=== PATIENT | male | born 1930 | race Two or more races ===

== ENCOUNTER → 2016-04-11 | Outpatient (CLI) | payer MEDICARE, OTHER ==
[~2016-04-11] MED LIST: /AMLO25TA; ACET500C; AMLO5TAB2 PO; ASPI325T; CEPH500T PO; CIPR500T89 PO; CIPR5SUS PO; CLARINEX; CLOP75TA2 PO; DIOV160T5; DITR5TAB PO; ECOT325T5; ESOM1CAP5 PO; FERR325T3 PO; FLOM5CAP PO; GABA-279 PO; IBUPPOW25; NEXI40GR; NICOTINE; OXYC1TAB23 PO; PROA1AER INH; SIMV20TA2 PO; SLOWTAB; SLOWTAB2 PO; STOO100C PO; VALS1TAB48 PO; VITAD1000T PO; VITAMIN D50000 UNT; ZOCO20TA
[2016-04-11 13:26] LABS: INR 1.03
[2016-04-11 13:28] LABS: CALCIUM LEVEL 8.9 MG/DL (8.8-10.2); CREATININE FOR GFR 3.2 MG/DL (0.70-1.30); GLOMERULAR FILTRATION RATE 19.8 (>35); MEAN CORPUSCULAR HEMOGLOBIN 31.8 pg (27.0-33.0); MEAN CORPUSCULAR HGB CONC 31.7 g/dl (32.0-36.5); MEAN CORPUSCULAR VOLUME 100.2 fl (80.0-96.0); RED CELL DISTRIBUTION WIDTH 13.3 % (11.5-14.5)
[2016-04-11 13:29] LABS: POTASSIUM SERUM 5.9 MEQ/L (3.5-5.1)
== END ==
LOC: M SMT 09:50
PROVIDERS: ATTEND Nurse Practitioner Women's Health
DX: Z01.818 Encounter for other preprocedural examination (principal); N13.2 Hydronephrosis with renal and ureteral calculous obstruction; Z79.899 Other long term (current) drug therapy
CPT/HCPCS: 36415; 80048; 85027; 85610; 85730; 87086; G0463

== ENCOUNTER → 2016-04-18 | Outpatient (CLI) | payer MEDICARE, OTHER ==
[~2016-04-18] MED LIST changes: -CEPH500T PO; -CIPR500T89 PO; -CIPR5SUS PO; -DITR5TAB PO; -OXYC1TAB23 PO
--- NOTE | 2016-04-18 11:37 | REP ---
Chest x-ray: Three views. History: Ureteral stone with hydronephrosis. Comparison chest x-ray is from April 16, 2014. Findings: The lungs remain rather hyperinflated consistent with COPD with flattening of the hemidiaphragms and an increase in the AP diameter of the chest. This is unchanged. The heart is not enlarged. The aorta is calcific and tortuous. There is some calcific pleural plaquing visible bilaterally suggesting previous asbestos exposure. This is also unchanged. No infiltrate is noted. No significant bony abnormality is seen. Impression: Evidence of COPD. No acute infiltrate or other acute disease seen. Signed by Sheng Harry MD 04/18/2016 12:28 P
== END ==
LOC: M SMT 10:06
PROVIDERS: ATTEND Nurse Practitioner Women's Health
DX: N13.2 Hydronephrosis with renal and ureteral calculous obstruction (principal)

== ENCOUNTER → 2016-04-21 | Day surgery (SDC) | payer MEDICARE, OTHER ==
[~2016-04-21] VITALS: Ht 165.1 cm; Wt 59.0 kg
[~2016-04-21] MED LIST changes: +CIPROFLOXACIN 400 MG in APPROPRIATE DILUENT 1 EA IV ONE; +CONRAY-60 60% 50ML VIAL (Q9961) As Ordered ONE; +DITR5TAB PO; +LIDOCAINE 2% INJ 100 MG/5 ML SDV (FOR ANES.) As Ordered ONE; +LR 1,000 ML IV SCH; +METOCLOPRAMIDE INJ 10MG/2ML VIAL (J2765) IV PRN; +ONDANSETRON 4MG/2ML VIAL (J2405) As Ordered ONE; +ONDANSETRON 4MG/2ML VIAL (J2405) IV PRN; +OXYC1TAB23 PO; +PERCOCET 5MG/325MG TAB PO PRN; +PROPOFOL 200 MG/20 ML VIAL As Ordered ONE; +dexameTHASONE 4 MG/ML 1ML VIAL (J1100) As Ordered ONE; +fentaNYL 100 MCG/2 ML INJECTION (J3010) As Ordered ONE; +fentaNYL 100 MCG/2 ML INJECTION (J3010) IV PRN; +oxyBUTYnin 5 MG TAB PO PRN
--- NOTE | 2016-04-21 08:44 | CR ---
DATE OF CONSULTATION: 04/20/2016 PREOPERATIVE EVALUATION AND CONSULTATION PLANNED SURGERY (DIFFERENT THAN ORIGINALLY PLANNED): He is to have a left retrograde pyelogram, left ureteroscopy, basket extraction of stone, possible laser lithotripsy and placement of a left JJ stent via cystoscopy. It is to be done by Dr. Plaza, although originally planned to be with Dr. Wilburn. The date of surgery was moved to tomorrow (04/21/2016). The patient has been off his Plavix, which he will need to be off for at least 7 days. HISTORY OF PRESENT ILLNESS: This a pleasant 85-year-old gentleman who is well known to me and presents today for preoperative evaluation prior to surgery planned for tomorrow. Surgery is listed above, with Dr. Plaza. The patient denies any acute complaints. He does have known chronic obstructive pulmonary disease (COPD) and a chronic cough, for which he follows with [facility]. He is known to have emphysema. He most recently saw pulmonary on 03/23/2016 and was felt to be stable. Subsequently, he saw Dr. Ulloa for some worsening renal function and was found to have a proximal renal calculi in need of being removed and this is being completed. The patient has no known coronary artery disease, although he does have some moderate aortic valve sclerosis and moderate insufficiency, which has been stable. He has significant renal insufficiency with a creatinine that has risen acutely. Although his creatinine was 2.8 in July, it has gone over 3 recently. The patient notes only mild left sided abdominal pain. He denies any problems with anesthesia in the past; however, I am concerned about obstructive sleep apnea, as is Dr. 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 He did have a transient ischemic attack, which indicates possible artery vessel pathology, but again has been on Plavix and has had no cardiac issues. He does smoke, this is problematic, and he does understand that he is at relatively high risk for anesthesia at this point. The patient again does feel well today. Has multiple other medical problems that appear to be controlled, including gastroesophageal reflux disease (GERD) symptoms, some cervical spine stenosis, for which he follows with neurology, history of a lung lesion, followed by Dr. Bourgeois, medication for benign prostatic hypertrophy (BPH), which he notes appears to be appropriate. He is also on medication for hypertension, which appears to have been controlled. PAST MEDICAL HISTORY: 1. Chronic kidney disease stage IV. 2. Chronic obstructive pulmonary disease (COPD) with continued use of tobacco. 3. Obstructive sleep apnea, has bilevel positive airway pressure (BIPAP) that he has not been using. 4. History of transient ischemic attack. 5. Peripheral vascular disease. 6. Aortic valve sclerosis. 7. Adenomatous polyp of the colon. 8. Vitamin D deficiency. 9. Low magnesium. PAST SURGICAL HISTORY: 1. Bilateral cataract removal. 2. Large sebaceous cyst removed from his back. 3. Cholecystectomy with Dr. Merino in 2006. 4. Tonsillectomy as a child. 5. Colonoscopies with Dr. Merino. MEDICATIONS: - omeprazole 40 mg by mouth daily - vitamin D3 1000 mg daily - Colace 100 mg daily - magnesium citrate for constipation as needed - ProAir HFA two puffs every 4 hours as needed for shortness of breath - Slow-mag two tablets daily - Flomax 0.4 mg daily - simvastatin 20 mg daily - Plavix 75 mg daily (presently on hold for planned surgery) - iron 325 mg by mouth daily - losartan 250 mg by mouth daily - Donepezil SOCIAL HISTORY: The patient lives with his Carlotta. They have two children, Claire Bird who lives locally and their son David lives in [place]. 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 He does smoke and presently smokes about a half of a pack a day. He has been doing this for over 63 years. He rarely takes alcohol. FAMILY HISTORY: Father of heart disease. Mother of acute coronary syndrome as well. REVIEW OF SYSTEMS: As per history of present illness. Otherwise, 10-system review is completely negative. He is having no acute respiratory symptoms. PHYSICAL EXAMINATION: Blood pressure 138/62, pulse 83, respiratory rate 12, oxygen saturation 98% on room air. Weight is 138 pounds. GENERAL: Very pleasant man of his stated age. Somewhat thin, no acute distress. Nontoxic. He is alert and oriented times three at this point in time. He is very pleasant. He does have some gaps in his memory, as we discussed, but generally functions quite well. HEENT: Within normal limits. Oral cavity and oropharynx is benign. NECK: Supple. No lymphadenopathy or thyromegaly. HEART: Regular rate and rhythm. S1, S2. 2/6 systolic murmur noted. ABDOMEN: Soft, nontender, nondistended. He does note an occasional aching in his left lower back, but abdomen is benign. EXTREMITIES: No edema whatsoever. No clubbing or cyanosis. NEUROLOGIC: Aside from some possible lapses in his memory, otherwise appears to be nonfocal. LABORATORY DATA: From [facility], a CBC and BMP were completed on 04/11/2016 and showed a hemoglobin of 11.4, normal WBC and platelets, potassium is 5.9, creatinine 3.2. The rest of the electrolytes and glucose are normal. EKG shows normal sinus rhythm. Some biphasic atria, but otherwise no significant focal abnormalities. ASSESSMENT AND PLAN: 1. Preoperative evaluation and consultation. At this point in time, the patient is at significant risk due to his respiratory status; however, his respiratory status is stable without exacerbation. He has no clear underlying cardiac issues; however, he does continue to smoke and has controlled blood pressure. He will be monitored closely. He does appear to have a diagnosis of obstructive sleep apnea and has BiPAP but is not using it at home. This will need to be monitored closely and possibly treated. He has had no other previous anesthesia issues. Again, he has been off his Plavix and does understand the importance of this to preserve renal function at this point, especially his electrolytes as well. If there are new issues or concerns, he will let me know. I did speak to Elsa at Dr. Plaza's office, letting her know this dictation will be forthcoming today in order for him to go surgery tomorrow. 2. Calculus of the kidney. The patient does have some aching, however, not severe. It is affecting his renal function and he looks forward to having this removed. 3. Chronic obstructive pulmonary disease (COPD). The patient does have extensive emphysema; however, there is no active exacerbation. He will continue with his present medication appropriately at this point. 4. Nicotine dependence. I have discussed with him in detail the importance of quitting. He has quit independently and I have asked him to quit once again. He will think about it and let me know. 5. Chronic kidney disease. This is worsening at this point in time. Again, intervention is imperative at this point. 6. Hypertensive chronic kidney disease. Blood pressure is controlled on present medications. He is going to be holding his valsartan perioperatively in order to avoid further complications. 7. Anemia. Although mild, he does take iron and this is likely due to renal function, but we will continue to evaluate. 8. Constipation. Appears to be controlled with the current medication, we will continue. 9. History of transient ischemic attack. He is on Plavix and we are continuing this and we will monitor. 10. Gastroesophageal reflux disease (GERD). Generally controlled on present medication. We will wean if able. 11. Benign prostatic hypertrophy (BPH), stable on Flomax. 12. Memory impairment. Has been mild. He has been generally doing well and we will continue to work on optimizing this. 13. Vitamin D deficiency. The patient has been taking over the counter medications. We will continue to optimize. 14. Ongoing care. I will be seeing the patient as scheduled. My hope is that he will do well with surgery. He does understand that his risk, as does his , and they will followup if there are new concerns at that time.
[2016-04-21] MEDS: D5W/0.2% SODIUM CHLORIDE 250 ML IV SCH ×2 (09:15→10:00)
--- NOTE | 2016-04-21 14:08 | REP ---
Retrograde pyelogram: This two views. History: Kidney stones. Findings: 1 minute nine seconds of fluoroscopy time was utilized. A sequence of two fluoroscopically obtained last image hold spot radiographs document left ureteral cannulation, contrast injection, hydronephrosis, and double pigtail ureteral stent placement. Signed by Sheng Harry MD 04/21/2016 02:00 P
[2016-04-21 18:20] VITALS: BP 122/60
--- NOTE | 2016-04-22 13:52 | RO ---
DATE OF PROCEDURE: 04/21/2016 PREPROCEDURE DIAGNOSIS: Left ureteral stone. POSTPROCEDURE DIAGNOSIS: Left ureteral stone, left ureteral stricture. PROCEDURE: Cystoscopy, left ureteroscopy with balloon dilation of ureteral stricture, left retrograde pyelogram with intraoperative interpretation of images, left ureteral stent placement. SURGEON: Dr. Benigno Plaza SNOW REMOVER: None. ANESTHESIA: General. OPERATIVE INDICATIONS: This is an 85-year-old male who was found to have a 1 cm obstructing proximal left ureteral stone. Based on patient's history, there was concern that the stone has been present for several months. It was recommended he be brought to the operating room today for the above listed procedure. DESCRIPTION OF PROCEDURE: The patient was brought to the operating room and general anesthesia was induced. Prophylactic antibiotics were infused. He was then placed in the dorsal lithotomy position and prepped and draped in the usual sterile fashion. The rigid cystoscope was then inserted into the urethral meatus and advanced into the bladder. Once within the bladder, a wire was advanced up the left collecting system. Of note, the 1 cm stone was radiopaque and continued to be seen in the proximal ureter. After the wire was advanced up the left collecting system, I then advanced a ureteral access sheath over the wire into the left ureter. Of note, the access sheath only went as far up as the mid ureter and we did not get it up to the area of the stone. At this point, I went in with a flexible ureteroscope into the ureter and within the mid ureter there was a moderate left ureteral stricture through which I could not advance the scope. I tried advancing a wire up into the left collecting system and going over the wire into the left collecting system and the scope would not advance past the stricture. At this point, I removed the scope and advanced a balloon dilator into the left ureter. I dilated the stricture up to 18 atmospheres several times. Of note, it did not appear that the balloon was able to stretch the stricture out very wide. I then removed the balloon dilator and tried going back in with the flexible ureteroscope several times. I could not advance the ureteroscope past this area of narrowing. At this point, it was clear I was not going to be able to treat the stone today via flexible ureteroscopy and therefore I removed the scope along with the ureteral access sheath. I then advanced a 5 [place]ian open ended ureteral catheter up into the left collecting system over the wire. The wire was then removed. The rest of the pyelogram was performed and was notable for moderate severe left hydroureteronephrosis.
--- NOTE | 2016-04-22 13:58 | RO ---
DATE OF PROCEDURE: 04/21/2016 PREPROCEDURE DIAGNOSIS: Left ureteral stone. POSTPROCEDURE DIAGNOSES: Left ureteral stone, left ureteral stricture. PROCEDURE: Cystoscopy, left ureteroscopy with balloon dilation of ureteral stricture, left retrograde pyelogram with intraoperative interpretation of images, left ureteral stent placement. SURGEON: Dr. Benigno Plaza SPECIAL EVENTS PLANNER: None. ANESTHESIA: General. OPERATIVE INDICATIONS: This is an 85-year-old male who was recently found to have a 1 cm obstructing proximal left ureteral stone. Of note, given patient's history, it is concern that the stone has been in place for several months. It was recommended he be brought to the operating room today for the above listed procedure. DESCRIPTION OF PROCEDURE: The patient was brought to the operating room where general anesthesia was induced. Prophylactic antibiotics were used. He was then placed in dorsal lithotomy position, prepped and draped in the usual sterile fashion. A rigid cystoscope was then inserted into the urethral meatus and advanced into the bladder. Once within the bladder, a wire was advanced up the left collecting system. Of note, the 1 cm stone was radiopaque and was easily seen within the proximal ureter. I then tried to advance a ureteral access sheath over the wire up into the left collecting system and it would not go past the mid ureter, therefore, was not able to get it up to the stone. At this point, I went in with the flexible ureteroscope and within the mid ureter, there was a moderate ureteral stricture. I tried to negotiate the flexible scope past the stricture and into the more proximal ureter and it would not go. I tried doing this over a wire as well and I could not get the scope up. At this point, I removed the ureteroscope and advanced a balloon dilator up into the left collecting system. I then dilated the balloon to 18 atmospheres several times within the area of the stricture and of note, it did not appear that the balloon was opening the stricture up very well. I then removed the balloon dilator and then went back up into the left collecting system with a flexible ureteroscope and I still could not get the ureteroscope past the stricture. At this point, it became very clear that I was not going to be able to get the ureteroscope up to the level of the stone to actually treat the stone today. I therefore removed the ureteroscope along with the access sheath and advanced a 5-[place] open ended ureteral catheter over the wire up into the left collecting system. The wire was then removed and a retrograde pyelogram was performed and it was notable for moderate left hydroureteronephrosis. There was no extravasation. The wire was then advanced back up the left collecting system and the open ended ureteral catheter was removed. Next, I advanced a 7-[place] x 22-32 cm JJ ureteral stent over the wire up into the left collecting system. The wire was then removed and there were adequate curls of the stent in the left renal pelvis and in the bladder. The bladder was then emptied of all fluid and this marked the conclusion of the procedure. The patient was then taken out of dorsal lithotomy position, awakened from anesthesia and transported to the recovery room in stable condition. ESTIMATED BLOOD LOSS: 0 mL. COMPLICATIONS: None. SPECIMENS: None. PLAN: I will leave the patient's stent in place for a few weeks to allow it to passively dilate the ureter. I will have to bring him back to the operating room in a few weeks to see if I can actually get the ureteroscope up to the stone and then treat it on that day. RAMÍREZ
== END | disposition home or self-care (01) ==
LOC: M SDC 08:53
PROVIDERS: ATTEND Urology
DX: N13.2 Hydronephrosis with renal and ureteral calculous obstruction (principal); I12.9 Hypertensive chronic kidney disease with stage 1 through stage 4 chronic kidney disease, or unspecified chronic kidney disease; K21.9 Gastro-esophageal reflux disease without esophagitis; E78.00 Pure hypercholesterolemia, unspecified; J44.9 Chronic obstructive pulmonary disease, unspecified; N18.4 Chronic kidney disease, stage 4 (severe); G47.33 Obstructive sleep apnea (adult) (pediatric); D50.9 Iron deficiency anemia, unspecified; E55.9 Vitamin D deficiency, unspecified; I73.9 Peripheral vascular disease, unspecified; F17.210 Nicotine dependence, cigarettes, uncomplicated; Z86.73 Personal history of transient ischemic attack (TIA), and cerebral infarction without residual deficits; I35.0 Nonrheumatic aortic (valve) stenosis; Z79.899 Other long term (current) drug therapy; Z79.02 Long term (current) use of antithrombotics/antiplatelets; N40.0 Benign prostatic hyperplasia without lower urinary tract symptoms

== ENCOUNTER 2016-04-23 23:26 | Inpatient (IN) | payer MEDICARE, OTHER ==
[~2016-04-23] VITALS: Ht 165.1 cm; Wt 66.0 kg
[~2016-04-23 23:26] MED LIST changes: -CIPROFLOXACIN 400 MG in APPROPRIATE DILUENT 1 EA IV ONE; -CONRAY-60 60% 50ML VIAL (Q9961) As Ordered ONE; -DITR5TAB PO; -LIDOCAINE 2% INJ 100 MG/5 ML SDV (FOR ANES.) As Ordered ONE; -LR 1,000 ML IV SCH; -METOCLOPRAMIDE INJ 10MG/2ML VIAL (J2765) IV PRN; -ONDANSETRON 4MG/2ML VIAL (J2405) As Ordered ONE; -ONDANSETRON 4MG/2ML VIAL (J2405) IV PRN; -OXYC1TAB23 PO; -PERCOCET 5MG/325MG TAB PO PRN; -PROPOFOL 200 MG/20 ML VIAL As Ordered ONE; -dexameTHASONE 4 MG/ML 1ML VIAL (J1100) As Ordered ONE; -fentaNYL 100 MCG/2 ML INJECTION (J3010) As Ordered ONE; -fentaNYL 100 MCG/2 ML INJECTION (J3010) IV PRN; -oxyBUTYnin 5 MG TAB PO PRN
[2016-04-23] MEDS ORDERED: DITR5TAB PO (23:43)
[2016-04-23] MEDS ORDERED: OXYC1TAB23 PO (23:43)
[2016-04-24] VITALS (10 sets, daily range): BP systolic 100–145; BP diastolic 57–68; O2SAT 96–99
[2016-04-24] MEDS ORDERED: NS 1,000 ML IV SCH ×2 (00:12→03:39)
[2016-04-24 00:36] LABS: BASO % 0.1 % (0.0-1.0); EOS # 0.1 K/mm3 (0.0-0.50); EOS % 0.6 % (0.0-3.0); LARGE UNSTAINED CELL # 0.2 K/mm3 (0.0-0.4); LARGE UNSTAINED CELL % 2.1 % (0.0-4.0); LYMPH # 0.7 K/mm3 (1.5-4.5); LYMPH % 7.5 % (24.0-44.0); MEAN CORPUSCULAR HGB CONC 32.2 g/dl (32.0-36.5); MEAN CORPUSCULAR VOLUME 96.3 fl (80.0-96.0); MONO # 0.5 K/mm3 (0.0-0.8); MONO % 5.4 % (0.0-5.0); NEUTROPHILS # 7.8 K/mm3 (1.8-7.7); NEUTROPHILS % 84.3 % (36.0-66.0); PLATELET COUNT, AUTOMATED 201 k/mm3 (150-450); RED CELL DISTRIBUTION WIDTH 13.2 % (11.5-14.5); WHITE BLOOD COUNT 9.2 K/mm3 (4.0-10.0)
[2016-04-24 01:01] LABS: CALCIUM LEVEL 8.2 MG/DL (8.8-10.2); CREATININE FOR GFR 6.92 MG/DL (0.70-1.30); GLOMERULAR FILTRATION RATE 8.1 (>35)
[2016-04-24 01:08] LABS: POTASSIUM SERUM 5.6 MEQ/L (3.5-5.1)
--- NOTE | 2016-04-24 02:00 | REPUSA ---
CLINICAL HISTORY: Obstructive uropathy. TECHNIQUE: Multiple axial and coronal CT images were obtained through the abdomen and pelvis without administration of oral or IV contrast material. COMMENTS: Comparison is made to the prior exam performed on 06/14/2013. Unchanged 8mm left renal nonobstructing calculus. Interval appearance of air densities in the left collecting system. Interval appearance of moderate amount of free fluid present in the retroperitoneum on the left-sided and associated free air densities. Low position of the left ureteral catheter with its upper loop coiled in the proximal ureter. Fluid-filled distended stomach suggestive of gastroparesis. Moderate large bowel fecal stasis suggestive of constipation. The liver is of uniform attenuation without mass or defect. There is no intra or extrahepatic biliary ductal dilatation. The spleen is normal. The gallbladder is surgically absent. The pancreas is of normal contour and attenuation characteristics. There is no evidence of adrenal mass. Right inguinal hernia containing nonincarcerated small bowel's. There is no evidence for appendicitis. There is no bowel wall thickening. No evidence for small or large bowel obstruction. There is no evidence of abdominal ascites or lymphadenopathy. There is no evidence of intrinsic or extrinsic bladder mass. There is no pelvic ascites or lymphadeno noam. Images of the lung bases show no evidence of pleural or parenchymal mass. Bilateral basilar peribronc hial interstitial thickening suggestive of bronchitis. Bilateral basilar atelectatic pulmonary change s. There are no pleural effusions. The bony structures are free of lytic or blastic lesions. IMPRESSION: Moderate amount of free fluid in the retroperitoneal space on the left side. Associated free air densities are noted. Low position of the left double-J catheter with its upper loop at the level of the proximal ureter. Unchanged left renal nonobstructing stone. Distended bladder. Constipation. Gastroparesis. Thank you for your kind referral of this patient.
[2016-04-24 03:15] LABS: ALBUMIN 3.2 GM/DL (3.2-5.2); ALBUMIN/GLOBULIN RATIO 0.97 (1.00-1.93); BILIRUBIN,TOTAL 0.9 MG/DL (0.2-1.0); MAGNESIUM LEVEL 2.2 MG/DL (1.8-2.4); TOTAL PROTEIN 6.5 GM/DL (6.4-8.2)
[2016-04-24] MEDS ORDERED: SOD POLYSTYRENE SULFONATE SUSP 15 GM/60 ML UD PO ONE (03:32)
--- NOTE | 2016-04-24 04:07 | HPEPDOC ---
General Date of Admission Apr 24, 2016 at 02:39 Chief Complaint The patient is a 85-year-old male Presented to the ER with complaints of abdominal pain and inability to urinate History of Present Illness Patient is an 85 year old male with a PMHx of TIA (8 years ago), CKD4 , COPD (not on O2), HTN, DLP and Hx of nephrolithiasis who presented to the ED with complaints of abdominal pain and inability to urinate. Patient noted that he has a history of renal stones and was being monitored as an outpatient by Dr. Ulloa and his PCP. He noted that in February he had some abdominal pain that was followed up with a CT scan that revealed the kidney stone was in his ureter. He followed up with Dr. Plaza 1 week ago and was scheduled for a cystoscopy on 04/21. This (04/21) patient has had a cystoscopy and stenting of the left ureter and was discharged. Since the surgery he has been having worsening of his abdominal pain and noted that he was not able to pass any urine. He reported the abdominal pain as an 8/10, burning, non-radiating, no alleviating or aggravating factors. Associated with nausea, but no vomiting. He denies any chest pain, shortness of breath, cough, fevers, constipation or diarrhea. In the ER he had a CT scan which revealed bladder distension and a a Henry catheter was placed, which lead to a large volume of urine that was collected. Home Medications Scheduled (Esomeprazole Magnesium) 40 Mg Cap 40 MG PO DAILY (Reported) Amlodipine Besylate (Amlodipine Besylate) 5 Mg Tab 5 MG PO DAILY (Reported) Clopidogrel Bisulfate (Clopidogrel) 75 Mg Tab 75 MG PO DAILY (Reported) Docusate Sodium (Stool Softener) 100 Mg Cap 100 MG PO DAILY (Reported) Ferrous Sulfate (Ferrous Sulfate) 325 Mg Tab 325 MG PO DAILY (Reported) Gabapentin (Gabapentin) 100 Mg Cap 100 MG PO DAILY (Reported) Magnesium Chloride (Slow-Mag 71.5-119 mg) 1 Tab Tab 2 TAB PO DAILY (Reported) Simvastatin (Simvastatin) 20 Mg Tab 20 MG PO DAILY (Reported) Tamsulosin Hydrochloride (Flomax) 0.4 Mg Cap 1 CAP PO DAILY (Reported) Valsartan (Valsartan) 320 Mg Tab 320 MG PO DAILY (Reported) Vitamin D (Vitamin D3) 1,000 Units Tab 1,000 UNITS PO DAILY (Reported) Scheduled PRN Albuterol Sulfate (Proair Hfa) 108 Mcg/Act Aer 2 PUFF INH PRN DYSPNEA (Reported ) Oxybutynin Chloride (Ditropan Xl) 5 Mg Tab 5 MG PO Q8H PRN PRN Urinary Frequency (Reported) Oxycodone/Acetaminophen (Oxycodone/Acetaminophen 5-325 mg) 1 Tab Tab 1 TAB PO Q6HP PRN PRN PAIN (Reported) Allergies Coded Allergies: Amoxicillin (Verified Allergy, Unknown, 04/21/16) Clavulanic Acid (Verified Allergy, Unknown, 04/19/16) Scopolamine (Verified Adverse Reaction, Unknown, HALLUCINATIONS, 05/15/12) Past Medical History Medical History TIA (8 years ago), CKD4, COPD (not on O2), HTN, DLP and Hx of nephrolithiasis Surgical History Cholecystectomy Perirectal abscess Family History - Non-contributory Social History - Denies the use of alcohol or illicit drugs; Smoker of 70 years at 0.5 ppd - Denies recent travel or sick contacts - Lives with - 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; 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 Review of Symptoms Other systems Constitutional: Denies weight loss, change in appetite, or recent trauma Eyes: No visual changes or eye pain Ears, Nose, Throat: Denies nose bleeds, or difficulty swallowing Cardiovascular: Denies chest pain, sweating, or orthopnea Respiratory: Denies cough, wheezing, or shortness of breath GI: Positive nausea and abdominal pain, No diarrhea or constipation : Inability to urinate Musculoskeletal: Denies joint pain or swelling Neuro / Psych: Denies muscle weakness or sensory loss Skin: No skin rashes noted All other review of systems negative; otherwise stated in history of present illness Vital Signs - Vitals: BP 130/62, HR 86, RR 18, Sat 96%RA, Temp 99.9F - General: Lying in bed, No acute distress, Speaking in full sentences, AAOx3 - HEENT: NC, AT, PERRLA, EOMI - CVS: RRR, +S1S2, - Murmurs / rubs / gallops - Lungs: Fair air entry bilaterally, Clear to auscultation, No wheezing / rales / rhonchi - Abdomen: Soft, No distension, mild tenderness at hypogastric area, + Bowel sounds x 4, Henry in place - Extremities: + PPx4, No lower extremity edema, No calf tenderness - Neuro: No focal motor or sensory deficit - Skin: No visible rashes Laboratory Data Labs 24H Laboratory Tests 2 04/24/16 00:26: Blood Urea Nitrogen 67H, Creatinine 6.92H, Sodium Level 135L, Potassium Level 5.6H, Chloride Level 105, Carbon Dioxide Level 17L, Calcium Level 8.2L, Aspartate Amino Transf (AST/SGOT) 17, Alanine Aminotransferase (ALT/SGPT) 17, Alkaline Phosphatase 156H, Total Bilirubin 0.9, Total Protein 6.5, Albumin 3.2, Albumin/Globulin Ratio 0.97L, Anion Gap 13, White Blood Count 9.2, Red Blood Count 3.53L, Hemoglobin 11.0L, Hematocrit 34.0L, Mean Corpuscular Volume 96.3H, Mean Corpuscular Hemoglobin 31.0, Mean Corpuscular Hemoglobin Concent 32.2, Red Cell Distribution Width 13.2, Platelet Count 201, Neutrophils (%) (Auto) 84.3H, Lymphocytes (%) (Auto) 7.5L, Monocytes (%) (Auto) 5.4H, Eosinophils (%) (Auto) 0.6, Basophils (%) (Auto) 0.1, Neutrophils # (Auto) 7.8H, Lymphocytes # (Auto) 0.7L, Monocytes # (Auto) 0.5, Eosinophils # (Auto) 0.1, Basophils # (Auto) 0.0, Glomerular Filtration Rate 8.1L, Lactic Acid (Sepsis) 0.7, Large Unclassified Cells # 0.2, Large Unclassified Cells % 2.1, Magnesium Level 2.2 04/24/16 02:33: CBC/BMP Laboratory Tests 04/24/16 00:26 Calcium Level 8.2 L, Aspartate Amino Transf (AST/SGOT) 17, Alanine Aminotransferase (ALT/SGPT) 17, Alkaline Phosphatase 156 H, Total Bilirubin 0.9 , Total Protein 6.5, Albumin 3.2, Red Blood Count 3.53 L, Mean Corpuscular Volume 96.3 H, Mean Corpuscular Hemoglobin 31.0, Mean Corpuscular Hemoglobin Concent 32.2, Red Cell Distribution Width 13.2, Neutrophils (%) (Auto) 84.3 H, Lymphocytes (%) (Auto) 7.5 L, Monocytes (%) (Auto) 5.4 H, Eosinophils (%) (Auto ) 0.6, Basophils (%) (Auto) 0.1, Neutrophils # (Auto) 7.8 H, Lymphocytes # (Auto ) 0.7 L, Monocytes # (Auto) 0.5, Eosinophils # (Auto) 0.1, Basophils # (Auto) 0.0 Microbiology Microbiology 04/24/16 Blood Culture, Received Pending 04/24/16 Blood Culture, Received Pending 04/24/16 Urine Culture, Received Pending Plan / VTE VTE Prophylaxis Ordered?: Yes Plan / Urinary Catheter Reason for insertion/continuin: Acute obstruct/retention Plan Plan Acute kidney injury on chronic kidney disease (Stage 4) likely 2/2 post-renal etiology 2/2 inability to void - Presented with abdominal pain and inability to urinate since cystoscopy on - Physical initially revealed abdominal distension at supra-pubic area that resolved with Henry insertion - Insertion of Henry has collected >800 cc of urine - CT abdomen 04/24: reveals distended bladder, constipation, gastroparesis and unchanged left renal non-obstructing stone, also reveals moderate amount of free fluid in the retroperitoneal space on left side - Will keep Henry in, check urine electrolytes and urinalysis and urine culture - Will stop oxybutynin prescribed from 04/21 - Will c/w IV fluid hydration and empirically cover with Meropenem - ER physician has discussed with urology; have recommended to continue with Henry and IV fluid hydration for now - Will consult nephrology in AM Hyperkalemia likely 2/2 VIKASH on CKD4 - EKG without any changes - will give kayexylate 15g PO x 1 time COPD (not on O2) - no evidence of exacerbation - will continue with home inhaled therapy HTN - Will c/w amlodipine - Will hold Valsartan (re: VIKASH) DLP - c/w simvastatin TIA (8 years ago) - c/w aspirin Gastrointestinal prophylaxis - Will start protonix DVT prophylaxis - Will start heparin LON APONTE MD Apr 24, 2016 04:07
[2016-04-24] MEDS ORDERED: PERCOCET 5MG/325MG TAB PO PRN (04:15)
[2016-04-24] MEDS ORDERED: ALBUTEROL 90 MCG/ACT 8GM HFA INHALER INH PRN (04:15)
[2016-04-24] MEDS: ACETAMINOPHEN TAB 650MG DOSE (2X325MG) PO PRN ×2 (05:37→22:07)
[2016-04-24] MEDS ORDERED: HEPARIN SOD (PORCINE) 5000 UNITS/ML VIAL SC SCH (06:00)
[2016-04-24] MEDS: MEROPENEM INJ 500 MG in D5W MINI-BAG PLUS 100 ML IV SCH ×2 (06:02→19:55)
[2016-04-24 07:04] LABS: ALBUMIN 2.7 GM/DL (3.2-5.2); ALBUMIN/GLOBULIN RATIO 0.93 (1.00-1.93); BILIRUBIN,TOTAL 0.9 MG/DL (0.2-1.0); CALCIUM LEVEL 7.6 MG/DL (8.8-10.2); CREATININE FOR GFR 6.32 MG/DL (0.70-1.30); MAGNESIUM LEVEL 2.1 MG/DL (1.8-2.4); POTASSIUM SERUM 5.5 MEQ/L (3.5-5.1); TOTAL PROTEIN 5.6 GM/DL (6.4-8.2)
[2016-04-24 07:11] LABS: BASO % 0.2 % (0.0-1.0); EOS % 0.5 % (0.0-3.0); LARGE UNSTAINED CELL # 0.2 K/mm3 (0.0-0.4); LARGE UNSTAINED CELL % 2.2 % (0.0-4.0); LYMPH # 0.9 K/mm3 (1.5-4.5); LYMPH % 8.6 % (24.0-44.0); MEAN CORPUSCULAR HEMOGLOBIN 31.7 pg (27.0-33.0); MEAN CORPUSCULAR HGB CONC 32.4 g/dl (32.0-36.5); MEAN CORPUSCULAR VOLUME 97.9 fl (80.0-96.0); MONO # 0.6 K/mm3 (0.0-0.8); MONO % 6.8 % (0.0-5.0); NEUTROPHILS # 7.1 K/mm3 (1.8-7.7); NEUTROPHILS % 81.7 % (36.0-66.0); PLATELET COUNT, AUTOMATED 202 k/mm3 (150-450); RED CELL DISTRIBUTION WIDTH 13.3 % (11.5-14.5); WHITE BLOOD COUNT 8.6 K/mm3 (4.0-10.0)
[2016-04-24] MEDS: GABAPENTIN 100 MG CAP PO SCH (08:56)
[2016-04-24] MEDS: DOCUSATE SODIUM 100 MG CAP PO SCH (08:57)
[2016-04-24] MEDS: FERROUS SULFATE 325MG TAB PO SCH (08:57)
[2016-04-24] MEDS: SIMVASTATIN 20 MG TAB PO SCH (08:57)
[2016-04-24] MEDS: PANTOPRAZOLE 40MG TAB (PROTONIX) PO SCH (08:57)
[2016-04-24] MEDS: TAMSULOSIN 0.4 MG CAP PO SCH (08:57)
[2016-04-24] MEDS: amLODIPine 5 MG TAB PO SCH (08:57)
[2016-04-24] MEDS ORDERED: CLOPIDOGREL 75 MG TAB PO SCH (09:00)
[2016-04-24] MEDS ORDERED: CALCIUM GLUCONATE 1,000 MG in D5W MINI-BAG PLUS 100 ML IV ONE (13:00)
[2016-04-24 13:02] LABS: PERCENT SATURATION 6.3 % (19.7-37.4); PHOSPHORUS LEVEL 4.5 MG/DL (2.5-4.9)
[2016-04-24] MEDS ORDERED: LACTULOSE 20 GM/30 ML SYRUP UD PO PRN (13:15)
--- NOTE | 2016-04-24 13:15 | SMCUROLCON ---
Urology Consultation General Date of Consultation 04/24/16 Reason For Consultation This patient is seen for Acute Renal Failure Superimposed On Stage 4 Acute on chronic renal failure; LK stone; AUR; distal migration left JJ. NPO. Cystoscopy , left RPG, JJ change. Hold Plavix. Full consultation dictated. History of Present Illness The patient is a -year-old with a past medical history for . Medications Current Medications Current Medications Acetaminophen (Tylenol Tab) 650 mg Q4HP PRN PO MILD PAIN OR FEVER Last administered on 04/24/16 05:37; Start 04/24/16 at 02:45; Stop 05/24/16 at 02:44 Albuterol Sulfate (Proventil, Ventolin Hfa) 2 puff Q4HP PRN INH DYSPNEA; Start 04/24/16 at 04:15; Stop 05/24/16 at 04:14 Albuterol/ Ipratropium (Duoneb (Ipr 0.5mg/Alb 2.5mg)) 3 ml RQ6H NEB ; Start at 14:00; Stop 04/25/16 at 08:01 Amlodipine Besylate (Norvasc) 5 mg DAILY PO Last administered on 04/24/16 08: 57; Start 04/24/16 at 09:00; Stop 05/24/16 at 08:59 Clopidogrel Bisulfate (PLAVix) 75 mg DAILY PO Last administered on 04/24/16 08 :57; Start 04/24/16 at 09:00; Stop 04/24/16 at 12:06; Status DC Docusate Sodium (Colace) 100 mg DAILY PO Last administered on 04/24/16 08:57; Start 04/24/16 at 09:00; Stop 05/24/16 at 08:59 Ferrous Sulfate (Ferrous Sulfate) 325 mg DAILY PO Last administered on 08:57; Start 04/24/16 at 09:00; Stop 05/24/16 at 08:59 Gabapentin (Neurontin) 100 mg DAILY PO Last administered on 04/24/16 08:56; Start 04/24/16 at 09:00; Stop 05/24/16 at 08:59 Heparin Sodium (Porcine) (Heparin) 5,000 units Q8H SC Last administered on 04/24 05:37; Start 04/24/16 at 06:00; Stop 04/24/16 at 12:07; Status DC Home Med ASDIRECTED XX ; Start 04/24/16 at 03:15; Stop 04/24/16 at 03:39; Status DC Meropenem/Dextrose (Merrem/Dextrose 5% Mini-Bag Plus) 100 ml @ 200 mls/hr Q12H IV Last administered on 04/24/16 06:02; Start 04/24/16 at 05:00; Stop at 04:59 Oxycodone/ Acetaminophen (Percocet 5mg/ 325mg Tablet) 1 tab Q6HP PRN PO PAIN; Start 04/24/16 at 04:15; Stop 05/01/16 at 04:14 Pantoprazole Sodium (Protonix) 40 mg DAILY PO Last administered on 04/24/16 08 :57; Start 04/24/16 at 09:00; Stop 05/24/16 at 08:59 Simvastatin (Zocor) 20 mg DAILY PO Last administered on 04/24/16 08:57; Start 04/24/16 at 09:00; Stop 05/24/16 at 08:59 Sodium Bicarbonate/ Dextrose/Water (Sodium Bicarbonate/ Dextrose 5%) 1,100 ml @ 60 mls/hr [id number] IV ; Start 04/24/16 at 13:00; Stop 04/25/16 at 22:19 Sodium Chloride 1,000 ml @ 100 mls/hr Q10H IV Last administered on 04/24/16 00:34; Start 04/24/16 at 00:12; Stop 04/24/16 at 03:39; Status DC Sodium Chloride (Nacl 0.9%) 1,000 ml @ 100 mls/hr Q10H IV Last administered on 04/24/16 03:45; Start 04/24/16 at 03:39; Stop 04/24/16 at 11:45; Status DC Tamsulosin HCl 0.4 mg 0.4 mg DAILY PO Last administered on 04/24/16 08:57; Start 04/24/16 at 09:00; Stop 05/24/16 at 08:59 Allergies Allergies: Coded Allergies: Amoxicillin (Verified Allergy, Unknown, 04/21/16) Clavulanic Acid (Verified Allergy, Unknown, 04/19/16) Scopolamine (Verified Adverse Reaction, Unknown, HALLUCINATIONS, 05/15/12) Vital Signs/I&O Vital Signs Date Time Temp Pulse Resp B/P Pulse Ox O2 Delivery O2 Flow Rate FiO2 04/24/16 08:57 65 140/67 04/24/16 08:15 Room Air 04/24/16 08:00 96.9 18 96 I&O- Last 24 Hours up to 6 AM 04/24/16 05:59 Output Total 500 ml Balance -500 ml Laboratory Data 24H Labs Laboratory Tests 2 04/24/16 00:26: Blood Urea Nitrogen 67H, Creatinine 6.92H, Sodium Level 135L, Potassium Level 5.6H, Chloride Level 105, Carbon Dioxide Level 17L, Calcium Level 8.2L, Aspartate Amino Transf (AST/SGOT) 17, Alanine Aminotransferase (ALT/SGPT) 17, Alkaline Phosphatase 156H, Total Bilirubin 0.9, Total Protein 6.5, Albumin 3.2, Albumin/Globulin Ratio 0.97L, Anion Gap 13, White Blood Count 9.2, Red Blood Count 3.53L, Hemoglobin 11.0L, Hematocrit 34.0L, Mean Corpuscular Volume 96.3H, Mean Corpuscular Hemoglobin 31.0, Mean Corpuscular Hemoglobin Concent 32.2, Red Cell Distribution Width 13.2, Platelet Count 201, Neutrophils (%) (Auto) 84.3H, Lymphocytes (%) (Auto) 7.5L, Monocytes (%) (Auto) 5.4H, Eosinophils (%) (Auto) 0.6, Basophils (%) (Auto) 0.1, Neutrophils # (Auto) 7.8H, Lymphocytes # (Auto) 0.7L, Monocytes # (Auto) 0.5, Eosinophils # (Auto) 0.1, Basophils # (Auto) 0.0, Glomerular Filtration Rate 8.1L, Lactic Acid (Sepsis) 0.7, Large Unclassified Cells # 0.2, Large Unclassified Cells % 2.1, Magnesium Level 2.2 04/24/16 02:33: Urine Amorphous Sediment SMALLH, Urine Appearance HAZY, Urine Color YELLOW, Urine pH 5.0, Urine Specific Carroll 1.011, Urine Protein NEGATIVE, Urine Glucose (UA) NEGATIVE, Urine Ketones NEGATIVE, Urine Urobilinogen 0.2, Urine Bilirubin NEGATIVE, Urine Leukocyte Esterase NEGATIVE, Urine Bacteria (Auto) NEGATIVE, Urine Blood 3+H, Urine Calcium Carbonate Cryst(Auto) , Urine Calcium Oxalate Cryst (Auto) , Urine Calcium Phosphate Shanel (Auto) , Urine Cellular Casts , Urine Cystine Crystals , Urine Granular Casts (Auto) , Urine Hyaline Casts (Auto) 0, Urine Leucine Crystals , Urine Mucus (Auto) , Urine Nitrite NEGATIVE, Urine Oval Fat Bodies (Auto) , Urine RBC (Auto) 101H, Urine Random Creatinine 85.8, Urine Random Osmolality 371L, Urine Random Sodium 63, Urine Renal Epithelial Cells , Urine Sperm (Auto) , Urine Squamous Epithelial Cells 0 , Urine Transitional Epithelial Cells , Urine Trichomonas (Auto) , Urine Triple Phosphate Cryst (Auto) , Urine Tyrosine Crystals , Urine Uric Acid Crystals ( Auto) , Urine WBC (Auto) 4H, Urine Waxy Casts (Auto) , Urine Yeast-Like Cells ( Auto) 04/24/16 06:18: Blood Urea Nitrogen 63H, Creatinine 6.32H, Sodium Level 138, Potassium Level 5.5H, Chloride Level 110H, Carbon Dioxide Level 18L, Calcium Level 7.6L, Aspartate Amino Transf (AST/SGOT) 14L, Alanine Aminotransferase (ALT/SGPT) 15, Alkaline Phosphatase 148H, Total Bilirubin 0.9, Total Protein 5.6L, Albumin 2.7L , Albumin/Globulin Ratio 0.93L, Anion Gap 10, White Blood Count 8.6, Red Blood Count 3.16L, Hemoglobin 10.0L, Hematocrit 31.0L, Mean Corpuscular Volume 97.9H, Mean Corpuscular Hemoglobin 31.7, Mean Corpuscular Hemoglobin Concent 32.4, Red Cell Distribution Width 13.3, Platelet Count 202, Neutrophils (%) (Auto) 81.7H, Lymphocytes (%) (Auto) 8.6L, Monocytes (%) (Auto) 6.8H, Eosinophils (%) (Auto) 0.5, Basophils (%) (Auto) 0.2, Neutrophils # (Auto) 7.1, Lymphocytes # (Auto) 0.9L, Monocytes # (Auto) 0.6, Eosinophils # (Auto) 0.0, Basophils # (Auto) 0.0, Glomerular Filtration Rate 9.0L, Large Unclassified Cells # 0.2, Large Unclassified Cells % 2.2, Magnesium Level 2.1, Phosphorus Level 4.5, Ferritin 55 , Iron Level 17L, Total Iron Binding Capacity 269, Transferrin % Saturation 6.3L 04/24/16 07:17: Bedside Glucose (Misc Panel) 101 CBC/BMP Laboratory Tests 04/24/16 00:26 Calcium Level 8.2 L, Aspartate Amino Transf (AST/SGOT) 17, Alanine Aminotransferase (ALT/SGPT) 17, Alkaline Phosphatase 156 H, Total Bilirubin 0.9 , Total Protein 6.5, Albumin 3.2, Red Blood Count 3.53 L, Mean Corpuscular Volume 96.3 H, Mean Corpuscular Hemoglobin 31.0, Mean Corpuscular Hemoglobin Concent 32.2, Red Cell Distribution Width 13.2, Neutrophils (%) (Auto) 84.3 H, Lymphocytes (%) (Auto) 7.5 L, Monocytes (%) (Auto) 5.4 H, Eosinophils (%) (Auto ) 0.6, Basophils (%) (Auto) 0.1, Neutrophils # (Auto) 7.8 H, Lymphocytes # (Auto ) 0.7 L, Monocytes # (Auto) 0.5, Eosinophils # (Auto) 0.1, Basophils # (Auto) 0.0 04/24/16 06:18 Calcium Level 7.6 L, Aspartate Amino Transf (AST/SGOT) 14 L, Alanine Aminotransferase (ALT/SGPT) 15, Alkaline Phosphatase 148 H, Total Bilirubin 0.9 , Total Protein 5.6 L, Albumin 2.7 L, Red Blood Count 3.16 L, Mean Corpuscular Volume 97.9 H, Mean Corpuscular Hemoglobin 31.7, Mean Corpuscular Hemoglobin Concent 32.4, Red Cell Distribution Width 13.3, Neutrophils (%) (Auto) 81.7 H, Lymphocytes (%) (Auto) 8.6 L, Monocytes (%) (Auto) 6.8 H, Eosinophils (%) (Auto ) 0.5, Basophils (%) (Auto) 0.2, Neutrophils # (Auto) 7.1, Lymphocytes # (Auto) 0.9 L, Monocytes # (Auto) 0.6, Eosinophils # (Auto) 0.0, Basophils # (Auto) 0.0 , Phosphorus Level 4.5 Microbiology Microbiology 04/24/16 Blood Culture, Received Pending 04/24/16 Blood Culture, Received Pending 04/24/16 Urine Culture, Received Pending HARSH POOL MD Apr 24, 2016 13:15
[2016-04-24] MEDS ORDERED: GENTAMICIN 80 MG in APPROPRIATE DILUENT 1 EA IV PRN (13:30)
[2016-04-24] MEDS ORDERED: VANCOMYCIN HCL IV PRN (13:45)
[2016-04-24] MEDS ORDERED: D5W IV PRN (13:45)
[2016-04-24] MEDS: IPRATROPIUM 0.5MG/ALBUTEROL 2.5MG INH SOL UD 3ML (DUONEB)(J7620) NEB SCH ×2 (13:45→22:42)
[2016-04-24] MEDS ORDERED: PROPOFOL 200 MG/20 ML VIAL As Ordered ONE (13:46)
[2016-04-24] MEDS ORDERED: LIDOCAINE 2% INJ 100 MG/5 ML SDV (FOR ANES.) As Ordered ONE (13:46)
[2016-04-24] MEDS: SODIUM BICARBONATE 100 MEQ in D5W 1,000 ML IV SCH (14:00)
--- NOTE | 2016-04-24 14:17 | CR ---
DATE OF CONSULTATION: 04/24/2016 REQUESTING PHYSICIAN: Dr. Jeff Garcia CONSULTING PHYSICIAN: Dr. Ivon Crenshaw REASON FOR CONSULTATION: Acute kidney injury superimposed on chronic kidney disease stage IV. CHIEF COMPLAINT: Patient was brought into the emergency room last night with complaints of pain in the abdomen and decreased urine output. HISTORY OF PRESENT ILLNESS: Mr. Pardeep Stanley is an 85-year-old male with past medical history of chronic kidney disease stage IV with a baseline creatinine of 3.2 and history of left sided nephrolithiasis. The patient has multiple other comorbidities as well that are mentioned below. The patient's left sided kidney stone was recently found out to have moved to the ureter. The patient followed up with Dr. Plaza and he had a cystoscopy and ureteroscopy done on April 21, 2016 and after the cystoscopy he had stenting of the left ureter and he was discharged home. However, after being discharged home, he kept on complaining of abdominal pain and distention and inability to urinate. He was making very small amount of urine. His pain in the abdomen was around 8/10 in intensity, constant , burning, nonradiating, not relieved by anything, associated with nausea, no vomiting. There was no fever, but he was found to have more and more confusion and altered mental status by the family, so he was brought to the emergency room last night. Of note, the patient was also on oxybutynin for bladder spasms and oxycodone for pain in the abdomen. On initial evaluation in the emergency room, a CAT scan was done which showed the patient was having urinary retention with a distended bladder. The patient got a Henry catheter inserted last night. The patient's creatinine on admission was 6.9 with a potassium of 5.6. Nephrology service was called for further management of acute kidney injury superimposed on chronic kidney disease. The patient has been given 1 liter of normal saline IV so far since overnight. The patient's family was also present at the bedside and as reported by the family, the patient's mental status is significantly better after he got the Henry catheterization and IV antibiotics overnight. PAST MEDICAL HISTORY: The patient has a past medical history of chronic kidney disease stage IV. Chronic obstructive pulmonary disease (COPD), not on home oxygen. Hypertension. Hyperlipidemia. Left sided nephrolithiasis. History of transient ischemic attack (TIA) almost 8 years ago. PAST SURGICAL HISTORY: Patient has a history of drainage of perirectal abscess. Status post cholecystectomy. Status post cystoscopy and urethroscopy on April 21, 2016. ALLERGIES: Patient is allergic to: 1. AMOXICILLIN. 2. AUGMENTIN. 3. SCOPOLAMINE. FAMILY HISTORY: No significant family of end stage renal disease requiring hemodialysis. SOCIAL HISTORY: The patient lives at home with his . He denies any alcohol abuse or illicit drug abuse. He is an active smoker and he still smokes about half a pack per day. He is retired at this time. He used to work for the [employer] and he is retired from the [employer] as well and gives a history of exposure to asbestos. REVIEW OF SYSTEMS: CONSTITUTIONAL: Patient denies any fever and chills, but he does report some confusion. He denies any weight loss or weight gain. EYES: He denies any blurry vision or double vision. ENT: He denies any dysphagia or odynophagia, but he does report hearing difficulties and using hearing aid. CARDIOVASCULAR: He denies any chest pain, palpitations or orthopnea. RESPIRATORY: Patient reports a history of COPD, history of asbestos exposure, and he did report some cough and wheezing. GASTROINTESTINAL (GI): Patient is nauseated. He did complain of abdominal pain and constipation. GENITOURINARY (): Patient reported inability to urinate and right now he has a Henry catheter. MUSCULOSKELETAL: He denies any muscle aches and pains. NEUROLOGICAL: He gives a history of TIA in the past, but he denies any muscle weakness. SKIN: He denies any rashes or ulcers. PSYCH: Denies any history of depression or anxiety. HEMATOLOGICAL/ONCOLOGIC: He reports a history of anemia secondary to chronic kidney disease, but he denies any history of cancers. All other review of systems is negative. PHYSICAL EXAMINATION: GENERAL: Patient is awake, alert and oriented times two, laying in bed in no apparent distress. CURRENT VITAL SIGNS: Temperature is 96.9 degrees Fahrenheit, T-max is 100.7 degrees Fahrenheit, blood pressure is 140/67, pulse is 65, respiratory rate of 18, saturating 96% on room air. INTAKE AND OUTPUT: Urine output is 500 mL so far since overnight. HEAD/NECK EXAM: Extraocular muscles intact. Pupils equally round and reactive to light. Mucous membranes are moist. Patient is wearing hearing aids in both ears. Neck is supple. There is no jugular venous distention (JVD). CARDIOVASCULAR: S1 and S2, regular rate. No murmur, rub or gallop. RESPIRATORY: Decreased breath sounds at the bases and mild expiratory rhonchi bilaterally over the lungs. ABDOMEN: Soft. Positive bowel sounds. Nontender. No ascites. Patient has a Henry catheter at this time with some urine in the bad and some blood tinged debris was found in the tube as well. EXTREMITIES: No clubbing or cyanosis. Pulses are 2+. METERMAN: No focal neurological deficit. Power is 5/5 in all extremities. SKIN: No rashes or ulcers. PSYCH: Normal mood and affect. LYMPH NODES: No significant cervical, axillary, or inguinal lymphadenopathy. LABORATORY REVIEW: CBC showed WBC of 8.6, hemoglobin is 10, platelets are 202. Urinalysis showed it was hazy with 3+ blood. Urine osmolarity was 371. Random creatinine was 85. Random sodium was 63. BMP showed sodium 138, potassium 5.5, chloride 110, bicarb 18, BUN 63, creatinine 6.3, GFR is 9. Calcium is 7.6. Magnesium is 2.1, albumin is 2.7. Microbiology: Blood culture and urine culture are pending. IMAGING: A CAT scan of the abdomen and pelvis done last night showed a moderate amount of free fluid in the retroperitoneal space on the left side with associated free air densities. Low position of the left double J catheter with its upper lobe in the level of the proximal ureter. Unchanged left nonobstructing kidney stone. Distended bladder and constipation. CURRENT INPATIENT MEDICATIONS: Include: - calcium gluconate 1 gram IV - meropenem 500 mg IV every 12 hours - I stopped his IV normal saline. The patient has been started on D5W plus 100 mEq of bicarb at 60 mL per hour. - Tylenol as needed - albuterol as needed for congestion. I started the patient on DuoNebs 3 mL nebulization every 6 hours. - amlodipine 5 mg by mouth daily - Colace 100 mg by mouth daily - iron tablet 325 mg by mouth daily - gabapentin 100 mg by mouth daily - oxycodone one tablet every 6 hours as needed for pain - Protonix 40 mg by mouth daily - simvastatin 20 mg by mouth daily - Kayexalate 15 gram by mouth one dose was given - Flomax 0.4 mg by mouth daily ASSESSMENT: 85-year-old male with past medical history of chronic kidney disease stage IV with left sided kidney stone, recently status post cystoscopy and ureteroscopy on April 21, 2016, admitted at this time because of acute kidney injury superimposed on chronic kidney disease stage IV secondary to urinary obstruction. PLAN: 1. Acute kidney injury superimposed on chronic kidney disease stage IV. It is secondary to urinary obstruction. The patient got a Henry catheter overnight. He is making urine at this time. His baseline creatinine is 3.2. Continue to monitor for improvement in the kidney function. There is no urgent need to do hemodialysis at this time. I have changed the IV fluid to D5W plus 100 mEq of bicarb. Continue to monitor intake and output. 2. Urinary retention. It is secondary to a combination of oxybutynin and opioid pain medications. Continue Henry catheter at this time. Continue Flomax. The rest of the management is as per urology. 3. Left sided retroperitoneal fluid and air. Patient recently got the instrumentation done two days ago. He is already on IV antibiotics. Patient needs to be evaluated by urology and rest of the management is as per urology service. 4. Hyperkalemia. Hyperkalemia is expected to improve with improving renal function and urine output. Primary team has already given the patient a dose of Kayexalate 15 grams by mouth times one dose. Continue to monitor for now. 5. Metabolic acidosis. It is secondary to acute kidney injury superimposed on chronic kidney disease. I have changed to IV fluid to bicarb containing IV fluids. Bicarb is expected to improve after improvement in the renal function and with the IV bicarb. 6. COPD. Patient was having wheezing and rhonchi on clinical exam. I have started the patient on DuoNeb nebulization every 6 hours for the next 24 hours. 7. Hypertension. Blood pressure is acceptable at his time. Continue current dose of amlodipine 5 mg by mouth daily. 8. Hypocalcemia. The patient's corrected calcium is 8.6. I have given the patient one dose of IV calcium gluconate 1 gram. Check ionized calcium in the morning. 9. Chronic kidney disease, mineral bone disease. I have ordered a phosphorous level. If phosphorous is high, the patient will be started on phos binders. 10. Secondary hyperparathyroidism. The patient has a history of CKD IV and risk of secondary hyperparathyroidism. If PTH is high the patient will be started on calcitriol. 11. Constipation. Secondary to opioid pain medications. I have stopped the opioids and started the patient on Colace, which was already started by the primary team and I will given him a dose of lactulose as needed for constipation. The plan of care was discussed with the hospitalist team, Dr. Garcia. Thank you for involving us in the care of this patient. We shall be happy to follow the patient along with you tomorrow morning. MATILDED
--- NOTE | 2016-04-24 14:17 | REP ---
Portable chest x-ray: Single view. History: Preoperative. Comparison chest x-ray April 18, 2016. Findings: Thoracic aorta is somewhat tortuous. Heart is not enlarged. The lungs are symmetrically aerated and clear. EKG electrode is seen. Pulmonary vasculature is not increased. Impression: No active disease. Signed by Sheng Harry MD 04/24/2016 05:11 P
--- NOTE | 2016-04-24 14:20 | CR ---
DATE OF CONSULTATION: 04/24/2016 This 85-year-old male was evaluated in consultation as requested by Dr. Pérez on 04/24/2016, for acute renal failure. He presented to the hospital following left ureteroscopy, balloon dilation of ureter, and double J stent insertion (04/21/2016). 48 hours post procedure, he had difficulty voiding and mental status changes. Following presentation to the emergency department at [facility], Henry catheter insertion was performed, draining greater than one liter of clear urine. Immediate relief was experienced by the patient. Stone removal was not performed (04/21/2016) secondary to severe ureteral stricture. Past medical history is significant for hypertension, aortic valve stenosis, chronic renal failure (baseline creatinine 3.0), chronic obstructive pulmonary disease, aortic valve sclerosis, gastroesophageal reflux disease, tonsillectomy, peripheral vascular disease, cerebrovascular accident, bilateral cataracts, and laparoscopic cholecystectomy. REVIEW OF SYSTEMS: Negative for diabetes, thyroid pathology, headaches, epilepsy , glaucoma, blood-borne diseases. CURRENT MEDICATIONS: Include Plavix, Protonix, Norvasc, Neurontin, Zocor, and albuterol. He is allergic to PENICILLIN. Socially, he is and has two children. He is a 32 pack-year smoker who consumes alcohol occasionally. Family history is significant for coronary artery disease on both maternal and paternal sides. GENERAL EXAMINATION: Revealed a comfortable individual. His heart rate was 65, respiratory rate 18, blood pressure was 140/67, and temperature was 96.9 degrees Fahrenheit. Palpation of head and neck failed to reveal apparent lymphadenopathy. Sub auscultation of the chest was clear. Normal heart sounds. Examination of the back and abdomen were benign. Clear Henry catheter was noted. Urinalysis (04/24/2016) demonstrated 3+ microhematuria with a pH of 5.0. Nitrites and leukocytes were negative. Urine and blood cultures (04/24/2016) are pending at the time of this dictation. Serum hematologic and biochemical indices determination (04/24/2016) demonstrated a hemoglobin of 10.0, leukocyte count of 8.6, creatinine of 6.3 (increased), and potassium of 5.5. Computer sonography of the abdomen and pelvis without intravenous contrast (04/24/2016) demonstrated left kidney 8 mm nonobstructing calculus, distal migration of the left double J stent, significant amount of stool, air in the left collecting system (likely secondary to instrumentation) and left retroperitoneal free fluid. No right hydroureteronephrosis was noted. ASSESSMENT: 1. [id number] renal failure. 2. Acute urinary retention. 3. Left kidney calculus. 4. Left distal migration of double J stent. 5. Constipation. 6. Mental status changes. 7. Hypertension. 8. Aortic valve stenosis. 9. Lpfax-yz-lbyzdty renal failure. 10. Chronic obstructive pulmonary disease. 11. History of cerebrovascular accident on Plavix. 12. Peripheral vascular disease. 13. Gastroesophageal reflux disease. PLAN: The above findings were discussed with the hospitalist and emergentologist. Following nothing by mouth status, cystoscopy, left retrograde uropyelography and double J stent change will be performed. Informed consent with the patient's spouse and daughter (medical [id number]) were obtained. Discontinuation of Plavix and heparin are appropriate. The patient was nothing by mouth at 08:15 hours. Perioperative intravenous gentamicin (80 mg) and vancomycin (250 mg) will be provided for subacute bacterial endocarditis (SBE) prophylaxis pending nephrologic approval. Should you require additional information, please do not hesitate to contact me. Thanking you for the confidence of your referral. RAMÍREZ
[2016-04-24] MEDS ORDERED: CONRAY-60 60% 50ML VIAL (Q9961) As Ordered ONE (15:48)
[2016-04-24] MEDS ORDERED: MIDAZOLAM INJ 2 MG/2 ML VIAL (J2250) As Ordered ONE (15:49)
[2016-04-24] MEDS ORDERED: fentaNYL 100 MCG/2 ML INJECTION (J3010) As Ordered ONE ×2 (15:50→17:30)
[2016-04-24] MEDS ORDERED: GENTAMICIN SULF INJ 80MG/2ML VIAL (J1580) As Ordered ONE (16:11)
[2016-04-24] MEDS ORDERED: LIDOCAINE 2% 5ML JELLY UROJET As Ordered ONE (16:37)
[2016-04-24] MEDS ORDERED: ONDANSETRON 4MG/2ML VIAL (J2405) As Ordered ONE (17:01)
[2016-04-24] MEDS: fentaNYL 100 MCG/2 ML INJECTION (J3010) IV PRN ×5 (17:34→18:37)
[2016-04-24] MEDS ORDERED: ONDANSETRON 4MG/2ML VIAL (J2405) IV PRN (17:45)
[2016-04-24 19:35] LABS: CALCIUM LEVEL 7.4 MG/DL (8.8-10.2); CREATININE FOR GFR 4.9 MG/DL (0.70-1.30); GLOMERULAR FILTRATION RATE 12.1 (>35)
[2016-04-24 19:37] LABS: POTASSIUM SERUM 5.3 MEQ/L (3.5-5.1)
--- NOTE | 2016-04-24 20:29 | ECGEPIP ---
Stationary ECG Study [facility] - ED Test Date: 2016-04-24 Pat Name: SUKHDEV HADDAD Department: Room: [place] [address] Gender: M Acrobatic Rigger: ToussaintB: [id number] Requested By: Ben Peralta Order Number: [id number] Reading MD: Isabel Gonzalez Measurements Intervals [place] Rate: 87 P: 62 WV: 157 QRS: 29 QRSD: 72 T: 50 QT: 308 QTc: 372 Interpretive Statements SINUS RHYTHM WITH OCCASIONAL SUPRAVENTRICULAR PREMATURE COMPLEXES NO PRIOR FOR COMPARISON Electronically Signed On 04-24-2016 20:29:01 EDT by Isabel Gonzalez
[2016-04-25] VITALS (13 sets, daily range): BP systolic 100–122; BP diastolic 46–59; O2SAT 91–100
--- NOTE | 2016-04-25 01:14 | IPN ---
DATE: 04/23/2016 Mr. Stanley is much less confused apparently than he was last night. Family at bedside. He is awake, appropriately interactive. Apparently, he is independent in his activities of daily living and snow blows at baseline. Temperature 96.9 was 100.7 at 6 a.m., pulse 65, respiratory rate 18, blood pressure 123/58, 96% on room air. Input and output notable for negative 500. He is awake, appropriate interactive, pleasantly conversant. Mucous membrane are moist. Neck is supple. Breathing is symmetrical, rested. Heart is in a regular rate and rhythm, distant sounding. Abdomen is soft, doughy, nontender. He has a Henry catheter in place. White cell count 8.6, hemoglobin 10, platelets 202, BUN 63, creatine 6.32 down from 6.92. Carbon dioxide 18. BUN 63, creatine 6.32. Blood and urine cultures are pending. My assessment is as follows: This is an 85-year-old with acute kidney injury and hyperkalemia in the setting of chronic kidney disease, stage IV based on an obstructive etiology. Plan is as follows: 1. Genitourinary (). I discussed this case in person with Dr. Hinkle from urology. Will defer to his suggestion regarding management of obstructing stone. He also had urinary retention, which has been relieved with a Henry catheter. 2. The patient has acute renal failure. This is related to obstructive etiology, which has been partially relieved. The patient follows with Dr. Ulloa as an outpatient. I have asked Dr. Crenshaw to see the patient in consultation related to his likely complicated hospital course. In the meantime, he has shown some improvement and he has been given Kayexalate. Will repeat basic metabolic panel (BMP) later today. May benefit from further Kayexalate depending on his renal function. 3. The patient has a history of chronic obstructive pulmonary disease (COPD), not on oxygen. No evidence of exacerbation. He is breathing easily. 4. The patient has hypertension, holding his ARB. 5. The patient has dyslipidemia. The patient has appropriate deep vein thrombosis (DVT) prophylaxis. 6. The patient follows with Dr. Jeronimo as an outpatient.
[2016-04-25] MEDS: IPRATROPIUM 0.5MG/ALBUTEROL 2.5MG INH SOL UD 3ML (DUONEB)(J7620) NEB SCH ×2 (04:46→07:56)
[2016-04-25] MEDS: MEROPENEM INJ 500 MG in D5W MINI-BAG PLUS 100 ML IV SCH ×2 (05:27→16:07)
--- NOTE | 2016-04-25 05:38 | RO ---
DATE OF PROCEDURE: 04/24/2016 PREOPERATIVE DIAGNOSES: 1. Acute on chronic renal failure. 2. Acute urinary retention. 3. Left lower pole 8 mm kidney calculus. 4. Question distal migration of left double J stent. POSTOPERATIVE DIAGNOSES: 1. Acute on chronic renal failure. 2. Acute urinary retention. 3. Left lower pole 8 mm kidney calculus. 4. Question distal migration of left double J stent. PROCEDURE: Cystoscopy, bilateral retrograde ureteropyelography, 6-[place] Cook double J stent change (left), fluoroscopy, 16-[place] Henry catheter insertion. SURGEON: Dr. Rigo Mckenzie SENIOR INVESTIGATOR: ANESTHESIA: Monitored anesthesia care (MAC). COMPLICATIONS: None. ESTIMATED BLOOD LOSS: Zero mL. DESCRIPTION OF PROCEDURE: In lithotomy position, the patient was prepped and draped in the usual fashion. Plain fluoroscopy of the upper urinary tract confirmed the presence of a left lower pole radiopaque 8 mm calculus. Distal migration of the left double J stent was in question. A 23-[place] rigid cystoscope was advanced into the urinary bladder under direct vision. A urine specimen for culture and sensitivity was obtained. Jane cystoscopy revealed normal ureteral orifices bilaterally and normal urothelium. Erythema was noted secondary to prior instrumentation. Moderate bladder trabeculation was noted. The previously placed left double J stent was traversing the bladder trigone, extending to the right side of the bladder, lateral to the right ureteric orifice. A bilo prostate was present. The urethra was normal. There was no evidence of urolithiasis or active bleeding. A 5-[place] open-ended ureteral catheter was used to intubate the right ureteric orifice. Retrograde ureteropyelography confirmed a normal caliber ureter and intrarenal collection system. There was no evidence of filling defects or hydroureteronephrosis. Using flexible graspers, the left double J stent was grasped and delivered to the urethral meatus. Under fluoroscopy, a 0.35 Glidewire was advanced up into the left collecting system. The double J stent was removed. A 5-[place] open-ended ureteral catheter was readily advanced up into the left renal pelvis. Retrograde ureteropyelography confirmed a normal caliber ureter with the absence of contrast extravasation. No filling defects were noted in the ureter. A 0.35 Glidewire was then readvanced up in the left renal pelvis under fluoroscopy. The 5-[place] open-ended ureteral catheter was removed and a 6-[place] double J stent was advanced under fluoroscopy in direct vision. Its position was confirmed within the renal pelvis in adequate position within the urinary bladder was confirmed by both direct vision and fluoroscopy (see photographs). The instruments were then removed and a 16-[place] Henry catheter was inserted and connected to straight drainage. A clear urine effluent was noted. At the conclusion of the procedure, sponge and instrument counts were correct. Estimated blood loss for the procedure was zero mL. In the recovery room, the patient was alert and stable. DISPOSITION: Serial complete blood count (CBC) and basic metabolic panel (BMP) determinations for creatinine ambrosio. Henry catheter to straight drainage. Hospitalist to resume preoperative orders.
[2016-04-25 05:53] LABS: BASO % 0.2 % (0.0-1.0); EOS # 0.1 K/mm3 (0.0-0.50); EOS % 2.1 % (0.0-3.0); LARGE UNSTAINED CELL # 0.2 K/mm3 (0.0-0.4); LARGE UNSTAINED CELL % 3.4 % (0.0-4.0); MEAN CORPUSCULAR HEMOGLOBIN 31.2 pg (27.0-33.0); MEAN CORPUSCULAR HGB CONC 32.6 g/dl (32.0-36.5); MEAN CORPUSCULAR VOLUME 95.8 fl (80.0-96.0); MONO # 0.3 K/mm3 (0.0-0.8); MONO % 6.1 % (0.0-5.0); NEUTROPHILS # 3.5 K/mm3 (1.8-7.7); NEUTROPHILS % 69.2 % (36.0-66.0); PLATELET COUNT, AUTOMATED 172 k/mm3 (150-450); RED CELL DISTRIBUTION WIDTH 13.1 % (11.5-14.5); WHITE BLOOD COUNT 5.1 K/mm3 (4.0-10.0)
[2016-04-25 06:05] LABS: ALBUMIN 2.4 GM/DL (3.2-5.2); ALBUMIN/GLOBULIN RATIO 0.89 (1.00-1.93); BILIRUBIN,TOTAL 0.6 MG/DL (0.2-1.0); CALCIUM LEVEL 7.8 MG/DL (8.8-10.2); CREATININE FOR GFR 4.24 MG/DL (0.70-1.30); GLOMERULAR FILTRATION RATE 14.3 (>35); POTASSIUM SERUM 4.4 MEQ/L (3.5-5.1); TOTAL PROTEIN 5.1 GM/DL (6.4-8.2)
[2016-04-25] MEDS: SODIUM BICARBONATE 100 MEQ in D5W 1,000 ML IV SCH (06:46)
--- NOTE | 2016-04-25 07:16 | REP ---
RETROGRADE PYELOGRAM: Nine views. HISTORY: Stent placement in the OR. 33 seconds of fluoroscopy time is reported. FINDINGS: A sequence of nine fluoroscopically obtained intraprocedural spot radiographs document bilateral ureteral cannulation and contrast injection and double pigtail left ureteral stenting. Signed by Sheng Harry MD 04/25/2016 11:40 A
[2016-04-25] MEDS: GABAPENTIN 100 MG CAP PO SCH (08:40)
[2016-04-25] MEDS: DOCUSATE SODIUM 100 MG CAP PO SCH (08:40)
[2016-04-25] MEDS: TAMSULOSIN 0.4 MG CAP PO SCH (08:40)
[2016-04-25] MEDS: FERROUS SULFATE 325MG TAB PO SCH (08:40)
[2016-04-25] MEDS: SIMVASTATIN 20 MG TAB PO SCH (08:41)
[2016-04-25] MEDS: amLODIPine 5 MG TAB PO SCH (08:41)
[2016-04-25] MEDS: PANTOPRAZOLE 40MG TAB (PROTONIX) PO SCH (08:41)
[2016-04-25] MEDS ORDERED: IRON SUCROSE 100 MG/5 ML INJ (J1756) IV ONE (09:00)
[2016-04-25] MEDS ORDERED: IRON SUCROSE 25 MG in NS 50 ML IV ONE (10:00)
[2016-04-25] MEDS: ACETAMINOPHEN TAB 650MG DOSE (2X325MG) PO PRN (11:06)
[2016-04-25] MEDS ORDERED: IRON SUCROSE 475 MG in NS 250 ML IV ONE (11:15)
--- NOTE | 2016-04-25 14:37 | IPN ---
DATE: 04/25/2016 SUBJECTIVE: This is an 85-year-old male who was seen and examined at the bedside. Yesterday underwent cystoscopy with a ureteral stent placement under MAC anesthesia without complications. His diet was advanced to regular. We also ordered Lactulose to help with constipation. He was apparently also confused and required a sitter. Otherwise, he feels well this morning, has been eating breakfast and tolerated that well. No longer has abdominal pain and has been making good urine after the procedure. REVIEW OF SYSTEMS: Denies any chest pain, shortness of breath, nausea, vomiting, fevers, chills, headaches, lightheadedness, dizziness. He is anxious to get out of bed. Still reports chronic constipation. Per family, they have noticed that he has been coughing more with foods and taking medications. OBJECTIVE: VITAL SIGNS: Blood pressure 109/55, heart rate 66, temperature 98.6, respiration rate 20, pulse oximetry 92% on room air. Intake and output is 2215 and 2750, net negative 535. Weight is 59.1 kg. PHYSICAL EXAMINATION: GENERAL: The patient is lying in bed, comfortable. No acute distress. He is alert, awake, oriented times three, pleasant, cooperative. Family at bedside. EYES: Extraocular movements intact. Pupils are equal and reactive to light. HENT: Moist oral mucosa. Upper dentures in place. Lower portion edentulous. NECK: Supple. Trachea midline. No jugular venous distention (JVD). HEART: Regular rate and rhythm with normal S1, S2. LUNGS: Breath sounds diminished bilaterally without appreciable wheezing. ABDOMEN: Soft. Nontender. Nondistended. Bowel sounds present. No guarding. No rebound. No peritoneal signs. GENITOURINARY: Has an indwelling Henry with dark, tea-colored urine. EXTREMITIES: No clubbing or cyanosis. Pedal pulses are present in bilateral lower extremities. No pedal edema. NEUROLOGIC: Strength is 5/5. No gross focal deficits appreciated. SKIN: No obvious lesions appreciated. PSYCHIATRIC: Normal affect. MEDICATIONS: No medication changes have been made since our last visit. LABORATORY DATA: Platelets 172, sodium 140, potassium 4.4, chloride 110, carbon dioxide 21, BUN 53, creatinine 4.24, improved from yesterday 4.9, glucose 82, calcium is 7.8, ionized calcium 4.5, magnesium 2.0, total bilirubin 0.6, AST and ALT normal, alkaline phosphatase 155, total protein 5.1, albumin 2.4. Intact PTH pending. Blood cultures negative after [address] of the abdomen and pelvis reports moderate amount of free fluid in the retroperitoneal space on the left side, associated free air, position of left JJ stent with upper at the level of the proximal ureter, unchanged left renal obstructing stone, distended bladder, constipation, gastroparesis. Chest x-ray with no active disease. IMPRESSION: Mr. Stanley is a pleasant 85-year-old male with a past medical history of chronic kidney disease stage IV with left sided hydronephrosis, recently underwent cystoscopy and urethroscopy. Again, admitted this time for urinary obstruction. He is status post stent placement. PLAN: 1. Acute kidney injury superimposed on chronic kidney disease stage IV. Renal failure is likely secondary to urinary obstruction. He is status post stent placement. His renal function appears to be improving today. His baseline creatinine is 3.2. At this time, with his improved renal function, he does not require emergent hemodialysis. Continue to monitor intake and output closely. 2. Urinary retention, Recommend continue Henry catheter for now. He is on Flomax 0.4 mg daily. 3. Iron deficiency anemia. The patient will be started on Venofer for one dose today. Recommend continue iron supplementation as well. 4. Hyperkalemia. Secondary to renal failure. He is status post Kayexalate. Level has normalized. 5. Left sided retroperitoneal fluid and air. He is status post stent placement and is currently being followed by urology. 6. Metabolic acidosis. Secondary to acute kidney injury on chronic kidney disease. Recommend continuing bicarbonate drip until tonight for a total of 2 liters. His acidosis is improved today compared to yesterday. 7. Hypocalcemia. Ionized calcium is normal. He is status post calcium gluconate times one. No further intervention is needed at this time. 8. Chronic kidney disease, minimal bone disease. Phosphate level was normal yesterday. No need for phosphate binders at this time. Will recheck level tomorrow. 9. Secondary hypoparathyroidism. PTH level is pending at this time. If elevated, he might benefit from Calcitriol. 10. Constipation. Secondary to narcotic use and iron supplementation. We have requested staff to give him lactulose as needed with first dose today. He is also on Colace 100 mg by mouth daily. 11. Hypertension. He does have Norvasc with hold parameters. 12. Difficulty with swallowing pills. Have ordered speech and swallow evaluation. 13. Deconditioned and weakness. The patient will also be evaluated by Physical therapy. Case discussed with family and Dr. Garcia. My preceptor for this patient encounter was Dr. Crenshaw. The preceptor was physically present in the building during the encounter and was fully available. As needed, all aspects of the patient interview, examination, medical decision making process, and medical care plan development were reviewed and approved by the preceptor. The preceptor is aware and concurs with the plan as stated in the body of this note and will attest to such by his/her cosignature. RAMÍREZ
[2016-04-25] MEDS ORDERED: BISACODYL 5 MG TAB PO ONE (17:45)
--- NOTE | 2016-04-25 19:43 | IPNPDOC ---
Text Note Date of Service The patient was seen on 04/25/16. NOTE Subjective: 85-year-old male seen and examined at bedside. He admitted to a sore throat. Otherwise, he denied fevers, chills, chest pain, shortness of breath, nausea, vomiting, diarrhea, constipation, abdominal pain, rashes or lesions anywhere, edema, pain anywhere else. He stated that he has not eaten in 5 days, but was happy to have his cup of coffee. Nursing reports that patient is having difficulty swallowing liquids and patient's also admits to this too. Nursing also reports the patient gets very confused at times and needs to have a sitter. Objective: Vitals: T: 100, BP: 101/65 , RR: 18, P: 83, O2 Saturation: 97% on 2 L nasal cannula General: Pleasant and cooperative elderly thin male in no acute distress. Lying at the head of his bed. Awake, alert, oriented 3. HEENT: Head: normocephalic, atraumatic. Eyes: sclera are nonicteric. Nose: No external lesions Neck: No thyromegaly. Respiratory: clear to auscultation bilaterally with no wheezes, rales, or rhonchi. Cardiovascular: regular rate and rhythm, with no murmurs, rubs or gallops. Abdomen: soft, nondistended, no hepatosplenomegaly appreciated. +Tenderness to palpation on his LLQ. Bowel sounds present. Extremities: no swelling in either lower extremity bilaterally] Neurological: No focal neurologic deficits appreciated bilaterally. Lymphatics: No cervical LAD bilaterally. Integumentary: skin free from rashes, lesions, abrasions Vascular: [+2 radial and dorsalis pedis pulses palpable bilaterally. Laboratory data: Please see below. Hemoglobin 9.5 and hematocrit 29. MCV: 95.8 Potassium: 4.4 BUN: 53 from 58 yesterday. Creatinine: 4.24 from 4.90 yesterday. Fasting glucose: 8283 yesterday. Calcium: 7.8 Whole Blood ionized Calcium: 4.5 Magnesium: 2 Alkaline phosphatase: 155:48 yesterday. Total protein: 5.1 5.6 yesterday. Abdomen: 2.4 from 2.7 yesterday. Parathyroid hormone intact pending. Calculated FeNa from urine/serum Na and Cr: 2.6% consistent with possible intrinsic etiology for kidney function: ATN, AIN, Glomerulonephritis. Although, post-obstructive etiology most likely. Microbiology: Urine cultures pending. Blood cultures show no growth to date 24 hours. Imaging: No new imaging today. Assessment: This is an 85-year-old male with a past medical history significant for CKD Stage IV, COPD not on home oxygen, hypertension, hyperlipidemia, left- sided nephrolithiasis, history of TIA, who initially presented for abdominal pain and inability to urinate. Is admitted for VIKASH and CKD stage IV secondary to urinary obstruction. Patient is recently status post cystoscopy and ureteroscopy on April 21, 2016. And now, patient is status-post cystoscopy, bilateral retrograde ureteral pyelography with placement of ureteral J-tube on April 24, 2016. Plan: #1. Acute kidney injury in setting of CKD stage IV secondary to urinary obstruction: On 04/24/2016, patient had cystoscopy and bilateral retrograde ureteropyelography. Fluoroscopy of the upper urinary tract confirmed the presence of a left lower pole radiopaque 8mm calculus. There is no evidence of urolithiasis or active bleeding. Retrograde ureteropyelogram confirmed a normal caliber ureter and intrarenal collection system. There was no evidence of filling defects or hydroureteronephrosis. Patient's BUN was 53 and creatinine was 4.24 today down from 58 and 4.90 yesterday. GFR was 14.3 up from 12.1 yesterday. Continue monitoring I's and O's. Patient has a Henry catheter at this time. He is producing urine which is logan colored. His baseline creatinine is 3.2. On meropenem 500 mg every 12 hours IV. Blood cultures show no growth to date 24 hours and urine cultures are pending. In addition, patient has been febrile. He is on acetaminophen 650 mg every 4 hours when necessary pain/fever. Follow nephrology and urology recommendations. Nephrology is starting iron sucrose and continuing bicarbonate drip with last dose tonight for metabolic acidosis. Appreciate input. Continue to monitor daily CBCs, BMPs. #2 Urinary retention: Relieved by Henry catheter. #3 Hyperkalemia: Potassium was 4.4 and within normal limits today. #4 Dysphagia to Liquids/Solids: Have ordered Speech and Swallow Therapy Evaluation. Follow-up. #5 Hypertension: Stable at 101/65. On amlodipine 5 mg. Holding patient's ARB. #6 History of COPD: Satting in the 90s on room air now with no difficulty in breathing. Continue Proventil every 4 hours when necessary shortness of breath. #7. Dyslipidemia: Continue simvastatin. #8. TIA: Have held aspirin. #9. Hypocalcemia: Patient's whole blood ionized calcium was 4.5 and within normal limits. #10 Constipation: Continue colace and lactulose. DVT ppx: Heparin discontinued at this time. GI ppx: continue protonix. Physical Therapy has been ordered. My preceptor for this patient encounter was Dr. Jeff Garcia, and was physically present in the building during the encounter and was fully available. As needed , all aspects of the patient interview, examination, medical decision making process, and medical care plan development were reviewed and approved by the preceptor. Preceptor is aware and concurs with the plan as stated in the body of this note and will attest to such by his/her cosignature VS,Guevara, I+O VS, Guevara, I+O Laboratory Tests 04/24/16 19:06 Calcium Level 7.4 L 04/25/16 05:27 Calcium Level 7.8 L, Aspartate Amino Transf (AST/SGOT) 13 L, Alanine Aminotransferase (ALT/SGPT) 14, Alkaline Phosphatase 155 H, Total Bilirubin 0.6 , Total Protein 5.1 L, Albumin 2.4 L, Red Blood Count 3.03 L, Mean Corpuscular Volume 95.8, Mean Corpuscular Hemoglobin 31.2, Mean Corpuscular Hemoglobin Concent 32.6, Red Cell Distribution Width 13.1, Neutrophils (%) (Auto) 69.2 H, Lymphocytes (%) (Auto) 19.0 L, Monocytes (%) (Auto) 6.1 H, Eosinophils (%) (Auto ) 2.1, Basophils (%) (Auto) 0.2, Neutrophils # (Auto) 3.5, Lymphocytes # (Auto) 1.0 L, Monocytes # (Auto) 0.3, Eosinophils # (Auto) 0.1, Basophils # (Auto) 0.0 Vital Signs Date Time Temp Pulse Resp B/P Pulse Ox O2 Delivery O2 Flow Rate FiO2 04/25/16 16:00 96.8 69 20 100/46 94 Room Air 04/25/16 05:04 2.0 I&O- Last 24 Hours up to 6 AM 04/25/16 06:00 Intake Total 2675 ml Output Total 2550 ml Balance 125 ml JERALD CRAVEN OGME-1 Apr 25, 2016 19:42
[2016-04-26] VITALS: BP 110/54
[2016-04-26 04:00] VITALS: BP 112/56
[2016-04-26] MEDS: MEROPENEM INJ 500 MG in D5W MINI-BAG PLUS 100 ML IV SCH ×2 (04:25→16:40)
[2016-04-26 05:53] LABS: BASO % 0.1 % (0.0-1.0); EOS # 0.3 K/mm3 (0.0-0.50); EOS % 4.2 % (0.0-3.0); LARGE UNSTAINED CELL # 0.2 K/mm3 (0.0-0.4); LYMPH # 0.9 K/mm3 (1.5-4.5); LYMPH % 11.3 % (24.0-44.0); MEAN CORPUSCULAR HEMOGLOBIN 31.9 pg (27.0-33.0); MEAN CORPUSCULAR HGB CONC 33.3 g/dl (32.0-36.5); MEAN CORPUSCULAR VOLUME 95.8 fl (80.0-96.0); MONO # 0.5 K/mm3 (0.0-0.8); MONO % 7.6 % (0.0-5.0); NEUTROPHILS # 4.8 K/mm3 (1.8-7.7); NEUTROPHILS % 73.7 % (36.0-66.0); PLATELET COUNT, AUTOMATED 197 k/mm3 (150-450); RED CELL DISTRIBUTION WIDTH 13.2 % (11.5-14.5); WHITE BLOOD COUNT 6.6 K/mm3 (4.0-10.0)
[2016-04-26 06:06] LABS: ALBUMIN 2.3 GM/DL (3.2-5.2); ALBUMIN/GLOBULIN RATIO 0.85 (1.00-1.93); BILIRUBIN,TOTAL 0.5 MG/DL (0.2-1.0); CALCIUM LEVEL 7.9 MG/DL (8.8-10.2); CREATININE FOR GFR 3.42 MG/DL (0.70-1.30); GLOMERULAR FILTRATION RATE 18.3 (>35); PHOSPHORUS LEVEL 3.7 MG/DL (2.5-4.9); POTASSIUM SERUM 4.5 MEQ/L (3.5-5.1)
[2016-04-26 07:30] VITALS: BP 144/65
[2016-04-26] MEDS: FERROUS SULFATE 325MG TAB PO SCH (08:36)
[2016-04-26] MEDS: DOCUSATE SODIUM 100 MG CAP PO SCH (08:36)
[2016-04-26] MEDS: GABAPENTIN 100 MG CAP PO SCH (08:37)
[2016-04-26] MEDS: TAMSULOSIN 0.4 MG CAP PO SCH (08:37)
[2016-04-26] MEDS: PANTOPRAZOLE 40MG TAB (PROTONIX) PO SCH (08:37)
[2016-04-26] MEDS: SIMVASTATIN 20 MG TAB PO SCH (08:37)
[2016-04-26] MEDS: amLODIPine 5 MG TAB PO SCH (08:37)
--- NOTE | 2016-04-26 10:08 | REP ---
TWO-VIEW CHEST: Two views of the chest are performed and compared to prior studies, the most recent of which is 04/24/2016. There are small bilateral pleural effusions. The heart is not significantly enlarged. There is tortuosity of the thoracic aorta. The mediastinal silhouette is unchanged. There are calcified pleural plaques again seen inferiorly. There is probably minor bibasilar atelectatic change. IMPRESSION: Small effusions and minor bibasilar atelectasis. Signed by Drew Fry MD 04/26/2016 03:29 P
[2016-04-26 12:00] VITALS: BP 128/58
--- NOTE | 2016-04-26 13:05 | IPNPDOC ---
Assessment/Plan Date Seen The patient was seen on 04/26/16. Patient Summary This is an 85 y/o M who is POD5 s/p cysto, left ureteroscopy w/ balloon dilation of a ureteral stricture, and left ureteral stent placement, and POD2 s/ p left ureteral stent exchange, admitted to the hospital for VIKASH, likely due to urinary retention. His Cr has been trending down since catheter placement, now 3.4 (w/ Cr 3.2 prior to surgery). He has no pain. He is a little weak, but feels well. Plan/VTE VTE Prophylaxis Ordered?: Yes VTE Exclusion Mechanical Proph: N/A:VTE Prophy Ordered Plan/Urinary Catheter Reason for insertion/continuin: Acute obstruct/retention Plan - keep catheter in place b/c of postop urinary retention - continue flomax - when patient is discharged he should be sent home w/ the catheter in place - he is scheduled to f/u w/ me on 05/02/16 - we will set him up for his next surgery at that time and do a voiding trial Subjective Review oF Systems Chief Complaint The patient is a 85-year-old male admitted with a reason for visit of Acute Renal Failure Superimposed On Stage 4 Chron. Events since Last Encounter No acute events o/n. Patient denies pain. He has had a few low grade fevers. Notes the catheter has been draining well w/o any issues. Objective Physical Examination General Exam: : Alert: Cooperative: No Acute Distress ENT EXAM: : Atraumatic Skin Exam: : Nl turgor and temperature Psych Exam: : Mental status NL: Mood NL Other physical findings catheter in place, draining clear urine Vital Signs/I&O Vital Signs Date Time Temp Pulse Resp B/P Pulse Ox O2 Delivery O2 Flow Rate FiO2 04/26/16 07:30 99.8 83 20 144/65 92 Room Air 04/25/16 05:04 2.0 I&O- Last 24 Hours up to 6 AM 04/26/16 06:00 Intake Total 3220.00 ml Output Total 1200 ml Balance 2020.00 ml Laboratory Data Labs 24H Laboratory Tests 2 04/26/16 05:14: Blood Urea Nitrogen 49H, Creatinine 3.42H, Sodium Level 138, Potassium Level 4.5 , Chloride Level 106, Carbon Dioxide Level 24, Calcium Level 7.9L, Phosphorus Level 3.7, Aspartate Amino Transf (AST/SGOT) 15, Alanine Aminotransferase (ALT/ SGPT) 15, Alkaline Phosphatase 166H, Total Bilirubin 0.5, Total Protein 5.0L, Albumin 2.3L, Albumin/Globulin Ratio 0.85L, Anion Gap 8, White Blood Count 6.6, Red Blood Count 2.85L, Hemoglobin 9.1L, Hematocrit 27.3L, Mean Corpuscular Volume 95.8, Mean Corpuscular Hemoglobin 31.9, Mean Corpuscular Hemoglobin Concent 33.3, Red Cell Distribution Width 13.2, Platelet Count 197, Neutrophils (%) (Auto) 73.7H, Lymphocytes (%) (Auto) 11.3L, Monocytes (%) (Auto) 7.6H, Eosinophils (%) (Auto) 4.2H, Basophils (%) (Auto) 0.1, Neutrophils # (Auto) 4.8 , Lymphocytes # (Auto) 0.9L, Monocytes # (Auto) 0.5, Eosinophils # (Auto) 0.3, Basophils # (Auto) 0.0, Glomerular Filtration Rate 18.3L, Large Unclassified Cells # 0.2, Large Unclassified Cells % 3.0, Magnesium Level 2.0 CBC/BMP Laboratory Tests 04/26/16 05:14 Calcium Level 7.9 L, Phosphorus Level 3.7, Aspartate Amino Transf (AST/SGOT) 15 , Alanine Aminotransferase (ALT/SGPT) 15, Alkaline Phosphatase 166 H, Total Bilirubin 0.5, Total Protein 5.0 L, Albumin 2.3 L, Red Blood Count 2.85 L, Mean Corpuscular Volume 95.8, Mean Corpuscular Hemoglobin 31.9, Mean Corpuscular Hemoglobin Concent 33.3, Red Cell Distribution Width 13.2, Neutrophils (%) (Auto ) 73.7 H, Lymphocytes (%) (Auto) 11.3 L, Monocytes (%) (Auto) 7.6 H, Eosinophils (%) (Auto) 4.2 H, Basophils (%) (Auto) 0.1, Neutrophils # (Auto) 4.8 , Lymphocytes # (Auto) 0.9 L, Monocytes # (Auto) 0.5, Eosinophils # (Auto) 0.3, Basophils # (Auto) 0.0 Microbiology Microbiology 04/26/16 Blood Culture, Received Pending 04/26/16 Blood Culture, Received Pending 04/24/16 Blood Culture - Preliminary, Resulted No Growth after 48 hours. All Specime... 04/24/16 Blood Culture - Preliminary, Resulted No Growth after 48 hours. All Specime... 04/24/16 Urine Culture - Final, Complete 04/24/16 Urine Culture - Final, Complete TY VELASCO MD Apr 26, 2016 13:05
--- NOTE | 2016-04-26 14:00 | IPN ---
DATE: 04/26/2016 SUBJECTIVE: Patient was seen and examined at the bedside in the morning. Patient is feeling much better today. He is sitting on the sofa. He has a good urine output. His kidney function is improving close to his baseline. REVIEW OF SYSTEMS: Patient denies any chills, rigors. He had a fever this morning with a T-max of 100.8 degrees Fahrenheit. He denies any chest pain or shortness of breath but he does report some cough and bringing up some phlegm. Patient denies any nausea, vomiting, diarrhea, pain in abdomen but he does report that his back is mildly sore. The rest of the review of system is negative. OBJECTIVE: Vital signs: T-current is 99.8 degrees Fahrenheit, T-max is 100.8 degrees Fahrenheit, blood pressure is 144/65, pulse is 83, respiratory rate of 18, saturating 92% on room air. Intake and output: Urine output recorded as 1.5 liter yesterday, 575 mL so far today since overnight. Weight on the bed scale is 64.1 kg. PHYSICAL EXAMINATION: General: Patient is awake, alert, oriented times three. Sitting on the sofa. No apparent distress. Head and neck exam: Extraocular muscles intact. Pupils equally round and reactive to light. Mucous membranes are moist. Neck is supple. There is no jugular venous distention (JVD). Cardiovascular: S1, S2. Patient has a grade 3/6 systolic ejection murmur. Otherwise, regular rate. Respiratory: Patient has mild crepitations on the left base on deep inspiration and he has a mild expiratory rhonchi on the bases bilaterally. Abdomen: Soft, positive bowel sounds. Nontender. No ascites. No organomegaly. Extremities: No clubbing or cyanosis. Pulses are 2+. Central nervous system: No focal neurological deficit. Power is 5/5 in all extremities. Psych: Normal mood and affect. Skin: No rashes or ulcers. LAB REVIEW: CBC showed WBC 6.6, hemoglobin 9.1, platelets 197. BMP showed sodium 138, potassium 4.5, chloride 106, bicarbonate 24, BUN 49, creatinine 3.4. Calcium is 7.9. Albumin is 2.3. Microbiology: Urine culture is negative so far. Blood cultures are negative so far. Imaging: Chest x-ray done today morning showed small effusions and minor bibasilar atelectasis. CURRENT MEDICATIONS: Patient's medications are all reviewed by me. He continues to be on IV meropenem. He got a dose of Venofer IV yesterday. There is no other change in the medications today as compared with yesterday. ASSESSMENT: Mr. Stanley is an 85-year-old male with past medical history of chronic kidney disease stage IV with left sided hydronephrosis secondary to kidney stone. Patient recently underwent cystoscopy and ureteroscopy on 04/21/2016, admitted this time to the hospital with acute kidney injury superimposed on chronic kidney disease stage IV secondary to urinary obstruction. PLAN: 1. Acute kidney injury superimposed on chronic kidney disease stage IV. Patient's best baseline creatinine is around 3.2. His creatinine has improved to 3.4 today. Continue the Henry catheter at this time. If IV fluids were stopped last night, continue to encourage oral hydration. 2. Urinary retention. Continue the Henry for now. Continue Flomax 0.4 mg by mouth daily. 3. Iron deficiency anemia. Patient is status post Venofer 500 mg IV times one dose yesterday. Hemoglobin is 9.1 at this time. Continue to monitor for improvement. If hemoglobin does not improve to more than 10, then he will be given a dose of Aranesp. 4. Metabolic acidosis. Patient was given IV bicarbonate with IV fluids. His bicarbonate level has improved to 24. No further need of bicarbonate administration at this time. 5. Hypertension. Blood pressure is acceptable at this time. Continue current dose of amlodipine 5 mg by mouth daily.
[2016-04-26 15:16] LABS: BASO % 0.1 % (0.0-1.0); EOS # 0.3 K/mm3 (0.0-0.50); EOS % 4.4 % (0.0-3.0); LARGE UNSTAINED CELL # 0.3 K/mm3 (0.0-0.4); LARGE UNSTAINED CELL % 3.9 % (0.0-4.0); LYMPH # 0.7 K/mm3 (1.5-4.5); LYMPH % 9.8 % (24.0-44.0); MEAN CORPUSCULAR HEMOGLOBIN 31.1 pg (27.0-33.0); MEAN CORPUSCULAR HGB CONC 32.6 g/dl (32.0-36.5); MEAN CORPUSCULAR VOLUME 95.3 fl (80.0-96.0); MONO # 0.5 K/mm3 (0.0-0.8); MONO % 6.4 % (0.0-5.0); NEUTROPHILS # 5.5 K/mm3 (1.8-7.7); NEUTROPHILS % 75.4 % (36.0-66.0); PLATELET COUNT, AUTOMATED 191 k/mm3 (150-450); RED CELL DISTRIBUTION WIDTH 13.2 % (11.5-14.5); WHITE BLOOD COUNT 7.2 K/mm3 (4.0-10.0)
[2016-04-26 15:28] LABS: CALCIUM LEVEL 7.8 MG/DL (8.8-10.2); CREATININE FOR GFR 3.38 MG/DL (0.70-1.30); GLOMERULAR FILTRATION RATE 18.5 (>35); MAGNESIUM LEVEL 1.9 MG/DL (1.8-2.4); POTASSIUM SERUM 4.4 MEQ/L (3.5-5.1)
[2016-04-26 16:00] VITALS: BP 126/83
[2016-04-26 20:00] VITALS: BP 137/63
--- NOTE | 2016-04-26 22:05 | IPNPDOC ---
Text Note Date of Service The patient was seen on 04/26/16. NOTE Subjective: 85-year-old male seen and examined at bedside. Otherwise, he denied fevers, chills, chest pain, shortness of breath, nausea, vomiting, diarrhea, abdominal pain, rashes or lesions anywhere, edema, pain anywhere else. Admits to constipation. Nursing reports patient has difficulty swallowing. Patient still has a sitter since he has gotten confused earlier. Later in the day, nursing reported patient had 7 beats of Vtach but remained asymptomatic. His BP was 104/61, HR 84, RR 20, K 4.5, and Mg 2. Objective: Vitals: T: 100.8, BP: 112/56, RR: 18, P: 83, O2 Saturation: 94% on room air. General: Pleasant and cooperative elderly thin male in no acute distress. Sitting up in chair. Awake, alert, oriented 3. HEENT: Head: normocephalic, atraumatic. Eyes: sclera are nonicteric. Nose: No external lesions Neck: No thyromegaly. Respiratory: clear to auscultation bilaterally with no wheezes, rales, or rhonchi. Cardiovascular: regular rate and rhythm, +2-3/6 systolic murmur appreciated at L sternal border, without rubs or gallops. Abdomen: soft, nondistended, no hepatosplenomegaly appreciated. +Tenderness to palpation on his LUQ and LLQ. Bowel sounds present. Extremities: no swelling in either lower extremity bilaterally Neurological: No focal neurologic deficits appreciated bilaterally. Lymphatics: No cervical LAD bilaterally. Integumentary: skin free from rashes, lesions, abrasions Vascular: +2 radial and dorsalis pedis pulses palpable bilaterally. Laboratory data: Please see below. Hgb 9.1 from 9.5. Hct 27.3 from 29. BUN is 49 from 53 and Cr is 3.42 from 4.24. Alk Phos: 166 (H) Alb: 2.3 (L) Total Protein: 5 (L) Ca: 7.9 (L) M Microbiology: Urine cultures showed no growth. Blood cultures show no growth to date 48 hours. Imaging: CXR done today: small effusions and minor bibasilar atelectasis. Assessment: This is an 85-year-old male with a past medical history significant for CKD Stage IV, COPD not on home oxygen, hypertension, hyperlipidemia, left- sided nephrolithiasis, history of TIA, who initially presented for abdominal pain and inability to urinate. Is admitted for VIKASH and CKD stage IV secondary to urinary obstruction. Patient is recently status post cystoscopy and ureteroscopy on April 21, 2016. And now, patient is status-post cystoscopy, bilateral retrograde ureteral pyelography with placement of ureteral J-tube on April 24, 2016. Plan: Acute kidney injury in setting of CKD stage IV secondary to urinary obstruction : On 04/24/2016, patient had cystoscopy and bilateral retrograde ureteropyelography POD # 2. Fluoroscopy of the upper urinary tract confirmed the presence of a left lower pole radiopaque 8mm calculus. There is no evidence of urolithiasis or active bleeding. Retrograde ureteropyelogram confirmed a normal caliber ureter and intrarenal collection system. There was no evidence of filling defects or hydroureteronephrosis. Patient's BUN was 49 and creatinine was 3.42 today down from 53 and 4.24 yesterday. GFR was 18.3 today. Continue monitoring I's and O's. Patient has a Henry catheter at this time. He is producing urine which is logan colored. His baseline creatinine is 3.2. On meropenem 500 mg every 12 hours IV. Blood cultures show no growth to date 48 hours and urine cultures showed no growth. In addition, patient has been afebrile but still running low grade temperatures. Will continue to monitor. He denies any fevers. He is on acetaminophen 650 mg every 4 hours when necessary pain/fever. Follow nephrology and urology recommendations. Appreciate input. Continue to monitor daily CBCs, BMPs. Urinary retention: Relieved by Henry catheter. On tamsulosin. Small Pleural Effusions and Bibasilar Atelectasis: Patient was on IVF previously which could have made him fluid overloaded. Is no longer on IVF. Patient not symptomatic or c/o SOB. Will continue to monitor. Patient on Meropenem. Have added incentive spirometer to be done daily to prevent atelectasis and pneumonia. Ventricular Tachycardia Arrhythmia: Patient had 7 beats of Vtach and remained asymptomatic. Electrolytes this morning were: K 4.5, M. I have ordered a STAT repeat CBC, BMP, and Mg. Follow up when available. Keep Mg >2 and K >4. Continue to monitor on telemetry. Hyperkalemia: Potassium was 4.5 and within normal limits today. Dysphagia to Liquids/Solids: Speech and Swallow Therapy Evaluation today. Follow -up when results available. Hypertension: Stable at 112/56. On amlodipine 5 mg. Holding patient's ARB. Constipation: On colace and lactulose. Monitor for BM. If no BM by tomorrow, will add Senokot S and possibly mag citrate. History of COPD: Satting in the 90s on room air now with no difficulty in breathing. Continue Proventil every 4 hours when necessary shortness of breath. Dyslipidemia: Continue simvastatin. TIA: Have held aspirin due to bleeding risk. Hypocalcemia: Patient's whole blood ionized calcium was 4.5 and within normal limits yesterday. Constipation: Continue colace and lactulose. DVT ppx: Heparin discontinued at this time due to bleeding risk. GI ppx: continue protonix. Physical Therapy Evaluation: Physical Therapy Evaluation Note * Pt. I in ambulation without AD prior to hospitalization lives with . Pt. demonstrates good B LE strength, however slightly impulsive with transfers demonstrating decreased safety awareness and ambulation with CGA to ensure safety as decreased step length on R>L. Pt. has decreased planning with stair negotiation as Pt. attempts to descend backwards initially, however demonstrates improved ease with verbal cueing. Recommend skilled PT within reasonable timeframe of 1-2 PT sessions to progress safety awareness and I/ease with ambulation and further assessment of potential DME. Pt. agreeable with POC and verbalized understanding. Pt. seated in recliner with daughter present and call zuñiga within reach and nurse:Suni updated at end of session. PT Recommendations * Recommend OOB in chair for meals ambulation with nursing with RW to ensure safety ~3x/day My preceptor for this patient encounter was Dr. Garcia Sanchez, and was physically present in the building during the encounter and was fully available. As needed , all aspects of the patient interview, examination, medical decision making process, and medical care plan development were reviewed and approved by the preceptor. Preceptor is aware and concurs with the plan as stated in the body of this note and will attest to such by his/her cosignature VS,Guevara, I+O VS, Guevara, I+O Laboratory Tests 04/26/16 05:14 Calcium Level 7.9 L, Phosphorus Level 3.7, Aspartate Amino Transf (AST/SGOT) 15 , Alanine Aminotransferase (ALT/SGPT) 15, Alkaline Phosphatase 166 H, Total Bilirubin 0.5, Total Protein 5.0 L, Albumin 2.3 L, Red Blood Count 2.85 L, Mean Corpuscular Volume 95.8, Mean Corpuscular Hemoglobin 31.9, Mean Corpuscular Hemoglobin Concent 33.3, Red Cell Distribution Width 13.2, Neutrophils (%) (Auto ) 73.7 H, Lymphocytes (%) (Auto) 11.3 L, Monocytes (%) (Auto) 7.6 H, Eosinophils (%) (Auto) 4.2 H, Basophils (%) (Auto) 0.1, Neutrophils # (Auto) 4.8 , Lymphocytes # (Auto) 0.9 L, Monocytes # (Auto) 0.5, Eosinophils # (Auto) 0.3, Basophils # (Auto) 0.0 04/26/16 15:06 Calcium Level 7.8 L, Red Blood Count 3.17 L, Mean Corpuscular Volume 95.3, Mean Corpuscular Hemoglobin 31.1, Mean Corpuscular Hemoglobin Concent 32.6, Red Cell Distribution Width 13.2, Neutrophils (%) (Auto) 75.4 H, Lymphocytes (%) (Auto) 9.8 L, Monocytes (%) (Auto) 6.4 H, Eosinophils (%) (Auto) 4.4 H, Basophils (%) ( Auto) 0.1, Neutrophils # (Auto) 5.5, Lymphocytes # (Auto) 0.7 L, Monocytes # ( Auto) 0.5, Eosinophils # (Auto) 0.3, Basophils # (Auto) 0.0 Vital Signs Date Time Temp Pulse Resp B/P Pulse Ox O2 Delivery O2 Flow Rate FiO2 04/26/16 20:00 99.6 83 18 137/63 95 Room Air 04/25/16 05:04 2.0 I&O- Last 24 Hours up to 6 AM 04/26/16 06:00 Intake Total 3220.00 ml Output Total 1200 ml Balance 2020.00 ml CRAVENJERALD OGME-1 Apr 26, 2016 22:05
[2016-04-27] VITALS (7 sets, daily range): BP systolic 124–156; BP diastolic 59–71
[2016-04-27] MEDS: MEROPENEM INJ 500 MG in D5W MINI-BAG PLUS 100 ML IV SCH ×2 (05:41→17:54)
[2016-04-27 05:46] LABS: BASO % 0.1 % (0.0-1.0); EOS # 0.3 K/mm3 (0.0-0.50); EOS % 4.2 % (0.0-3.0); LARGE UNSTAINED CELL # 0.3 K/mm3 (0.0-0.4); LARGE UNSTAINED CELL % 3.7 % (0.0-4.0); LYMPH # 0.8 K/mm3 (1.5-4.5); MEAN CORPUSCULAR HEMOGLOBIN 31.3 pg (27.0-33.0); MEAN CORPUSCULAR HGB CONC 33.1 g/dl (32.0-36.5); MEAN CORPUSCULAR VOLUME 94.5 fl (80.0-96.0); MONO # 0.4 K/mm3 (0.0-0.8); MONO % 4.9 % (0.0-5.0); NEUTROPHILS # 5.9 K/mm3 (1.8-7.7); NEUTROPHILS % 77.1 % (36.0-66.0); PLATELET COUNT, AUTOMATED 222 k/mm3 (150-450); RED CELL DISTRIBUTION WIDTH 13.1 % (11.5-14.5); WHITE BLOOD COUNT 7.6 K/mm3 (4.0-10.0)
[2016-04-27 06:22] LABS: ALBUMIN 2.4 GM/DL (3.2-5.2); ALBUMIN/GLOBULIN RATIO 0.86 (1.00-1.93); BILIRUBIN,TOTAL 0.4 MG/DL (0.2-1.0); CALCIUM LEVEL 7.8 MG/DL (8.8-10.2); CREATININE FOR GFR 2.86 MG/DL (0.70-1.30); GLOMERULAR FILTRATION RATE 22.5 (>35); MAGNESIUM LEVEL 1.8 MG/DL (1.8-2.4); PHOSPHORUS LEVEL 3.2 MG/DL (2.5-4.9); POTASSIUM SERUM 4.5 MEQ/L (3.5-5.1); TOTAL PROTEIN 5.2 GM/DL (6.4-8.2)
[2016-04-27] MEDS: SIMVASTATIN 20 MG TAB PO SCH (09:09)
[2016-04-27] MEDS: ACETAMINOPHEN TAB 650MG DOSE (2X325MG) PO PRN (09:09)
[2016-04-27] MEDS: amLODIPine 5 MG TAB PO SCH (09:09)
[2016-04-27] MEDS: PANTOPRAZOLE 40MG TAB (PROTONIX) PO SCH (09:10)
[2016-04-27] MEDS: FERROUS SULFATE 325MG TAB PO SCH (09:10)
[2016-04-27] MEDS: TAMSULOSIN 0.4 MG CAP PO SCH (09:10)
[2016-04-27] MEDS: DOCUSATE SODIUM 100 MG CAP PO SCH (09:10)
[2016-04-27] MEDS: GABAPENTIN 100 MG CAP PO SCH (09:10)
[2016-04-27] MEDS: SENOKOT S TAB PO SCH ×2 (12:23→21:18)
--- NOTE | 2016-04-27 12:26 | IPN ---
DATE: 04/27/2016 SUBJECTIVE: Patient was seen and examined at the bedside today in the morning. Patient does not have any active complaints. His renal function continues to improve. His IV fluids have been stopped. Patient's neurological status is also significantly better today. REVIEW OF SYSTEMS: Patient denies any fevers, chills, rigors, headache, nausea, vomiting, chest pain, shortness of breath, pain in abdomen, constipation, diarrhea. Rest of review of system is negative. OBJECTIVE: Vital signs: Temperature is 100.3 degrees Fahrenheit, blood pressure is 130/59, pulse is 83, respiratory rate 18, saturating 94% on room air. Intake and output: Urine output recorded at 2.2 liter yesterday, 300 mL so far today since overnight. Weight on the bed scale is 59.1 kg. PHYSICAL EXAMINATION: General: Patient is awake, alert, oriented times three, sitting on the bed in no apparent distress. Head and neck exam: Extraocular muscles intact. Pupils equal, round, reactive to light. Mucous membranes are moist. Neck is supple. There is no jugular venous distention (JVD). Cardiovascular: Patient has grade 3/6 ejection systolic murmur. Otherwise regular rate. Respiratory: Patient has mild expiratory rhonchi at the bases bilaterally. Otherwise bilateral equal air entry. Abdomen: Soft, positive bowel sounds, nontender, no ascites, no organomegaly. Extremities: No clubbing or cyanosis. Pulses are 2+. Central nervous system: No focal neurological deficits. Power is 5/5 in all extremities. Psych: Normal mood and affect. Skin: No rashes or ulcers. LAB REVIEW: CBC showed WBC 7.6, hemoglobin 9.7, platelets are 222. BMP showed sodium 140, potassium 4.5, chloride 108, bicarbonate 24, BUN 40, creatinine 2.8. It was 3.3 yesterday. Calcium is 7.8. Albumin is 2.4. Microbiology: All of the cultures are negative so far. Imaging: Chest x-ray done yesterday morning showed small effusions and minor bibasilar atelectasis. CURRENT MEDICATIONS: Patient continues to be on IV meropenem 500 mg IV every 12 hours. There is no change in the medications today as compared to yesterday. ASSESSMENT: Mr. Pardeep Stanley is an 85-year-old male with past medical history of chronic kidney disease stage IV with left sided hydronephrosis secondary to kidney stone. Patient was admitted this time to the hospital with acute kidney injury superimposed on chronic kidney disease stage IV and urinary obstruction. Patient is status post repeat cystoscopy and ureteroscopy and placement of the left sided ureteric stent. PLAN: 1. Acute kidney injury superimposed on chronic kidney disease stage IV. Patient's baseline creatinine as outpatient is around 3.2. His renal function is significantly better. His creatinine today is actually better than his baseline. IV fluids were stopped. Continue to encouraged oral hydration. 2. Urinary retention. Patient continues to have Henry catheter for now. Continue Flomax. Patient will probably be discharged with Henry catheter and voiding trial will be done as outpatient. 3. Hypertension. Blood pressure is acceptable at this time. Continue current dose of amlodipine. Avoid kory inhibitors at this time. 4. Iron deficiency anemia. Patient was given a dose of IV Venofer. His hemoglobin is 9.7 today. Continue to monitor for now. No need of Aranesp at this time. 5. Fever spikes. Patient's cultures are negative so far. He continues to be on IV meropenem. He did have some retroperitoneal fluid in the CAT scan done earlier. The rest of the management of fever as per primary team and urology. 6. Discharge planning. Patient's renal function has improved back to his baseline. Nephrology service would sign off at this moment. Patient can followup with nephrology 2 weeks after discharge from the hospital. Patient is still having low grade temperature at this time. The rest of the management of fever is as per primary team. Please call nephrology as needed for any help in the management of this patient in future. RAMÍREZ
--- NOTE | 2016-04-27 13:40 | REP ---
Clinical: Left flank pain. Comparison: 04/24/2016, 04/06/2016. Findings: Lung bases demonstrate new small pleural effusions and moderate bibasilar atelectasis. A left ureteral stent is identified extending from the proximal ureter/renal pelvis to the bladder and the previously noted hydronephrosis has resolved. A 13 mm calculus is identified in the left renal pelvis and unchanged from prior examination. The previously noted retroperitoneal and perinephric fluid and stranding has essentially completely resolved. The right kidney/ureter and bladder are grossly unremarkable. Henry catheter is identified in the bladder. Liver, spleen, pancreas, bilateral adrenal glands are normal / stable. The enteric system demonstrates moderate fecal stasis without obstruction or acute inflammatory process. Scattered diverticula noted without acute diverticulitis. Right inguinal hernia contains nonobstructed loop of bowel. No ascites. No free air. No significant adenopathy. Musculoskeletal structures demonstrate age-related changes. Atherosclerotic changes of the aorta and vasculature noted without aneurysm. Impression: 1. Left ureteral stent in relatively satisfactory position stable 13 mm calculus in the left renal pelvis and the previously noted hydronephrosis as well as the retroperitoneal and perinephric fluid and stranding has resolved. 2. Small bilateral pleural effusions and moderate bibasilar atelectasis. 3. Moderate fecal stasis without obstruction or acute inflammatory process. 4. No further acute intra-abdominal or pelvic pathology appreciated. Signed by Elroy Jones MD 04/27/2016 01:32 P
--- NOTE | 2016-04-27 23:00 | IPNPDOC ---
Text Note Date of Service The patient was seen on 04/27/16. NOTE Subjective: 85-year-old male seen and examined at bedside. Otherwise, he denied fevers, chills, chest pain, shortness of breath, nausea, vomiting, diarrhea, rashes or lesions anywhere, edema, pain anywhere else. Admits to constipation and mid-left sided abdominal pain. Family at bedside stating that patient is doing well without nicotine patch for smoking and has not thought about having a cigarette. Patient not sure if he is willing to quit smoking. Nursing reports still having low grade temperatures and spiking fevers. Objective: Vitals: T: 100.3, BP: 130/59, RR: 18, P:83, O2 Saturation: 94% on room air. I/O: 1940/2225, -285 balance, BMs: 0. General: Pleasant and cooperative elderly thin male in no acute distress. Laying up in bed. Awake, alert, oriented 3. HEENT: Head: normocephalic, atraumatic. Eyes: sclera are nonicteric. Nose: No external lesions Neck: No thyromegaly. Respiratory: clear to auscultation bilaterally with no wheezes, rales, or rhonchi. Cardiovascular: regular rate and rhythm, +2-3/6 systolic murmur appreciated at L sternal border, without rubs or gallops. Abdomen: soft, nondistended, no hepatosplenomegaly appreciated. +Tenderness to palpation on his LUQ and LLQ as well as midepigastric/midabdominal area. Bowel sounds present. Extremities: no swelling in either lower extremity bilaterally Neurological: No focal neurologic deficits appreciated bilaterally. Lymphatics: No cervical LAD bilaterally. Integumentary: skin free from rashes, lesions, abrasions Vascular: +2 radial and dorsalis pedis pulses palpable bilaterally. Laboratory data: Please see below. Microbiology: Urine cultures showed no growth. Blood cultures show no growth to date 72 and 24 hours. MRSA screen pending. Imaging: CT Abd/Pelvis without IV Contrast pending. Assessment: This is an 85-year-old male with a past medical history significant for CKD Stage IV, COPD not on home oxygen, hypertension, hyperlipidemia, left- sided nephrolithiasis, history of TIA, who initially presented for abdominal pain and inability to urinate. Is admitted for VIKASH and CKD stage IV secondary to urinary obstruction. Patient is recently status post cystoscopy and ureteroscopy on April 21, 2016. And now, patient is status-post cystoscopy, bilateral retrograde ureteral pyelography with placement of ureteral J-tube on April 24, 2016. Plan: Acute kidney injury in setting of CKD stage IV secondary to urinary obstruction : On 04/24/2016, patient had cystoscopy and bilateral retrograde ureteropyelography POD # 3. Fluoroscopy of the upper urinary tract confirmed the presence of a left lower pole radiopaque 8 mm calculus. There is no evidence of urolithiasis or active bleeding. Retrograde ureteropyelogram confirmed a normal caliber ureter and intrarenal collection system. There was no evidence of filling defects or hydroureteronephrosis. Patient's BUN was 40 and creatinine was 2.86 today down from yesterday. Continue monitoring I's and O 's. Patient has a Gross catheter at this time. He is producing urine which is still not quite clear and has red-tinge to it. His baseline creatinine is 3.2. On meropenem 500 mg every 12 hours IV. Blood cultures show no growth to date 72 and 24 hours and urine cultures showed no growth. In addition, patient has been afebrile but still running low grade temperatures, spiking fevers occasionally. This may due to postoperative fever, an infection related to his gross, pneumonia or another process going on such as hematoma after his procedure. Have ordered MRSA screen and CT abdomen/pelvis without IV contrast. If MRSA screen, positive, will add vancomycin to regimen. Will continue to monitor for fevers. He denies any fevers at the moment. He is on acetaminophen 650 mg every 4 hours when necessary pain/fever. Follow nephrology and urology recommendations. Appreciate input. Continue to monitor daily CBCs, BMPs. Urinary retention: Relieved by Gross catheter. On tamsulosin. Iron Deficiency Anemia: management as per Nephrology. Small Pleural Effusions and Bibasilar Atelectasis: Patient was on IVF previously which could have made him fluid overloaded. Is no longer on IVF. Patient not symptomatic or c/o SOB. Will continue to monitor. Patient on Meropenem. Continue incentive spirometer to be done daily to prevent atelectasis and pneumonia. Ventricular Tachycardia Arrhythmia: Patient had 7 beats of Vtach and remained asymptomatic yesterday. No reports of any new Vtach. Electrolytes this morning were: K 4.5, M.8. Keep Mg >2 and K >4. Continue to monitor on telemetry. Hyperkalemia: Potassium was 4.5 and within normal limits today. Dysphagia to Liquids/Solids: Speech and Swallow Therapy Evaluation: Recommended Diet * Regular Diet Recommended Liquids * Honey Thick Liquid Recommended positioning * Upright in chair, as able Recommended compensatory strategies * Feed When Awake/Alert Hypertension: Stable. On amlodipine 5 mg. Holding patient's ARB. History of COPD: Satting in the 90s on room air now with no difficulty in breathing. Continue Proventil every 4 hours when necessary shortness of breath. Dyslipidemia: Continue simvastatin. TIA: Have held aspirin due to bleeding risk. Hypocalcemia: continue to monitor levels. Constipation: Continue colace and lactulose. Added Senokot S. If no BM, can add milk of magnesia and mag citrate. DVT ppx: Heparin discontinued at this time due to bleeding risk. GI ppx: continue protonix. Physical Therapy On Board. Home Health/[facility] Consult for gross. Immunizations as per protocol. My preceptor for this patient encounter was Dr. Garcia Sanchez, and was physically present in the building during the encounter and was fully available. As needed , all aspects of the patient interview, examination, medical decision making process, and medical care plan development were reviewed and approved by the preceptor. Preceptor is aware and concurs with the plan as stated in the body of this note and will attest to such by his/her cosignature Guevara THAYER, I+O VSGuevara, I+O Laboratory Tests 04/27/16 05:23 Calcium Level 7.8 L, Phosphorus Level 3.2, Aspartate Amino Transf (AST/SGOT) 14 L, Alanine Aminotransferase (ALT/SGPT) 13, Alkaline Phosphatase 172 H, Total Bilirubin 0.4, Total Protein 5.2 L, Albumin 2.4 L, Red Blood Count 3.10 L, Mean Corpuscular Volume 94.5, Mean Corpuscular Hemoglobin 31.3, Mean Corpuscular Hemoglobin Concent 33.1, Red Cell Distribution Width 13.1, Neutrophils (%) (Auto ) 77.1 H, Lymphocytes (%) (Auto) 10.0 L, Monocytes (%) (Auto) 4.9, Eosinophils ( %) (Auto) 4.2 H, Basophils (%) (Auto) 0.1, Neutrophils # (Auto) 5.9, Lymphocytes # (Auto) 0.8 L, Monocytes # (Auto) 0.4, Eosinophils # (Auto) 0.3, Basophils # (Auto) 0.0 Vital Signs Date Time Temp Pulse Resp B/P Pulse Ox O2 Delivery O2 Flow Rate FiO2 04/27/16 20:00 Room Air 04/27/16 19:34 99.0 78 18 145/66 98 04/25/16 05:04 2.0 I&O- Last 24 Hours up to 6 AM 04/27/16 06:00 Intake Total 1940 ml Output Total 2525 ml Balance -585 ml JERALD CRAVENFL-1 Apr 27, 2016 23:00 JERALD CRAVEN-1 Apr 27, 2016 23:00
[2016-04-28] MEDS: MEROPENEM INJ 500 MG in D5W MINI-BAG PLUS 100 ML IV SCH ×2 (05:12→17:02)
[2016-04-28 05:21] LABS: BASO % 0.1 % (0.0-1.0); EOS # 0.3 K/mm3 (0.0-0.50); EOS % 4.1 % (0.0-3.0); LARGE UNSTAINED CELL # 0.3 K/mm3 (0.0-0.4); LARGE UNSTAINED CELL % 3.7 % (0.0-4.0); LYMPH # 1.1 K/mm3 (1.5-4.5); LYMPH % 10.8 % (24.0-44.0); MEAN CORPUSCULAR HEMOGLOBIN 31.3 pg (27.0-33.0); MEAN CORPUSCULAR HGB CONC 32.9 g/dl (32.0-36.5); MEAN CORPUSCULAR VOLUME 95.1 fl (80.0-96.0); MONO # 0.4 K/mm3 (0.0-0.8); MONO % 5.7 % (0.0-5.0); NEUTROPHILS # 5.8 K/mm3 (1.8-7.7); NEUTROPHILS % 75.7 % (36.0-66.0); PLATELET COUNT, AUTOMATED 234 k/mm3 (150-450); RED CELL DISTRIBUTION WIDTH 13.1 % (11.5-14.5); WHITE BLOOD COUNT 7.6 K/mm3 (4.0-10.0)
[2016-04-28 05:28] LABS: ALBUMIN 2.3 GM/DL (3.2-5.2); ALBUMIN/GLOBULIN RATIO 0.77 (1.00-1.93); BILIRUBIN,TOTAL 0.4 MG/DL (0.2-1.0); CALCIUM LEVEL 7.8 MG/DL (8.8-10.2); CREATININE FOR GFR 2.58 MG/DL (0.70-1.30); GLOMERULAR FILTRATION RATE 25.3 (>35); MAGNESIUM LEVEL 1.8 MG/DL (1.8-2.4); PHOSPHORUS LEVEL 2.9 MG/DL (2.5-4.9); POTASSIUM SERUM 4.5 MEQ/L (3.5-5.1); TOTAL PROTEIN 5.3 GM/DL (6.4-8.2)
[2016-04-28 05:37] VITALS: BP 140/65
[2016-04-28 07:50] VITALS: BP 147/71
[2016-04-28] MEDS: DOCUSATE SODIUM 100 MG CAP PO SCH (08:29)
[2016-04-28] MEDS: SIMVASTATIN 20 MG TAB PO SCH (08:29)
[2016-04-28] MEDS: PANTOPRAZOLE 40MG TAB (PROTONIX) PO SCH (08:29)
[2016-04-28] MEDS: GABAPENTIN 100 MG CAP PO SCH (08:29)
[2016-04-28] MEDS: FERROUS SULFATE 325MG TAB PO SCH (08:29)
[2016-04-28] MEDS: amLODIPine 5 MG TAB PO SCH (08:30)
[2016-04-28] MEDS: TAMSULOSIN 0.4 MG CAP PO SCH (08:30)
[2016-04-28] MEDS: SENOKOT S TAB PO SCH ×2 (08:30→20:07)
[2016-04-28 11:36] VITALS: BP 135/63
[2016-04-28 14:00] VITALS: BP 158/74
--- NOTE | 2016-04-28 17:39 | IPNPDOC ---
Subjective Date Seen The patient was seen on 04/28/16. Subjective Chief Complaint/HPI The patient is a 85-year-old male admitted with a reason for visit of Acute Renal Failure Superimposed On Stage 4 Chronic Kidney Disease. Patient seen and examined at bedside. States he is feeling pretty good. Denies fevers, chills, chest pain, SOB, headache, dizziness, nausea, vomiting, abdominal pain, diarrhea, constipation, swelling, rashes or lesions anywhere, pain anywhere else. Admits that he had a large BM this AM. Requesting to go back on regular diet as he does not like honey/nectar thick liquids. States he is having no difficulty swallowing any longer. Feels ready to go home. Events since last encounter No acute events reported. General: Reports: Normal Appetite, Denies: Chills, Fatigue Constitutional: Denies: Chills, Fever ENT: Denies: Dysphagia, Head Aches Skin: Denies: Lesions, Rash Pulmonary: Denies: Cough, Dyspnea Cardiovascular: Denies: Chest Pain, Edema, Palpitations Gastrointestinal: Denies: Abdominal Pain, Constipation, Diarrhea, Hematochezia , Nausea, Vomiting Genitourinary: Denies: Dysuria, Frequency Endocrine: Denies: Cold Intolerance, Heat Intolerance Musculoskeletal: Denies: Joint Pain, Muscle Pain Neurological: Denies: Weakness Psych: Reports: Mood Normal Objective Physical Examination General Exam: Positive: Alert, Cooperative, No Acute Distress Eye Exam: Positive: Conjunctiva & lids normal, Negative: Sclera icteric ENT Exam: Positive: Atraumatic Neck Exam: Positive: Supple, Negative: JVD, Lymphadenopathy, thyromegaly Chest Exam: Positive: Clear to auscultation, Normal air movement, Negative: Rales, Rhonchi, Wheezing Heart Exam: Positive: Normal S1, Normal S2, Rate Normal, Regular Rhythm, Negative: Gallops, Murmurs, Rubs Abdomen Exam: Positive: Normal bowel sounds, Soft, Tenderness (in LLQ and soreness), Negative: Hepatospenomegaly, Mass Extremity Exam: Positive: Normal pulses (+2 radial and dorsalis pedis pulses bilaterally.), Negative: Clubbing, Cyanosis, Edema Skin Exam: Positive: Nl turgor and temperature, Negative: Rash Neuro Exam: Positive: Normal Speech Psych Exam: Positive: Memory Intact, Mental status NL, Mood NL, Oriented x 3 RAD Interpretation STUDY: CT Scan of the Abd/Pelvis done yesterday showed L ureteral stent in satisfactory position, stable 13 mm calculus in the L renal pelvis and the previously noted hydronephrosis as well as retroperitoneal and perinephric fluid and stranding has resolved. Small bilateral pleural effusions and moderate bibasilar atelectasis, moderate bibasilar atelectasis, moderate fecal stasis without obstruction or acute inflammatory process. No further acute intraabdominal or pelvic pathology appreciated. Rad Actions: Report Reviewed Assessment /Plan Assessment This is an 85-year-old male with a past medical history significant for CKD Stage IV, COPD not on home oxygen, hypertension, hyperlipidemia, left- sided nephrolithiasis, history of TIA, who initially presented for abdominal pain and inability to urinate. 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 Patient is recently status post cystoscopy and ureteroscopy on April 21, 2016. And now, patient is status-post cystoscopy, bilateral retrograde ureteral pyelography with placement of ureteral J-tube on April 24, 2016. Problems (1) Acute renal failure superimposed on stage 4 chronic kidney disease Status: Acute Response to Treatment: Improving Discussed With: Patient Problem Specific Plan: Monitor Clinically, Repeat Labs Problem Text: This is an 85-year-old male with a past medical history significant for CKD Stage IV, COPD not on home oxygen, hypertension, hyperlipidemia, left-sided nephrolithiasis, history of Acute kidney Injury in setting of CKD stage IV secondary to urinary obstruction: On 04/24/2016, patient had cystoscopy and bilateral retrograde ureteropyelography, and L ureteral double J-tube stent placement POD # 4. Fluoroscopy of the upper urinary tract confirmed the presence of a left lower pole radiopaque 8 mm calculus. There is no evidence of urolithiasis or active bleeding. Retrograde ureteropyelogram confirmed a normal caliber ureter and intrarenal collection system. There was no evidence of filling defects or hydroureteronephrosis. Patient's BUN was 35 and creatinine was 2.58 today down from yesterday. Continue monitoring I's and O's. Patient has a Gross catheter at this time. He is producing urine. His baseline creatinine is 3.2 which he has reached back to. On meropenem 500 mg every [address] Plaza [facility] recommended discharging patient on 500 mg ciprofloxacin daily until following up with Dr. Plaza as outpatient. Blood cultures show and urine cultures showed no growth to date. In addition, patient has been afebrile but still running low grade temperatures, spiking fevers occasionally. This may be due to postoperative fever, an infection related to his gross, pneumonia or another process going on such as hematoma after his procedure. Have ordered MRSA screen and CT abdomen/pelvis without IV contrast yesterday. CT scan of the abdomen and pelvis showed L ureteral stent in satisfactory position, a stable 13 mm calculus in the L renal pelvis and the previously noted hydronephrosis as well as retroperitoneal and perinephric fluid and stranding has resolved. Small bilateral pleural effusions and moderate bibasilar atelectasis, moderate fecal stasis without obstruction or acute inflammatory process. No further acute intraabdominal or pelvic pathology appreciated. If MRSA screen, positive, will add vancomycin to regimen. Will continue to monitor for fevers. He denies any fevers at the moment. He is on acetaminophen 650 mg every 4 hours when necessary pain/fever. Follow nephrology and urology recommendations. Appreciate input. Continue to monitor daily CBCs, BMPs. Continue tylenol PRN fever/pain. Transferring patient from PCU to Med/Surg as likely discharge tomorrow. (2) Retention of urine, unspecified Status: Acute Response to Treatment: Stable, Controlled Discussed With: Patient Problem Specific Plan: Monitor Clinically Problem Text: Secondary to VIKASH on CKD Stage 4. Relieved by Gross catheter. Continue tamsulosin and meropenem. Will be discharged on 500 mg ciprofloxacin PO daily until outpatient follow up with Dr. Plaza. (3) Hyperkalemia Status: Resolved Discussed With: Patient Problem Specific Plan: Monitor Clinically Problem Text: Potassium was 4.5 and within normal limits today. (4) Iron deficiency anemia Status: Acute Problem Specific Plan: Monitor Clinically, Repeat Labs Problem Text: Hgb stable at 9.7. Nephrology started venofer. Continue ferrous sulfate. Continue to monitor. Follow Nephrology recommendations. (5) Bilateral pleural effusion Status: Acute Response to Treatment: Stable Discussed With: Patient Problem Specific Plan: Monitor Clinically Problem Text: Patient was on IVF previously which could have made him fluid overloaded. Is no longer on IVF. Patient not symptomatic or c/o SOB. Will continue to monitor. Patient on Meropenem. Continue incentive spirometer to be done daily to prevent atelectasis and pneumonia. (6) Mild bibasilar atelectasis Status: Acute Response to Treatment: Stable Discussed With: Patient Problem Specific Plan: Monitor Clinically Problem Text: Continue incentive spirometry. Monitor for fevers and SOB, cough. (7) Ventricular tachyarrhythmia Status: Resolved Discussed With: Patient Problem Specific Plan: Monitor Clinically Problem Text: Ventricular Tachycardia Arrhythmia: Patient had 7 beats of Vtach and remained asymptomatic 2 days ago. No reports of any new Vtach. Electrolytes this morning were: K 4.5, M.8, Phos 2.9 and WNL. Keep Mg >2 and K >4 if symptomatic with chest pain, SOB, palpitations, dizziness, etc. (8) Dysphagia Status: Resolved Response to Treatment: Improving Discussed With: Patient Problem Specific Plan: Monitor Clinically Problem Text: Dysphagia to Liquids/Solids: Speech and Swallow Therapy recommended patient to go back on regular liquids and regular diet as patient stating he can swallow normally again. (9) Hypertension Status: Chronic Response to Treatment: Stable Discussed With: Patient Problem Specific Plan: Monitor Clinically Problem Text: Stable and was 140/65. On amlodipine 5 mg. Holding patient's ARB. (10) Constipation Status: Resolved Response to Treatment: Improving Discussed With: Patient Problem Specific Plan: Monitor Clinically Problem Text: Continue colace and lactulose, and Senokot S. If no BM, can add milk of magnesia and mag citrate. (11) History of COPD Status: Chronic Response to Treatment: Stable Discussed With: Patient Problem Specific Plan: Monitor Clinically Problem Text: History of COPD: Satting in the 90s on room air now with no difficulty in breathing. Continue Proventil every 4 hours PRN shortness of breath. (12) Dyslipidemia Status: Chronic Response to Treatment: Stable Discussed With: Patient Problem Specific Plan: Monitor Clinically Problem Text: Continue simvastatin. (13) TIA (transient ischemic attack) Status: Resolved Discussed With: Patient Problem Specific Plan: Monitor Clinically Problem Text: Hx of TIA: no symptoms of numbness, tingling, weakness of any extremities or face, nor slurred speech reported during hospital stay. Have held aspirin due to bleeding risk. Will continue to monitor for any such symptoms and keep BP under control. (14) Metabolic acidosis Status: Resolved Discussed With: Patient Problem Specific Plan: Monitor Clinically, Repeat Labs Problem Text: As per Nephrology, status-post IV bicarb drip and IVF. Has resolved. (15) Hypocalcemia Status: Chronic Response to Treatment: Stable Discussed With: Patient Problem Specific Plan: Monitor Clinically, Repeat Labs Problem Text: As per Nephrology, ionized calcium is normal. Status-post calcium gluconate x 2. No further intervention recommended by Nephrology at this time. Plan/VTE VTE Prophylaxis Ordered?: Yes (TEDs Antiembolic stockings. ) VTE Exclusion Mechanical Proph: N/A:VTE Prophy Ordered VTE Exclusion Pharmacological: Bleeding Risk Plan/Urinary Catheter Urinary Catheter: Other Catheter: (has gross-catheter placed for short-term) Reason for insertion/continuin: Acute obstruct/retention Plan Diet: Continue Current Activity: Continue Current Therapy: PT, OT, Speech, Home Safety Eval Pt and Family Services: Other PFS Medications: Bowel Regimen, Other Med: (continue antibiotics until gross removal at outpatient Urology office) Respiratory: Pulse Ox on Room Air Diagnostics: Repeat Labs in AM Anticipated Discharge: Home With Services Disposition DVT ppx: Heparin discontinued at this time due to bleeding risk. GI ppx: continue protonix. PT/OT On Board. Recommend 1 more day prior to discharge though they have cleared patient for home without any services recommended. Home Health Care/PFS Consulted for gross. Immunizations as per protocol. VS, I&O, 24H, Fishbone Vital Signs/I&O Vital Signs Date Time Temp Pulse Resp B/P Pulse Ox O2 Delivery O2 Flow Rate FiO2 04/28/16 14:30 Room Air 04/28/16 14:00 98.7 93 18 158/74 93 04/25/16 05:04 2.0 I&O- Last 24 Hours up to 6 AM 04/28/16 06:00 Intake Total 1240 ml Output Total 1350 ml Balance -110 ml Laboratory Data 24H LABS Laboratory Tests 2 04/28/16 05:01: Blood Urea Nitrogen 35H, Creatinine 2.58H, Sodium Level 142, Potassium Level 4.5 , Chloride Level 110H, Carbon Dioxide Level 25, Calcium Level 7.8L, Phosphorus Level 2.9, Aspartate Amino Transf (AST/SGOT) 12L, Alanine Aminotransferase (ALT/ SGPT) 14, Alkaline Phosphatase 184H, Total Bilirubin 0.4, Total Protein 5.3L, Albumin 2.3L, Albumin/Globulin Ratio 0.77L, Anion Gap 7L, White Blood Count 7.6 , Red Blood Count 3.10L, Hemoglobin 9.7L, Hematocrit 29.5L, Mean Corpuscular Volume 95.1, Mean Corpuscular Hemoglobin 31.3, Mean Corpuscular Hemoglobin Concent 32.9, Red Cell Distribution Width 13.1, Platelet Count 234, Neutrophils (%) (Auto) 75.7H, Lymphocytes (%) (Auto) 10.8L, Monocytes (%) (Auto) 5.7H, Eosinophils (%) (Auto) 4.1H, Basophils (%) (Auto) 0.1, Neutrophils # (Auto) 5.8 , Lymphocytes # (Auto) 1.1L, Monocytes # (Auto) 0.4, Eosinophils # (Auto) 0.3, Basophils # (Auto) 0.0, Glomerular Filtration Rate 25.3L, Large Unclassified Cells # 0.3, Large Unclassified Cells % 3.7, Magnesium Level 1.8 CBC/BMP Laboratory Tests 04/28/16 05:01 Calcium Level 7.8 L, Phosphorus Level 2.9, Aspartate Amino Transf (AST/SGOT) 12 L, Alanine Aminotransferase (ALT/SGPT) 14, Alkaline Phosphatase 184 H, Total Bilirubin 0.4, Total Protein 5.3 L, Albumin 2.3 L, Red Blood Count 3.10 L, Mean Corpuscular Volume 95.1, Mean Corpuscular Hemoglobin 31.3, Mean Corpuscular Hemoglobin Concent 32.9, Red Cell Distribution Width 13.1, Neutrophils (%) (Auto ) 75.7 H, Lymphocytes (%) (Auto) 10.8 L, Monocytes (%) (Auto) 5.7 H, Eosinophils (%) (Auto) 4.1 H, Basophils (%) (Auto) 0.1, Neutrophils # (Auto) 5.8 , Lymphocytes # (Auto) 1.1 L, Monocytes # (Auto) 0.4, Eosinophils # (Auto) 0.3, Basophils # (Auto) 0.0 Microbiology Microbiology 04/26/16 Blood Culture - Preliminary, Resulted No Growth after 48 hours. All Specime... 04/26/16 Blood Culture - Preliminary, Resulted No Growth after 48 hours. All Specime... 04/24/16 Blood Culture - Preliminary, Resulted No Growth after 72 hours. All specime... 04/24/16 Blood Culture - Preliminary, Resulted No Growth after 72 hours. All specime... 04/28/16 MRSA Screen, Received Pending 04/24/16 Urine Culture - Final, Complete 04/24/16 Urine Culture - Final, Complete GME ATTESTATION GME ATTESTATION My preceptor for this patient encounter was Dr. Garcia Sanchez, and was physically present in the building during the encounter and was fully available. As needed , all aspects of the patient interview, examination, medical decision making process, and medical care plan development were reviewed and approved by the preceptor. Preceptor is aware and concurs with the plan as stated in the body of this note and will attest to such by his/her cosignature. JERALD CRAVEN OGME-1 Apr 28, 2016 17:39
[2016-04-28 22:00] VITALS: BP 138/70
[2016-04-29] MEDS: MEROPENEM INJ 500 MG in D5W MINI-BAG PLUS 100 ML IV SCH (04:22)
[2016-04-29] MEDS: ACETAMINOPHEN TAB 650MG DOSE (2X325MG) PO PRN (04:55)
[2016-04-29 06:00] VITALS: BP 128/58
[2016-04-29 06:35] LABS: BASO % 0.2 % (0.0-1.0); EOS # 0.3 K/mm3 (0.0-0.50); EOS % 3.6 % (0.0-3.0); LARGE UNSTAINED CELL # 0.3 K/mm3 (0.0-0.4); LARGE UNSTAINED CELL % 3.6 % (0.0-4.0); LYMPH # 1.3 K/mm3 (1.5-4.5); LYMPH % 12.9 % (24.0-44.0); MEAN CORPUSCULAR HEMOGLOBIN 31.8 pg (27.0-33.0); MEAN CORPUSCULAR HGB CONC 33.2 g/dl (32.0-36.5); MEAN CORPUSCULAR VOLUME 95.9 fl (80.0-96.0); MONO # 0.4 K/mm3 (0.0-0.8); MONO % 5.8 % (0.0-5.0); NEUTROPHILS # 5.7 K/mm3 (1.8-7.7); NEUTROPHILS % 73.9 % (36.0-66.0); PLATELET COUNT, AUTOMATED 239 k/mm3 (150-450); RED CELL DISTRIBUTION WIDTH 13.1 % (11.5-14.5); WHITE BLOOD COUNT 7.7 K/mm3 (4.0-10.0)
[2016-04-29 07:14] LABS: ALBUMIN 2.3 GM/DL (3.2-5.2); ALBUMIN/GLOBULIN RATIO 0.82 (1.00-1.93); BILIRUBIN,TOTAL 0.4 MG/DL (0.2-1.0); CALCIUM LEVEL 7.8 MG/DL (8.8-10.2); CREATININE FOR GFR 2.35 MG/DL (0.70-1.30); GLOMERULAR FILTRATION RATE 28.2 (>35); MAGNESIUM LEVEL 1.7 MG/DL (1.8-2.4); PHOSPHORUS LEVEL 2.7 MG/DL (2.5-4.9); POTASSIUM SERUM 4.1 MEQ/L (3.5-5.1); TOTAL PROTEIN 5.1 GM/DL (6.4-8.2)
[2016-04-29] MEDS: DOCUSATE SODIUM 100 MG CAP PO SCH (08:00)
[2016-04-29] MEDS: SENOKOT S TAB PO SCH (08:01)
[2016-04-29] MEDS: SIMVASTATIN 20 MG TAB PO SCH (08:05)
[2016-04-29] MEDS: FERROUS SULFATE 325MG TAB PO SCH (08:05)
[2016-04-29] MEDS: GABAPENTIN 100 MG CAP PO SCH (08:05)
[2016-04-29 08:06] VITALS: BP 128/58
[2016-04-29] MEDS: PANTOPRAZOLE 40MG TAB (PROTONIX) PO SCH (08:06)
[2016-04-29] MEDS: TAMSULOSIN 0.4 MG CAP PO SCH (08:06)
[2016-04-29] MEDS: amLODIPine 5 MG TAB PO SCH (08:06)
[2016-04-29] MEDS ORDERED: CIPR5SUS PO (09:53)
[2016-04-29] MEDS ORDERED: CIPR500T89 PO (10:25)
[2016-04-29] MEDS ORDERED: CEPH500T PO (11:33)
--- NOTE | 2016-04-29 22:05 | DS.PDOC ---
Discharge Summary General Date of Admission Apr 24, 2016 at 02:39 Date of Discharge Apr 29, 2016 at 13:15 Primary Care Physician: MICHAEL SHARIF M.D. Attending Physician: TAI VU MD Specialist/Consultants Involve: RIGO POOL MD Specialist/Consultants Involve Dr. Ivon Crenshaw Nephrology Dr. Rigo Pool Urology PFS Consult for Gross Catheter Physical Therapy Speech and Swallow Therapy Discharge Summary Consults: Dr. Ivon Crenshaw Nephrology Dr. 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 Secondary diagnosis: Dysphagia Constipation Hypocalcemia Iron Deficiency Anemia Small pleural effusions and bibasilar atelectasis Hyperkalemia 7 beat run of Ventricular Tachycardia Arrhythmia--resolved TIA 8 years ago CKD Stage 4 COPD (not on oxygen) HTN DLP Hx of Nephrolithiasis Perirectal Abscess Hospital course: 85 yo M presented to [facility] ED on 04/29 for abdominal pain and inability to urinate. Stated he had a hx of renal stones and was being followed as an outpatient by Dr. Ulloa and his PCP. Patient had a CT scan earlier this year for abdominal pain that revealed a kidney stone in his ureter. Had a cystoscopy and stenting of the L ureter with Dr. Plaza on 04/21 a week prior to ED presentation. However, since the cystoscopy procedure, patient has been having worsening 8/10 burning nonradiating abdominal pain associated with nausea but no vomiting, and developed inability to pass urine. In the ED, patient had a CT scan which showed bladder distension and a gross catheter had to be placed which helped relieve a large volume of urine. Patient was then admitted to the hospital for further medical management. Patient was found to have VIKASH on CKD Stage IV secondary to urinary obstruction. Urology was consulted for urinary obstruction, and nephrology consult was placed for VIKASH, and patient was managed under their supervision. Iron deficiency anemia, hyperkalemia, hypocalcemia were managed by Nephrology. Urine cx, blood cx, and MRSA screen were all negative throughout hospitalization. Imaging studies were done. CT scan of the abd/pelvis on 04/24 showed moderate amount of free fluid in the retroperitoneal space on the L side, associated free air densities, low position of the L double-J catheter with its upper loop at the level of the proximal ureter, unchanged L renal nonobstructing stone, distended bladder, constipation, gastroparesis. Portable CXR done on 04/24 showed no active disease. On 04/24/2016, patient had cystoscopy and bilateral retrograde ureteropyelography. Fluoroscopy of the upper urinary tract confirmed the presence of a left lower pole radiopaque 8 mm calculus. There was no evidence of urolithiasis or active bleeding. Retrograde ureteropyelogram confirmed a normal caliber ureter and intrarenal collection system. There was no evidence of filling defects or hydroureteronephrosis. Retrograde pyelogram done on 04/24 showed bilateral ureteral cannulation and contrast injection and double pigtail L ureteral stenting. Today, patient's BUN and Cr were down from yesterday. Has baseline Cr is 3.2. We had monitored patient's I's and O's daily. Patient remained with a Gross catheter during hospitalization. He was producing urine which was changing from red-tinged to clear and normal yellow colored. Patient was placed on meropenem 500 mg every 12 hours IV. In addition, patient ran low grade temperatures and spiked fevers occasionally during hospitalization. This may have been due to postoperative fever, an infection related to his gross, pneumonia. Hematoma was ruled out as a possible source of fever after doing CT scan of abdomen/pelvis on 04/27 (please see below). Patient himself remained asymptomatic and did not report any fevers. He was placed on acetaminophen 650 mg every 4 hours PRN pain/fever. We monitored daily CBCs, BMPs. Urinary retention was relieved by gross catheter and tamsulosin. In addition, patient developed a 7 beat run of Ventricular Tachycardia Arrhythmia which resolved, and patient remained asymptomatic. No reports of any new Vtach. We monitored patient on telemetry. Patient also developed dysphagia to liquids and solids. A Speech and Swallow Therapy evaluation was done which recommended a regular diet and honey thick liquids. Dysphagia had improved and Speech Therapist recommended to go back to regular liquids for discharge. Physical therapy worked with the patient and cleared patient to go back home as prior independence. PFS consult was also placed for gross catheter management at home. Patient's Hypertension was managed with amlodipine 5 mg. ARB was held by Nephrology due to patient's renal function. Patient's aspirin and DVT ppx with heparin were held due to bleeding risk as patient was having hematuria after cystoscopy. On 04/26, a 2 view CXR showed small effusions and minor bibasilar atelectasis. Patient was on IVF previously which could have made him fluid overloaded. IVF were discontinued. Incentive spirometry was initiated. Patient was not symptomatic or c/o SOB. Patient was continued on Meropenem. Incentive spirometry was done daily to prevent atelectasis and pneumonia. On 04/27, a CT scan of the abd/pelvis showed L ureteral stent in relatively satisfactory position, stable 13 mm calculus in the L renal pelvis, and resolution of previously noted hydronephrosis as well as the retroperitoneal and perinephric fluid and stranding, small bilateral pleural effusion and moderate bibasilar atelectasis, moderate fecal stasis without obstruction or acute inflammatory process, and no further acute intra-abdominal or pelvic pathology. Patient has improved clinically and is hemodynamically stable. Does not complain of urinary obstruction or abdominal pain at this time. States he is feeling better. Will be discharged today. Progress note on date of discharge: Subjective: 85-year-old male seen and examined at bedside. Reports he is feeling well today. Denies fevers, chills, chest pain, shortness of breath, nausea, vomiting, diarrhea, constipation, abdominal pain, rashes or lesions anywhere, edema, pain anywhere else. Objective: Vitals: T: 100.8, BP: 128/58, RR: 16, P:77, O2 Saturation: 94% on room air. I/O: 2220/1975 mLs, +245 mLs balance for 24 hours yesterday, UO: 1.31 mL/kg/hr. BMs: 1 today. General: Pleasant and cooperative elderly thin male in no acute distress. Laying up in bed. Awake, alert, oriented 3. HEENT: Head: normocephalic, atraumatic. Eyes: sclera are nonicteric. Nose: No external lesions Neck: No thyromegaly. Respiratory: clear to auscultation bilaterally with no wheezes, rales, or rhonchi. Cardiovascular: regular rate and rhythm, +2-3/6 systolic murmur appreciated at L sternal border, without rubs or gallops. Abdomen: soft, nondistended, no hepatosplenomegaly appreciated, minor tenderness to palpation of LUQ/LLQ much improved from prior. Bowel sounds present. Extremities: no swelling in either lower extremity bilaterally Neurological: No focal neurologic deficits appreciated bilaterally. Lymphatics: No cervical LAD bilaterally. Integumentary: skin free from rashes, lesions, abrasions Vascular: +2 radial and dorsalis pedis pulses palpable bilaterally. Labs: Please see below. Assessment: This is an 85-year-old male with a past medical history significant for CKD Stage IV, COPD not on home oxygen, hypertension, hyperlipidemia, left- sided nephrolithiasis, history of TIA, who initially presented for abdominal pain and inability to urinate. 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 Patient is recently status post cystoscopy and ureteroscopy on April 21, 2016. And now, patient is status-post cystoscopy, bilateral retrograde ureteral pyelography with placement of ureteral double J- tube on April 24, 2016. Disposition: Home with gross catheter and prescription for cephalexin 500 mg PO q12 hours X 10 days until follow up appointment with Urology. Follow-up: With PCP Michael Sharif, Urology with Dr. Plaza, and with Nephrology within 1 week. Activity: As tolerated. Diet: Regular Medications on discharge: Cephalexin 500 mg tab PO q12 hours x 10 days. Albuterol Sulfate 108 Mcg/Act Aer 2 puff Inh PRN dyspnea Amlodipine besylate 5 mg tab PO daily Docusate sodium 100 mg cap PO daily Esomeprazole magnesium 40 mg cap PO daily Ferrous Sulfate 325 mg tab PO daily Gabapentin 100 mg cap PO daily Magnesium chloride (Slow-Mag 71.5-119 mg) 2 tab PO daily Oxycodone/Acetaminophen 5-325 mg 1 tab PO q6h PRN pain Simvastatin 20 mg tab PO daily Flomax 0.4 mg cap 1 cap PO daily Vitamin D3 1000 units tab 1 tab PO daily Stopped Medications: Plavix 75 mg tab PO daily Oxybutynin Chloride 5 mg tab PO q8h PRN urinary frequency Valsartan 320 mg tab PO daily Time spent on discharge: 35 minutes Vital Signs/I&Os Vital Signs Date Time Temp Pulse Resp B/P Pulse Ox O2 Delivery O2 Flow Rate FiO2 04/29/16 09:00 Room Air 04/29/16 08:06 77 128/58 04/29/16 06:00 100.8 16 94 04/25/16 05:04 2.0 I&O- Last 24 Hours up to 6 AM 04/29/16 06:00 Intake Total 2700 ml Output Total 1775 ml Balance 925 ml Laboratory Data Labs 24H Laboratory Tests 2 04/29/16 06:00: Blood Urea Nitrogen 31H, Creatinine 2.35H, Sodium Level 142, Potassium Level 4.1 , Chloride Level 109H, Carbon Dioxide Level 24, Calcium Level 7.8L, Phosphorus Level 2.7, Aspartate Amino Transf (AST/SGOT) 13L, Alanine Aminotransferase (ALT/ SGPT) 14, Alkaline Phosphatase 172H, Total Bilirubin 0.4, Total Protein 5.1L, Albumin 2.3L, Albumin/Globulin Ratio 0.82L, Anion Gap 9, White Blood Count 7.7, Red Blood Count 3.11L, Hemoglobin 9.9L, Hematocrit 29.8L, Mean Corpuscular Volume 95.9, Mean Corpuscular Hemoglobin 31.8, Mean Corpuscular Hemoglobin Concent 33.2, Red Cell Distribution Width 13.1, Platelet Count 239, Neutrophils (%) (Auto) 73.9H, Lymphocytes (%) (Auto) 12.9L, Monocytes (%) (Auto) 5.8H, Eosinophils (%) (Auto) 3.6H, Basophils (%) (Auto) 0.2, Neutrophils # (Auto) 5.7 , Lymphocytes # (Auto) 1.3L, Monocytes # (Auto) 0.4, Eosinophils # (Auto) 0.3, Basophils # (Auto) 0.0, Glomerular Filtration Rate 28.2L, Large Unclassified Cells # 0.3, Large Unclassified Cells % 3.6, Magnesium Level 1.7L CBC/BMP Laboratory Tests 04/29/16 06:00 Calcium Level 7.8 L, Phosphorus Level 2.7, Aspartate Amino Transf (AST/SGOT) 13 L, Alanine Aminotransferase (ALT/SGPT) 14, Alkaline Phosphatase 172 H, Total Bilirubin 0.4, Total Protein 5.1 L, Albumin 2.3 L, Red Blood Count 3.11 L, Mean Corpuscular Volume 95.9, Mean Corpuscular Hemoglobin 31.8, Mean Corpuscular Hemoglobin Concent 33.2, Red Cell Distribution Width 13.1, Neutrophils (%) (Auto ) 73.9 H, Lymphocytes (%) (Auto) 12.9 L, Monocytes (%) (Auto) 5.8 H, Eosinophils (%) (Auto) 3.6 H, Basophils (%) (Auto) 0.2, Neutrophils # (Auto) 5.7 , Lymphocytes # (Auto) 1.3 L, Monocytes # (Auto) 0.4, Eosinophils # (Auto) 0.3, Basophils # (Auto) 0.0 Microbiology Microbiology 04/26/16 Blood Culture - Preliminary, Resulted No Growth after 72 hours. All specime... 04/26/16 Blood Culture - Preliminary, Resulted No Growth after 72 hours. All specime... 04/24/16 Blood Culture - Final, Complete NO GROWTH AFTER 5 DAYS 04/24/16 Blood Culture - Final, Complete NO GROWTH AFTER 5 DAYS 04/28/16 MRSA Screen - Final, Complete 04/24/16 Urine Culture - Final, Complete 04/24/16 Urine Culture - Final, Complete Discharge Medications Scheduled (Esomeprazole Magnesium) 40 Mg Cap 40 MG PO DAILY (Reported) Amlodipine Besylate (Amlodipine Besylate) 5 Mg Tab 5 MG PO DAILY (Reported) Cephalexin Monohydrate (Cephalexin) 500 Mg Tab 500 MG PO Q12H Docusate Sodium (Stool Softener) 100 Mg Cap 100 MG PO DAILY (Reported) Ferrous Sulfate (Ferrous Sulfate) 325 Mg Tab 325 MG PO DAILY (Reported) Gabapentin (Gabapentin) 100 Mg Cap 100 MG PO DAILY (Reported) Magnesium Chloride (Slow-Mag 71.5-119 mg) 1 Tab Tab 2 TAB PO DAILY (Reported) Simvastatin (Simvastatin) 20 Mg Tab 20 MG PO DAILY (Reported) Tamsulosin Hydrochloride (Flomax) 0.4 Mg Cap 1 CAP PO DAILY (Reported) Vitamin D (Vitamin D3) 1,000 Units Tab 1,000 UNITS PO DAILY (Reported) Scheduled PRN Albuterol Sulfate (Proair Hfa) 108 Mcg/Act Aer 2 PUFF INH PRN DYSPNEA (Reported ) Oxycodone/Acetaminophen (Oxycodone/Acetaminophen 5-325 mg) 1 Tab Tab 1 TAB PO Q6HP PRN PRN PAIN (Reported) Allergies Coded Allergies: Amoxicillin (Verified Allergy, Unknown, 04/21/16) Clavulanic Acid (Verified Allergy, Unknown, 04/19/16) Scopolamine (Verified Adverse Reaction, Unknown, HALLUCINATIONS, 05/15/12) GME ATTESTATION GME ATTESTATION My preceptor for this patient encounter was Dr. Tai Vu, and was physically present in the building during the encounter and was fully available. As needed , all aspects of the patient interview, examination, medical decision making process, and medical care plan development were reviewed and approved by the preceptor. Preceptor is aware and concurs with the plan as stated in the body of this note and will attest to such by his/her cosignature. JERALD CRAVEN OGME-1 Apr 29, 2016 22:05
== END 2016-04-29 13:15 | disposition home health service (06) | DRG 699 ==
LOC: M ED 04-24 00:42 → M ED INP 04-24 02:39 → M PCU 04-24 18:15 → M MSPAV 04-28 13:56
PROVIDERS: ADMIT Internal Medicine; ATTEND Internal Medicine
PROC: 0T29X0Z Change Drainage Device in Ureter, External Approach (ICD-10-PCS; 2016-04-24)
PROC: 0TP98DZ Removal of Intraluminal Device from Ureter, Via Natural or Artificial Opening Endoscopic (ICD-10-PCS; principal; 2016-04-24 16:00)
DX: T83.89XA Other specified complication of genitourinary prosthetic devices, implants and grafts, initial encounter (principal); N17.9 Acute kidney failure, unspecified; I47.2 Ventricular tachycardia; E87.2 Acidosis; J90 Pleural effusion, not elsewhere classified; N18.4 Chronic kidney disease, stage 4 (severe); N28.89 Other specified disorders of kidney and ureter; K59.00 Constipation, unspecified; J44.9 Chronic obstructive pulmonary disease, unspecified; E83.51 Hypocalcemia; E87.5 Hyperkalemia; D50.9 Iron deficiency anemia, unspecified; N20.0 Calculus of kidney; Z79.899 Other long term (current) drug therapy; Z88.0 Allergy status to penicillin; Z88.8 Allergy status to other drugs, medicaments and biological substances; F17.200 Nicotine dependence, unspecified, uncomplicated; I35.0 Nonrheumatic aortic (valve) stenosis; I73.9 Peripheral vascular disease, unspecified; K21.9 Gastro-esophageal reflux disease without esophagitis

== ENCOUNTER → 2016-05-24 | Outpatient (CLI) | payer MEDICARE, OTHER ==
[~2016-05-24] MED LIST changes: +CEPH500T PO; +CIPR500T89 PO; +CIPR5SUS PO; +DITR5TAB PO; +OXYC1TAB23 PO; +PLAV75TA38 PO
[2016-05-24 17:25] LABS: MEAN CORPUSCULAR HEMOGLOBIN 30.9 pg (27.0-33.0); MEAN CORPUSCULAR HGB CONC 30.9 g/dl (32.0-36.5); RED CELL DISTRIBUTION WIDTH 13.5 % (11.5-14.5); WHITE BLOOD COUNT 6.5 K/mm3 (4.0-10.0)
[2016-05-24 17:49] LABS: CALCIUM LEVEL 8.3 MG/DL (8.8-10.2); CREATININE FOR GFR 2.89 MG/DL (0.70-1.30); GLOMERULAR FILTRATION RATE 22.2 (>35)
[2016-05-24 17:54] LABS: POTASSIUM SERUM 5.2 MEQ/L (3.5-5.1)
== END ==
LOC: M SMT 10:59
PROVIDERS: ATTEND Urology
DX: Z01.818 Encounter for other preprocedural examination (principal); N20.0 Calculus of kidney

== ENCOUNTER → 2016-06-01 | Day surgery (SDC) | payer MEDICARE, OTHER ==
[~2016-06-01] VITALS: Ht 165.1 cm; Wt 60.3 kg
[~2016-06-01] MED LIST changes: +CONRAY-60 60% 50ML VIAL (Q9961) As Ordered ONE; +LIDOCAINE 2% INJ 100 MG/5 ML SDV (FOR ANES.) As Ordered ONE; +LR 1,000 ML IV SCH; +ONDANSETRON 4MG/2ML VIAL (J2405) As Ordered ONE; +ONDANSETRON 4MG/2ML VIAL (J2405) IV PRN; +PERCOCET 5MG/325MG TAB PO PRN; +PROPOFOL 200 MG/20 ML VIAL As Ordered ONE; +dexameTHASONE 4 MG/ML 1ML VIAL (J1100) As Ordered ONE; +ePHEDrine SULFATE 25 MG/5 ML(5MG/ML) SYRINGE As Ordered ONE; +fentaNYL 100 MCG/2 ML INJECTION (J3010) As Ordered ONE; +fentaNYL 100 MCG/2 ML INJECTION (J3010) IV PRN
--- NOTE | 2016-06-01 09:32 | REP ---
Retrograde pyelogram single intraoperative fluoroscopic view: There is a left ureteral stent with the proximal and distal pigtails in satisfactory locations. A redundant portion of the stent is in the left renal pelvis, along with the proximal pigtail. Fluoroscopic exposure time is 1 minute and 14 seconds. The fluoroscopic image is performed with last image hold technology. This requires no additional radiation. Signed by Drew Obrien MD 06/01/2016 09:22 A
--- NOTE | 2016-06-01 11:11 | RO ---
DATE OF PROCEDURE: 06/01/2016 PREPROCEDURE DIAGNOSIS: Left kidney stone. POSTPROCEDURE DIAGNOSIS: Left kidney stone. PROCEDURE: Cystoscopy, left ureteroscopy with laser lithotripsy, left retrograde pyelogram with intraoperative interpretation of images, left ureteral stent exchange. SURGEON: Dr. Benigno Plaza TAG MARKER: None. ANESTHESIA: General. OPERATIVE INDICATIONS: This is an 85-year-old male who was brought to the operating room a little over a month ago for attempted removal of his left ureteral stone. He had a mid left ureteral stricture which we were not able to get past despite balloon dilating, therefore, stent was left in with goal of the ureter passively dilating. When that stent was placed, the stone was pushed back up into the kidney. He is here today for a second attempt at removing the stone. DESCRIPTION OF PROCEDURE: The patient was brought to the operating room and general anesthesia was induced. Prophylactic antibiotics were infused. He was then placed in dorsal lithotomy position, prepped and draped in the usual sterile fashion. A rigid cystoscope was inserted into the urethral meatus and advanced into the bladder. The previously placed stent was then grasped and withdrawn until the distal end was seen protruding from the urethral metaus. I then advanced a wire up the stent up into the left collecting system and the stent was then removed leaving the wire in place. The wire was then utilized to advance a ureteral access sheath up the left collecting system. Of note, the access sheath still would not go past the area of stricture that was seen previously. At the point, the stylette was removed and the wire was secured to the drape to serve as a safety wire. I then went in with the flexible ureteroscope into the access sheath and within the mid left ureter, the area of stricture was still seen but I was actually ultimately able to get the ureteroscope beyond the area of stricture and into the more proximal ureter. I was able to ultimately get into the kidney and a 1 cm stone was seen. Given the difficulty getting the scope in, I was concerned about trying to remove all of the stone fragments by going in and out with the ureteroscope. Therefore a decision was made not to try to basket the stone fragments but to just dust the stone until there were only tiny stone fragments remaining with goal that all of these fragments would then be able to pass on their own. I therefore utilized a 200 Micron laser fiber and spent a considerable amount of time on dusting the stone until there were only tiny stone fragments. Once that was done, a retrograde pyelogram performed and was negative for hydronephrosis or extravasation. At this point, the ureteroscope was removed along with the access sheath and there were no large stones seen within the ureter. I then utilized the previously placed wire to advance a #7-Icelandic x 22-32 cm JJ ureteral stent up into the left collecting system. The wire was then removed and there were adequate curl to the stent in the left renal pelvis and in the bladder. The bladder was then emptied of all fluid and this marked the conclusion of the procedure. The patient was then taken out of dorsal lithotomy position, awakened from anesthesia and transported to the recovery room in stable condition. ESTIMATED BLOOD LOSS: 0 mL. COMPLICATIONS: None. SPECIMENS: None. PLAN: The patient will followup in the clinic in a week or two for stent removal. I will get a KUB prior to removing the stent.
[2016-06-01 11:30] VITALS: BP 136/60
== END | disposition home or self-care (01) ==
LOC: M SDC 05:48
PROVIDERS: ATTEND Urology
DX: N20.0 Calculus of kidney (principal); I10 Essential (primary) hypertension; E78.5 Hyperlipidemia, unspecified; K21.9 Gastro-esophageal reflux disease without esophagitis; Z86.73 Personal history of transient ischemic attack (TIA), and cerebral infarction without residual deficits; G47.30 Sleep apnea, unspecified; Z87.891 Personal history of nicotine dependence; Z79.899 Other long term (current) drug therapy; Z79.02 Long term (current) use of antithrombotics/antiplatelets; Z88.0 Allergy status to penicillin; Z88.8 Allergy status to other drugs, medicaments and biological substances
CPT/HCPCS: 52356; 74420; C1726; C2617; J0690; J1100; J2405; J3010; Q9961

== ENCOUNTER → 2016-06-14 | Outpatient (CLI) | payer MEDICARE, OTHER ==
[~2016-06-14] MED LIST changes: -CONRAY-60 60% 50ML VIAL (Q9961) As Ordered ONE; -LIDOCAINE 2% INJ 100 MG/5 ML SDV (FOR ANES.) As Ordered ONE; -LR 1,000 ML IV SCH; -ONDANSETRON 4MG/2ML VIAL (J2405) As Ordered ONE; -ONDANSETRON 4MG/2ML VIAL (J2405) IV PRN; -PERCOCET 5MG/325MG TAB PO PRN; -PROPOFOL 200 MG/20 ML VIAL As Ordered ONE; -dexameTHASONE 4 MG/ML 1ML VIAL (J1100) As Ordered ONE; -ePHEDrine SULFATE 25 MG/5 ML(5MG/ML) SYRINGE As Ordered ONE; -fentaNYL 100 MCG/2 ML INJECTION (J3010) As Ordered ONE; -fentaNYL 100 MCG/2 ML INJECTION (J3010) IV PRN
--- NOTE | 2016-06-14 17:29 | REP ---
KUB: Single view: History: Kidney calculus. Comparison KUB study: 11/09/2015. Comparison retrograde ureterogram 06/01/[address] study 04/27/2016. Findings: A double pigtail ureteral stent is noted in place on the left. Stent position is changed compared to 04/27/2016 prior study. The proximal end of the stent appears redundant. The previously noted intrarenal calculus which measured 13 mm in diameter is not apparent. Bowel gas pattern is normal. There are clips in right upper quadrant. Impression: Double pigtail left ureteral stent in place. No urinary tract calculus is visible. Signed by Sheng Harry MD 06/15/2016 08:05 A
== END ==
LOC: M RAD 12:32
PROVIDERS: ATTEND Urology
DX: Z01.818 Encounter for other preprocedural examination (principal); N20.0 Calculus of kidney

== ENCOUNTER → 2016-07-12 | Outpatient (REF) | payer MEDICARE, OTHER ==
[2016-07-13 16:12] LABS: PERCENT SATURATION 27.5 % (19.7-37.4)
== END ==
LOC: M LAB REF 16:45
PROVIDERS: ATTEND Internal Medicine Nephrology
DX: D50.9 Iron deficiency anemia, unspecified (principal)

== ENCOUNTER → 2016-07-27 | Outpatient (CLI) | payer MEDICARE, OTHER ==
--- NOTE | 2016-07-27 11:28 | REP ---
RENAL AND BLADDER ULTRASOUND: Real-time sonographic evaluation of kidneys and urinary bladder performed. Right kidney measures 9.0 x 3.9 x 3.9 cm and left kidney 7.5 x 3.2 x 3.6 cm. There is no hydronephrosis bilaterally. Mildly complex cyst in the mid to upper right kidney measures 1.2 x 0.9 x 1.5 cm. There is a cyst in the lower pole of the right kidney 1.0 x 0.5 x 1.0 cm. There is a cyst in the lower pole of the left kidney measuring 1 cm in diameter. Focal echogenic structure lower pole left kidney may represent a stone measuring 1.1 cm in diameter. Urinary bladder measures 3.4 x 6.9 x 4.9 cm for a total volume of 59 mL. No gross abnormality is seen in the bladder. The prostate measures 3.2 x 2.8 x 4.0 cm. Total volume is 19.1 mL. Ureteral jets could not be seen in the urinary bladder with Doppler color evaluation. IMPRESSION: No hydronephrosis. Bilateral renal cysts. Probable calculus lower pole left kidney. Signed by Drew Fry MD 07/28/2016 05:08 P
== END ==
LOC: M SMT 09:54
PROVIDERS: ATTEND Urology
DX: N13.5 Crossing vessel and stricture of ureter without hydronephrosis (principal)

== ENCOUNTER 2016-09-06 07:14 | Outpatient (CLI) | payer MEDICARE, OTHER ==
--- NOTE | 2016-09-05 12:26 | CR ---
PREOPERATIVE EVALUATION AND CONSULTATION. DATE OF CONSULTATION: 08/23/2016 REQUESTING PHYSICIAN: Dr. Sebas Merino. PLAN/PROCEDURE: Colonoscopy at [facility] on 09/06/2016. INDICATION: History of adenomatous polyps of the colon. HISTORY OF PRESENT ILLNESS (HPI): This is a very pleasant 85-year-old gentleman with extensive medical problems who will be undergoing a colonoscopy. The patient has stage IV chronic kidney disease and follows closely with nephrology. He has chronic pulmonary obstructive disease (COPD), emphysema and sees Dr. Bourgeois of pulmonology. He recently had a left uroscopy to remove a kidney stone. The patient does have a murmur with some moderate aortic stenosis but no critical findings on echocardiogram on 04/01/2016. He has continued to smoke cigarettes, understands the dangers, does use nicotine lozenges on occasions and fortunately is having no chest pain whatsoever. No other indications of acute coronary issues. He does have known peripheral vascular disease with a history of renal artery stenting and I do have concerns he may have sleep apnea and will be monitored closely. He does have a history of a transient ischemic attack (TIA) and has been on Plavix for this specifically, not for any cardiac issues. Other than that, he is overall doing well. He had some increased urination since surgery, does use Flomax. He has regular gastrointestinal reflux disease (GERD) symptoms and is on omeprazole which he has been unable to wean. He takes 1000 mg of vitamin D for deficiency, Colace for stools. Otherwise his chronic issues appear to be stable. PAST MEDICAL HISTORY: 1. Chronic kidney disease Stage IV. 2. Chronic pulmonary obstructive disease/emphysema with continued tobacco use. Sees Dr. Bourgeois. 3. Obstructive sleep apnea (JUAN) with history of BiPAP-not using. 4. History of TIA on Plavix. 5. Peripheral vascular disease. 6. Aortic valve sclerosis-monitored on echocardiogram every two years. 7. Adenomatous polyps of the colon. 8. Chronic anemia. 9. Vitamin D deficiency. 10. Low magnesium. PAST SURGICAL HISTORY: 1. Bilateral cataract extractions. 2. Large sebaceous cyst removed from his back. 3. Cholecystectomy with Dr. Merino in 2006. 4. Appendectomy as a child. 5. History of colonoscopies with Dr. Merino in the past. ALLERGIES: The patient is unable to take SCOPOLAMINE, AUGMENTIN and LEVAQUIN. MEDICATIONS: - Plavix 75 mg daily - omeprazole 40 mg daily - vitamin D 1000 units daily - Colace 100 mg daily - HFA ProAir four times a day - Slow-Mag two tablets daily - Flomax 0.4 mg by mouth daily - simvastatin 20 mg daily - ferrous sulfate 325 daily - gabapentin 100 mg daily SOCIAL HISTORY: The patient lives locally with his , Carlotta. They have two children, Yassine iBrd who lives locally and their son David who lives in [place]. 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 He does smoke about one half pack per day, has done this for many years and has no interest in quitting. FAMILY HISTORY: Father of a heart attack, mother of an acute coronary syndrome of some sort as well. REVIEW OF SYSTEMS: As per history of medical illness (HPI) otherwise ten system review is completely negative. He is having no active evidence of cardiac issues , no active wheezing or other evidence of pulmonary issues, he does need a BiPAP and is not using it, understands the risks, however. PHYSICAL EXAMINATION: VITAL SIGNS: Weight 132 pounds, height is 5 foot, 5 inches, Body mass index (BMI ) is 22. Oxygen saturation 97% on room air. Blood pressure 140/68, heart rate 70. GENERAL: The patient appears at baseline health. No acute distress. nontoxic. Alert and oriented times three. HEENT: Within normal limits. Oral cavity, oropharynx are benign. Pupils equal, round, and reactive to light and accommodation. Extraocular movements appear intact. No lesions of lid or conjunctivae. NECK: Supple. No lymphadenopathy, thyromegaly. HEART: Regular rate and rhythm. S1, S2. 2/6 systolic ejection murmur. ABDOMEN: Soft, nontender, nondistended. EXTREMITIES: No clubbing, cyanosis or edema. Ankles are thin. IMPRESSION: 1. Preoperative evaluation and consultation. At this point in time consultation is for a low risk procedure of a colonoscopy. However, this patient will need close monitoring due to his known obstructive sleep apnea (JUAN) as well as emphysema. He will not know; however, if he has an exacerbation prior to the procedure which could delay that. Fortunately there are no current issues; however he does smoke and has uncontrolled blood pressure. He will contact Dr. Merino's office for anticoagulation, it does appear that he needs to stop his Plavix. I believe that at this point he is optimized to undergo this procedure although he has extensive medical problems. 2. Personal history of adenomatous polyps and iron deficiency anemia-colonoscopy is appropriate at this point in time to followup on these issues. 3. Chronic pulmonary obstructive disease (COPD) with emphysema. No exacerbation at this point in time but will let us know if that becomes an issue. 4. Recent renal calculi. The patient has undergone surgical removal with Dr. Plaza and will continue following with him. 5. Nicotine use. We discussed this in great detail. He does use nicotine lozenges. I counseled him extensively today and he declines quitting but no notes he will cut down. I did discuss with him the importance of quitting completely. 6. Chronic kidney disease. The patient had a stent in the past. GRF is approximately 22 and what appears to be a new baseline creatinine of 228. 7. Gastrointestinal reflux disease (GERD). The patient is unable to wean off the omeprazole, did try, will monitor. 8. Vitamin D deficiency. Continue to take supplements, will continue to monitor. 9. History of transient ischemic attacks (TIAs). The patient is on Plavix, again this may be held prior to intervention. 10. History of memory impairment. This has been mild. Today he is doing quite well. This has been an issue in the past. 11. Aortic valve sclerosis. This is moderate, should not cause significant issues since he has a normal ejection fraction (EF) on the monitor. 12. Obstructive sleep apnea (JUAN). This puts the patient at significant risk. He understands this and does not want to use the BiPAP as previously. This is to be monitored closely perioperatively. I am going to see the patient as scheduled. Will get a CBC and complete metabolic profile (CMP) on the way out. It is notable that he sees pulmonology, nephrology and urology on a regular basis now. If there are any new changes between now and the surgical date the patient pledges to call me and let me know so will be sure to optimize his care. If he has any problems or concerns he will let us know. cc: Sebas Merino MD MTDJessica
[~2016-09-06 07:14] MED LIST changes: +CIPR-249 PO; -CIPR500T89 PO; +LR 1,000 ML IV SCH; +PLAV1TAB2 PO; -PLAV75TA38 PO; -PROA1AER INH; +PROAAER10 INH
[2016-09-06] MEDS ORDERED: LIDOCAINE 2% INJ 100 MG/5 ML SDV (FOR ANES.) As Ordered ONE (07:17)
[2016-09-06] MEDS ORDERED: PROPOFOL 200 MG/20 ML VIAL As Ordered ONE ×2 (07:17→07:18)
--- NOTE | 2016-09-06 09:43 | ROOR ---
Patient Name: Pardeep Stanley Procedure Date: 09/06/2016 8:41 AM Date of : 1930 Age: 85 Room: [facility] Gender: Male Note Status: Finalized Procedure: Colonoscopy Indications: High risk colon cancer surveillance: Personal history of adenoma less than 10 mm in size, Last colonoscopy: June 2011 Providers: Sebas Merino MD Referring MD: Michael Jeronimo MD Requesting Provider: Medicines: Monitored Anesthesia Care Complications: No immediate complications. Procedure: Pre-Anesthesia Assessment: - Prior to the procedure, a History and Physical was performed, and patient medications and allergies were reviewed. The patient is competent. The risks and benefits of the procedure and the sedation options and risks were discussed with the patient. All questions were answered and informed consent was obtained. Patient identification and proposed procedure were verified by the physician, the nurse and the anesthesiologist in the procedure room. Mental Status Examination: alert and oriented. Airway Examination: normal oropharyngeal airway and neck mobility. CV Examination: regular rate and rhythm. Prophylactic Antibiotics: The patient does not require prophylactic antibiotics. Prior Anticoagulants: The patient has taken Plavix (clopidogrel). ASA Grade Assessment: III - A patient with severe systemic disease. After reviewing the risks and benefits, the patient was deemed in satisfactory condition to undergo the procedure. The anesthesia plan was to use monitored anesthesia care (MAC). Immediately prior to administration of medications, the patient was re-assessed for adequacy to receive sedatives. The heart rate, respiratory rate, oxygen saturations, blood pressure, adequacy of pulmonary ventilation, and response to care were monitored throughout the procedure. The physical status of the patient was re-assessed after the procedure. The Colonoscope was introduced through the anus and advanced to the cecum, identified by appendiceal orifice and ileocecal valve. The was introduced through the and advanced to. The colonoscopy was somewhat difficult due to poor bowel prep. The patient tolerated the procedure well. The quality of the bowel preparation was poor. Findings: The perianal and digital rectal examinations were normal. A 4 mm polyp was found in the cecum. The polyp was sessile. The polyp was removed with a hot biopsy forceps. Resection and retrieval were complete. Estimated blood loss: none. Three sessile polyps were found in the hepatic flexure and ascending colon. The polyps were 3 to 5 mm in size. These polyps were removed with a hot biopsy forceps. Resection and retrieval were complete. Estimated blood loss: none. A few medium-mouthed diverticula were found in the sigmoid colon. Impression: - Preparation of the colon was poor. - One 4 mm polyp in the cecum, removed with a hot biopsy forceps. Resected and retrieved. - Three 3 to 5 mm polyps at the hepatic flexure and in the ascending colon, removed with a hot biopsy forceps. Resected and retrieved. - Diverticulosis in the sigmoid colon. Recommendation: - Discharge patient to home. - Resume previous diet. - Continue present medications. - Await pathology results. - Telephone endoscopist for pathology results in 1 week. Sebas Merino MD 09/06/2016 9:43:22 AM Number of Addenda: 0 Note Initiated On: 09/06/2016 8:41 AM Estimated Blood Loss: Estimated blood loss: none.
[2016-09-06 09:50] VITALS: BP 139/72
== END 2016-09-06 10:02 | disposition home or self-care (01) ==
LOC: M OPP 07:14
PROVIDERS: ATTEND Surgery
DX: Z12.11 Encounter for screening for malignant neoplasm of colon (principal); D12.0 Benign neoplasm of cecum; D12.2 Benign neoplasm of ascending colon; D12.3 Benign neoplasm of transverse colon; K57.30 Diverticulosis of large intestine without perforation or abscess without bleeding; Z86.010 Personal history of colon polyps; E78.5 Hyperlipidemia, unspecified; J44.9 Chronic obstructive pulmonary disease, unspecified; G47.30 Sleep apnea, unspecified; N40.1 Benign prostatic hyperplasia with lower urinary tract symptoms; Z87.442 Personal history of urinary calculi; I73.9 Peripheral vascular disease, unspecified; I35.0 Nonrheumatic aortic (valve) stenosis; Z86.73 Personal history of transient ischemic attack (TIA), and cerebral infarction without residual deficits; Z88.8 Allergy status to other drugs, medicaments and biological substances; Z88.0 Allergy status to penicillin; Z79.899 Other long term (current) drug therapy; Z79.01 Long term (current) use of anticoagulants

== ENCOUNTER → 2016-10-12 | Outpatient (REF) | payer MEDICARE, OTHER ==
[~2016-10-12] MED LIST changes: -LR 1,000 ML IV SCH
[2016-10-12 14:31] LABS: PERCENT SATURATION 73.9 % (19.7-50.0)
== END ==
LOC: M LAB REF 13:00
PROVIDERS: ATTEND Internal Medicine Nephrology
DX: D50.9 Iron deficiency anemia, unspecified (principal)

== ENCOUNTER 2017-04-02 10:56 | Emergency (ER) | payer MEDICARE, OTHER ==
[2017-04-02] MEDS: NS 500 ML IV (11:50)
[2017-04-02 11:53] LABS: INFLUENZA A AMPLIFICATION NEGATIVE (NEGATIVE); INFLUENZA B AMPLIFICATION POSITIVE (NEGATIVE)
[2017-04-02 12:04] LABS: BASO % 0.1 % (0.0-1.0); EOS % 0.1 % (0.0-3.0); HEMATOCRIT 31.5 % (42.0-52.0); HEMOGLOBIN 10.4 g/dl (14.0-18.0); IMMATURE GRANULOCYTE % 0.5 % (0-3.0); LYMPH # 0.8 10^3/uL (1.5-4.5); LYMPH % 5.7 % (24.0-44.0); MEAN CORPUSCULAR HEMOGLOBIN 31.8 pg (27.0-33.0); MEAN CORPUSCULAR VOLUME 96.3 fl (80.0-96.0); MONO # 0.9 10^3/uL (0.0-0.8); MONO % 6.5 % (0.0-5.0); NEUTROPHILS # 11.7 10^3/uL (1.8-7.7); NEUTROPHILS % 87.1 % (36.0-66.0); PLATELET COUNT, AUTOMATED 201 10^3/uL (150-450); RED BLOOD COUNT 3.27 10^6/uL (4.30-6.10); RED CELL DISTRIBUTION WIDTH 13.5 % (11.5-14.5); WHITE BLOOD COUNT 13.5 10^3/uL (4.0-10.0)
[2017-04-02 12:19] LABS: ALBUMIN 3.4 GM/DL (3.2-5.2); ALKALINE PHOSPHATASE 187 U/L (45-117); ALT/SGPT 27 U/L (12-78); ANION GAP 8 MEQ/L (8-16); AST/SGOT 32 U/L (7-37); BILIRUBIN,TOTAL 0.5 MG/DL (0.2-1.0); BLOOD UREA NITROGEN 35 MG/DL (7-18); CALCIUM LEVEL 8.1 MG/DL (8.8-10.2); CARBON DIOXIDE LEVEL 21 MEQ/L (21-32); CHLORIDE LEVEL 113 MEQ/L (98-107); CREATININE FOR GFR 2.69 MG/DL (0.70-1.30); GLOMERULAR FILTRATION RATE 24.1 (>35); GLUCOSE, FASTING 93 MG/DL (70-100); POTASSIUM SERUM 4.8 MEQ/L (3.5-5.1); SODIUM LEVEL 142 MEQ/L (136-145); TOTAL PROTEIN 6.8 GM/DL (6.4-8.2)
[2017-04-02] MEDS: methylPREDNISolone INJ 125 MG/2 ML VIAL (J2930) IV (13:30)
[2017-04-02] MEDS: IPRATROPIUM 0.5MG/ALBUTEROL 2.5MG INH SOL UD 3ML (DUONEB)(J7620) NEB (13:31)
== END 2017-04-02 13:55 | disposition home or self-care (01) ==
LOC: M ED 10:56
DX: J10.1 Influenza due to other identified influenza virus with other respiratory manifestations (principal); J44.9 Chronic obstructive pulmonary disease, unspecified; I10 Essential (primary) hypertension; E78.5 Hyperlipidemia, unspecified; N40.0 Benign prostatic hyperplasia without lower urinary tract symptoms; Z86.73 Personal history of transient ischemic attack (TIA), and cerebral infarction without residual deficits; Z88.0 Allergy status to penicillin; Z88.8 Allergy status to other drugs, medicaments and biological substances; Z79.899 Other long term (current) drug therapy; Z79.02 Long term (current) use of antithrombotics/antiplatelets
CPT/HCPCS: J2930

== ENCOUNTER → 2017-04-10 | Outpatient (REF) | payer MEDICARE, OTHER | LOC: M LAB REF 17:10 | DX: R21 Rash and other nonspecific skin eruption (principal) | CPT/HCPCS: 87070 ==

== ENCOUNTER 2017-08-08 09:02 | Emergency (ER) | payer MEDICARE, OTHER ==
[2017-08-08 09:46] LABS: BASO % 0.3 % (0.0-1.0); EOS # 0.2 10^3/uL (0.0-0.50); EOS % 2.2 % (0.0-3.0); HEMATOCRIT 35.1 % (42.0-52.0); HEMOGLOBIN 11.8 g/dl (13.5-17.5); IMMATURE GRANULOCYTE % 0.5 % (0-3.0); LYMPH # 0.9 10^3/uL (1.5-4.5); LYMPH % 12.2 % (24.0-44.0); MEAN CORPUSCULAR HEMOGLOBIN 32.6 pg (27.0-33.0); MEAN CORPUSCULAR HGB CONC 33.6 g/dl (32.0-36.5); MONO # 0.5 10^3/uL (0.0-0.8); MONO % 6.9 % (0.0-5.0); NEUTROPHILS # 5.7 10^3/uL (1.8-7.7); NEUTROPHILS % 77.9 % (36.0-66.0); PLATELET COUNT, AUTOMATED 172 10^3/uL (150-450); RED BLOOD COUNT 3.62 10^6/uL (4.30-6.10); RED CELL DISTRIBUTION WIDTH 15.4 % (11.5-14.5); WHITE BLOOD COUNT 7.3 10^3/uL (4.0-10.0)
[2017-08-08 09:53] LABS: APPEARANCE, URINE CLEAR (CLEAR); BACTERIA, URINE AUTO NEGATIVE (NEGATIVE); BILIRUBIN, URINE AUTO NEGATIVE (NEGATIVE); BLOOD, URINE BLOOD NEGATIVE (NEGATIVE); COLOR, URINE YELLOW (YELLOW); GLUCOSE, URINE (UA) AUTO NEGATIVE (NEGATIVE); KETONE, URINE AUTO NEGATIVE (NEGATIVE); LEUKOCYTE ESTERASE, URINE AUTO NEGATIVE (NEGATIVE); MUCUS, URINE SMALL (NEGATIVE); NITRITE, URINE AUTO NEGATIVE (NEGATIVE); PROTEIN, URINE AUTO NEGATIVE (NEGATIVE); RBC, URINE AUTO 1 /HPF (0-3); SPECIFIC GRAVITY URINE AUTO 1.015 (1.002-1.035); SQUAMOUS EPITHELIAL CELL UR AU 0 /HPF (0-6); UROBILINOGEN, URINE AUTO 0.2 mg/dL (0.0-2.0); WBC, URINE AUTO 0 /HPF (0-3)
[2017-08-08 10:14] LABS: ANION GAP 8 MEQ/L (8-16); BLOOD UREA NITROGEN 28 MG/DL (7-18); CALCIUM LEVEL 8.4 MG/DL (8.8-10.2); CARBON DIOXIDE LEVEL 26 MEQ/L (21-32); CHLORIDE LEVEL 109 MEQ/L (98-107); CREATININE FOR GFR 2.55 MG/DL (0.70-1.30); GLOMERULAR FILTRATION RATE 25.6 (>35); GLUCOSE, FASTING 91 MG/DL (70-100); POTASSIUM SERUM 5.1 MEQ/L (3.5-5.1); SODIUM LEVEL 143 MEQ/L (136-145)
== END 2017-08-08 11:11 | disposition home or self-care (01) ==
LOC: M ED 09:02
DX: B02.29 Other postherpetic nervous system involvement (principal); D64.9 Anemia, unspecified; N18.9 Chronic kidney disease, unspecified; I12.9 Hypertensive chronic kidney disease with stage 1 through stage 4 chronic kidney disease, or unspecified chronic kidney disease; J44.9 Chronic obstructive pulmonary disease, unspecified; F17.200 Nicotine dependence, unspecified, uncomplicated; Z88.0 Allergy status to penicillin; Z88.8 Allergy status to other drugs, medicaments and biological substances; Z79.01 Long term (current) use of anticoagulants; Z79.899 Other long term (current) drug therapy; Z86.711 Personal history of pulmonary embolism; Z87.442 Personal history of urinary calculi; Z86.19 Personal history of other infectious and parasitic diseases
CPT/HCPCS: 71046

== ENCOUNTER → 2017-08-25 | Outpatient (REF) | payer MEDICARE, OTHER ==
[2017-08-29 00:07] LABS: Lyme Disease IgG/IgM Antibodie <0.91 ISR (0.00-0.90); Lyme Disease IgM Ab Quantitati <0.80 index (0.00-0.79)
== END ==
LOC: M LAB REF 17:09
DX: Z11.9 Encounter for screening for infectious and parasitic diseases, unspecified (principal)
CPT/HCPCS: 86617

== ENCOUNTER 2018-06-07 12:21 | Emergency (ER) | payer MEDICARE, OTHER ==
[~2018-06-07] VITALS: Ht 165.1 cm; Wt 59.1 kg
[~2018-06-07 12:21] MED LIST changes: -/AMLO25TA; -AMLO5TAB2 PO; +AMLO5TAB6 PO; +COMP1MIS3 XX; +FLOM0.4C39 PO; -FLOM5CAP PO; +GABA-1171 PO; -GABA-279 PO; +IPRA0.00 IN; +IPRA0.00 NEB; +NORV2TAB; +PRED20TA PO; +SODI325T9 PO; +TAMI30CA PO; -VALS1TAB48 PO; +VALS1TAB68 PO
[2018-06-07] MEDS ORDERED: ALBU83IN (12:33)
[2018-06-07] MEDS ORDERED: NS 1,000 ML IV ONE (13:15)
--- NOTE | 2018-06-07 13:50 | REP ---
Chest two views HISTORY: Abdominal pain Comparison: 08/08/2017 The lungs are hyperinflated. Bibasilar scarring is present. There is bilateral apical pleural thickening. The heart is normal in size. The pulmonary vasculature is normal in appearance. The bony structure is intact. IMPRESSION: No acute disease. Electronically Signed by Garcia Mai MD 06/07/2018 01:42 P
[2018-06-07 13:52] LABS: BASO % 0.3 % (0.0-1.0); EOS # 0.1 10^3/uL (0.0-0.50); EOS % 0.4 % (0.0-3.0); HEMATOCRIT 37.9 % (42.0-52.0); HEMOGLOBIN 12.4 g/dl (13.5-17.5); LYMPH # 1.2 10^3/uL (1.5-4.5); LYMPH % 9.9 % (24.0-44.0); MEAN CORPUSCULAR HEMOGLOBIN 31.5 pg (27.0-33.0); MEAN CORPUSCULAR HGB CONC 32.7 g/dl (32.0-36.5); MEAN CORPUSCULAR VOLUME 96.2 fl (80.0-96.0); MONO % 8.4 % (0.0-5.0); NEUTROPHILS # 9.4 10^3/uL (1.8-7.7); NEUTROPHILS % 80.7 % (36.0-66.0); PLATELET COUNT, AUTOMATED 247 10^3/uL (150-450); RED BLOOD COUNT 3.94 10^6/uL (4.30-6.10); WHITE BLOOD COUNT 11.7 10^3/uL (4.0-10.0)
[2018-06-07] MEDS ORDERED: IPRATROPIUM 0.5MG/ALBUTEROL 2.5MG INH SOL UD 3ML (DUONEB)(J7620) NEB ONE (14:00)
[2018-06-07 14:13] LABS: ALBUMIN 3.9 GM/DL (3.2-5.2); ALT/SGPT 22 U/L (12-78); BILIRUBIN,DIRECT 0.2 MG/DL (0.0-0.2); BILIRUBIN,TOTAL 0.6 MG/DL (0.2-1.0); BLOOD UREA NITROGEN 38 MG/DL (7-18); CALCIUM LEVEL 8.3 MG/DL (8.8-10.2); CARBON DIOXIDE LEVEL 24 MEQ/L (21-32); CHLORIDE LEVEL 107 MEQ/L (98-107); CREATININE FOR GFR 2.82 MG/DL (0.70-1.30); GLOMERULAR FILTRATION RATE 22.7 (>35); GLUCOSE, FASTING 106 MG/DL (70-100); LIPASE 176 U/L (73-393); MAGNESIUM LEVEL 2.4 MG/DL (1.8-2.4); PHOSPHORUS LEVEL 3.6 MG/DL (2.5-4.9); POTASSIUM SERUM 4.6 MEQ/L (3.5-5.1); SODIUM LEVEL 137 MEQ/L (136-145); TOTAL PROTEIN 6.9 GM/DL (6.4-8.2); URIC ACID 6.7 MG/DL (3.5-7.2)
[2018-06-07 14:38] LABS: CK-MB VALUE MASS < 1.0 NG/ML (<3.6); CPK CREATINE PHOSPHOKINASE 66 U/L (39-308); MB/CK RELATIVE INDEX 1.52 (< OR =4); NT-PRO BNP 519 PG/ML (<450); TROPONIN I < 0.02 NG/ML (< 0.10)
[2018-06-07] MEDS ORDERED: PRED20TA PO (15:01)
[2018-06-07] MEDS ORDERED: AZIT-12 PO (15:40)
[2018-06-07 16:00] VITALS: BP 137/65
--- NOTE | 2018-06-07 22:21 | ECGEPIP ---
Stationary ECG Study [facility] - ED Test Date: 2018-06-07 Pat Name: SUKHDEV HADDAD Department: Room: - Gender: M Critical Care Unit Manager: maritza : 1930 Requested By: SARAN Harris PA-C Order Number: [id number] Reading MD: Isabel Gonzalez Measurements Intervals [place] Rate: 81 P: 70 [place]: 160 QRS: 41 QRSD: 86 T: 63 QT: 363 QTc: 422 Interpretive Statements SINUS RHYTHM WITH OCCASIONAL SUPRAVENTRICULAR PREMATURE COMPLEXES NSTTW ABNORMALITY SIMILAR 04/24/16 Electronically Signed On 06-07-2018 22:20:58 EDT by Isabel Gonzalez
== END 2018-06-07 16:02 | disposition home or self-care (01) ==
LOC: M ED 12:21
DX: J44.1 Chronic obstructive pulmonary disease with (acute) exacerbation (principal); E86.0 Dehydration; R09.81 Nasal congestion; N18.4 Chronic kidney disease, stage 4 (severe); I12.9 Hypertensive chronic kidney disease with stage 1 through stage 4 chronic kidney disease, or unspecified chronic kidney disease; E78.5 Hyperlipidemia, unspecified; R01.1 Cardiac murmur, unspecified; Z79.899 Other long term (current) drug therapy; Z79.02 Long term (current) use of antithrombotics/antiplatelets; Z88.0 Allergy status to penicillin; Z88.8 Allergy status to other drugs, medicaments and biological substances; F17.210 Nicotine dependence, cigarettes, uncomplicated

== ENCOUNTER 2018-09-10 22:17 | Day surgery (SDC) | payer MEDICARE, OTHER ==
[~2018-09-10] VITALS: Ht 165.1 cm; Wt 59.1 kg
[~2018-09-10 22:17] MED LIST changes: +ALBU83IN; +AZIT-12 PO; +MM S100C PO; -STOO100C PO
[2018-09-10] MEDS ORDERED: GLUCAGON FOR INJ 1 MG VIAL (J1610) IV STA (23:07)
--- NOTE | 2018-09-11 02:28 | REPVR ---
EXAM: CT Neck Without Contrast EXAM DATE/TIME: 09/11/2018 12:51 AM CLINICAL HISTORY: 87 years old, male; Other: F. B. In throat; Additional info: ? Fb/ unable to swallow TECHNIQUE: Imaging protocol: Axial computed tomography images of the neck without contrast. Coronal and sagittal reformatted images were created and reviewed. Radiation optimization: All CT scans at this facility use at least one of these dose optimization techniques: automated exposure control; mA and/or kV adjustment per patient size (includes targeted exams where dose is matched to clinical indication); or iterative reconstruction. COMPARISON: No relevant prior studies available. FINDINGS: Nasopharynx: Limited visualization which appears grossly normal. Oropharynx: Normal. No significant tonsillar enlargement. Hypopharynx: Normal. Larynx: Normal. Normal epiglottis. Retropharyngeal space: Normal. Submandibular/Parotid glands: Normal. Glands are normal in size. Thyroid: Normal. No enlarged or calcified nodules. Lymph nodes: Normal. No lymphadenopathy. Trachea: Visualized trachea is unremarkable. Esophagus: Food material which fills the lumen of the esophagus at the level of the thoracic inlet and is probably impacted. The esophagus below is collapsed but is mildly gas distended cephalad. Lungs: Biapical bullous changes with interstitial prominence. Bones/joints: Degenerative changes of the cervical spine with right neural foraminal stenosis at C3-C4 and C4-C5. Soft tissues: Normal. No significant soft tissue swelling. IMPRESSION: 1. Impacted food material in the esophagus at the level of the thoracic inlet with mild gas distention of the esophagus proximally and collapse of the esophagus distally. 2. Biapical bullous changes with interstitial prominence. 3. Degenerative changes of the cervical spine, greatest from C3-C5. Electronically signed by: Pardeep Chi On 09/11/2018 02:28:07 AM
[2018-09-11] MEDS ORDERED: NS 1,000 ML IV ONE (02:30)
[2018-09-11 03:02] LABS: HEMATOCRIT 35.4 % (42.0-52.0); HEMOGLOBIN 11.7 g/dl (13.5-17.5); MEAN CORPUSCULAR HEMOGLOBIN 32.7 pg (27.0-33.0); MEAN CORPUSCULAR HGB CONC 33.1 g/dl (32.0-36.5); MEAN CORPUSCULAR VOLUME 98.9 fl (80.0-96.0); PLATELET COUNT, AUTOMATED 199 10^3/uL (150-450); RED BLOOD COUNT 3.58 10^6/uL (4.30-6.10); WHITE BLOOD COUNT 11.6 10^3/uL (4.0-10.0)
[2018-09-11 03:40] LABS: ALBUMIN 3.4 GM/DL (3.2-5.2); BILIRUBIN,DIRECT 0.1 MG/DL (0.0-0.2); BILIRUBIN,TOTAL 0.3 MG/DL (0.2-1.0); CALCIUM LEVEL 8.4 MG/DL (8.8-10.2); CREATININE FOR GFR 2.41 MG/DL (0.70-1.30); GLOMERULAR FILTRATION RATE 27.3 (>35); POTASSIUM SERUM 4.7 MEQ/L (3.5-5.1); TOTAL PROTEIN 6.2 GM/DL (6.4-8.2)
[2018-09-11] MEDS ORDERED: AMLO10TA5 PO (05:55)
[2018-09-11] MEDS ORDERED: VITA100016 PO (05:55)
[2018-09-11] MEDS ORDERED: ROCURONIUM BROMIDE 50 MG/5 ML VIAL As Ordered ONE ×2 (06:04→06:08)
[2018-09-11] MEDS ORDERED: MIDAZOLAM INJ 2 MG/2 ML VIAL (J2250) As Ordered ONE (06:04)
[2018-09-11] MEDS ORDERED: fentaNYL 100 MCG/2 ML INJECTION (J3010) As Ordered ONE (06:04)
[2018-09-11] MEDS ORDERED: LIDOCAINE 2% INJ 100 MG/5 ML SDV (FOR ANES.) As Ordered ONE ×2 (06:04→06:08)
[2018-09-11] MEDS ORDERED: PROPOFOL 200 MG/20 ML VIAL As Ordered ONE ×2 (06:04→06:08)
--- NOTE | 2018-09-11 06:21 | CR.PDOC ---
General Date of Consultation: Sep 11, 2018 Referring Provider: GILBERT HENNESSY PA-C Attending Physician: DALIA RUBALCAVA MD Consultation Reason for consult: Food impaction/ dysphagia. 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 GI consulted for the same. Patient reports having Difficulty swallowing since trying to eat Steak yesterday night, for which patient tried to drink water and could not tolerate. Patient upon further questioning, reports over the last one year had flu and zoster, and lost lot of weight due to the sickness but denies any change in appetite and currently his weight is stable. Pertinent negative GI symptoms: Patient denies fever, sick contacts, recent travel, nausea, vomiting, diarrhea, abdominal pain, loss of appetite, early satiety. No history of hematemesis, melena or hematochezia. Patient reports regular bowel movements. Review of Systems: GI: as stated above CVS: No chest pain, No palpitations, No leg swelling. RS: No Shortness of breath, No Wheezing, no cough RETAIL DEPARTMENT RESET: No dizziness, No motor weakness, No sensory problems Hematology: No bruising, No gum bleeding, Musculoskeletal: No joint pain, ambulating well. Skin: No rash : No hematuria, No burning sensation of the urine ENT: No ear discharge/ pain, No dysphagia. Eyes: No photophobia. Jaundice Home medications: reviewed. Antithrombotic agents - On plavix -- last dose yesterday morning. Medical h/o: As above. Surgical h/o: Cholecystectomy Social h/o: Alcohol - rarely, smoking - active smoker for almost 70 years, IVDA/ drugs -- denies. Family h/o of GI cancers - None Prior Endoscopies: -- EGD - none. --- Colonoscopy -- Prior screening Colonoscopy in 2011 -- by Dr. Merino - noted one 3mm polyp. removed. Prior GI evaluations: None in [facility]. Exam: Vitals: reviewed General: Alert and oriented x 3, not in distress HEENT: Edentulous, NO pallor, no icterus. Normal oropharynx, NO cervical lymph nodes. Chest: symmetric with bilateral clear air entry, CVS: S1, S2 heard, normal, Abdomen: non-distended, soft, non-tender, no palpable masses, normal bowel sounds heard. Rectal exam: Patient refused. Extremities: no pedal edema, pulses palpable. RETAIL DEPARTMENT RESET: no focal motor or sensory deficits. Moves all extremities Skin: no rash. Labs: reviewed. Imaging: reviewed. Impression: - Food impaction in esophagus due to poor mastication ( No teeth),. Need to rule out mechanical obstruction/ stricture. Recommendations: - Patient and his who is at bedside are educated about the test results, possible differential diagnoses and All questions answered. - NPO - Patient is schedule for urgent EGD. - The procedure, indications, risks (bleeding, perforation, infection, hypotension, respiratory depression, allergy, need for endotracheal intubation, surgery, colostomy, cardiac arrest, even ), benefits, limitations (e.g., missing a lesion), and all other alternatives (including no intervention) were explained to the patient who understood and agreed for the procedure. - Obtain EKG, Chest Xray and basic labs prior to procedure Plan of care discussed with patient and primary team. Patient verbalized understanding and agreed with the plan. Vital Signs/I&O Vital Signs Date Time Temp Pulse Resp B/P (MAP) Pulse Ox O2 Delivery O2 Flow Rate FiO2 09/11/18 05:53 70 18 144/78 (100) 99 Room Air 09/10/18 22:18 97.2 Laboratory Data CBC/BMP Laboratory Tests 09/11/18 02:53 Allergies Coded Allergies: amoxicillin (Verified Allergy, Unknown, "I don't know", 06/07/18) clavulanic acid (Verified Allergy, Unknown, "I don't know", 06/07/18) scopolamine (Verified Adverse Reaction, Mild, hallucinations, 06/07/18) Home Medications Scheduled Amlodipine Besylate (Amlodipine Besylate) 10 Mg Tablet, 10 MG PO DAILY, (Reported) Cholecalciferol (Vitamin D3) (Vitamin D3) 1,000 Unit Tablet, 1,000 UNIT PO DAILY , (Reported) Clopidogrel Bisulfate (Plavix) 75 Mg Tab, 75 MG PO DAILY, (Reported) Ferrous Sulfate (Ferrous Sulfate) 325 Mg Tab, 325 MG PO DAILY, (Reported) Gabapentin (Gabapentin) 100 Mg Cap, 100 MG PO QHS, (Reported) Magnesium Chloride (Slow-Mag) 1 Tab Tab, 2 TAB PO DAILY, (Reported) Simvastatin (Simvastatin) 20 Mg Tab, 20 MG PO DAILY, (Reported) Sodium Bicarbonate (Sodium Bicarbonate) 325 Mg Tab, 325 MG PO BID, (Reported) Tamsulosin HCl (Flomax) 0.4 Mg Cap, 1 CAP PO DAILY, (Reported) DALIA RUBALCAVA MD Sep 11, 2018 06:20
[2018-09-11] MEDS ORDERED: SUCCINYLCHOLINE 100 MG/5 ML SYRINGE (J0330) As Ordered ONE (06:25)
[2018-09-11] MEDS ORDERED: dexameTHASONE 4 MG/ML 1ML VIAL (J1100) As Ordered ONE (06:33)
[2018-09-11] MEDS ORDERED: ONDANSETRON 4MG/2ML VIAL (J2405) As Ordered ONE (06:33)
--- NOTE | 2018-09-11 06:57 | ROOR ---
Patient Name: Pardeep Stanley Procedure Date: 09/11/2018 4:53 AM Date of : 1930 Age: 87 Gender: Male Note Status: Finalized Procedure: Upper GI endoscopy Indications: Dysphagia, Foreign body in the esophagus Providers: Cedric Gomez MD Referring MD: 3. Emergency Dept 3. Emergency Dept Requesting Provider: Medicines: Monitored Anesthesia Care Complications: No immediate complications. Procedure: Pre-Anesthesia Assessment: - Prior to the procedure, a History and Physical was performed, and patient medications and allergies were reviewed. The patient is competent. The risks and benefits of the procedure and the sedation options and risks were discussed with the patient. All questions were answered and informed consent was obtained. Patient identification and proposed procedure were verified by the physician, the nurse and the anesthesiologist in the procedure room. Mental Status Examination: alert and oriented. Airway Examination: normal oropharyngeal airway and neck mobility. Respiratory Examination: clear to auscultation. CV Examination: normal. Prophylactic Antibiotics: The patient does not require prophylactic antibiotics. Prior Anticoagulants: The patient has taken no previous anticoagulant or antiplatelet agents. ASA Grade Assessment: III - A patient with severe systemic disease. After reviewing the risks and benefits, the patient was deemed in satisfactory condition to undergo the procedure. The anesthesia plan was to use monitored anesthesia care (MAC). Immediately prior to administration of medications, the patient was re-assessed for adequacy to receive sedatives. The heart rate, respiratory rate, oxygen saturations, blood pressure, adequacy of pulmonary ventilation, and response to care were monitored throughout the procedure. The physical status of the patient was re-assessed after the procedure. The Endoscope was introduced through the mouth, and advanced to the second part of duodenum. The upper GI endoscopy was accomplished without difficulty. The patient tolerated the procedure well. Findings: Food was found in the proximal esophagus. Removal of food was accomplished. One benign-appearing, intrinsic moderate (circumferential scarring or stenosis; an endoscope may pass) stenosis was found 20 cm from the incisors. This stenosis measured 9 mm (inner diameter) x 1 cm (in length). The stenosis was traversed. LA Grade A (one or more mucosal breaks less than 5 mm, not extending between tops of 2 mucosal folds) esophagitis with no bleeding was found in the distal esophagus. Mild gastric antral vascular ectasia was present in the gastric antrum and in the prepyloric region of the stomach. No gross lesions were noted in the duodenal bulb and in the second portion of the duodenum. Impression: - Food in the proximal esophagus. Removal was successful. - Benign-appearing esophageal stenosis. - LA Grade A reflux esophagitis. - Gastric antral vascular ectasia. - No gross lesions in the duodenal bulb and in the second portion of the duodenum. Recommendation: - Patient has a contact number available for emergencies. The signs and symptoms of potential delayed complications were discussed with the patient. Return to normal activities tomorrow. Written discharge instructions were provided to the patient. - Clear liquid diet for 1 day, then advance as tolerated to soft diet. - Use Protonix (pantoprazole) 40 mg PO twice daily - to be taken in morning (1/2 hour before breakfast) and at bedtime ( atleast 3 hours after last meal) for 3 months. - Repeat upper endoscopy in 3 months to check healing. - Return to GI clinic in [facility] (address [address], [address], [place] [address]) in 4 -- 6 weeks. Please call GI clinic @ [phone] for apppointment date and time. - Return to primary care physician. Cedric Gomez MD Cedric Gomez MD 09/11/2018 6:57:13 AM Electronically signed by Cedric Gomez MD Number of Addenda: 0 Note Initiated On: 09/11/2018 4:53 AM Estimated Blood Loss: Estimated blood loss: none.
[2018-09-11] MEDS ORDERED: ALBUTEROL SULFATE 2.5 MG/0.5 ML INH NEB SOLN INH ONE (07:15)
[2018-09-11] MEDS ORDERED: LR 1,000 ML IV SCH (07:15)
[2018-09-11] MEDS ORDERED: ONDANSETRON 4MG/2ML VIAL (J2405) IV PRN (07:15)
[2018-09-11 08:19] VITALS: BP 123/58
--- NOTE | 2018-09-11 09:12 | REP ---
CHEST, TWO VIEWS: HISTORY: Foreign body. COMPARISON: 06/07/2018. The lungs are hyperinflated. Bibasilar scarring is present. There is bilateral apical pleural thickening. The heart is normal in size. The pulmonary vasculature is normal in appearance. The bony structure is intact. There is no radiopaque foreign body. IMPRESSION: No acute disease. Electronically Signed by Garcia Mai MD 09/11/2018 09:28 A
--- NOTE | 2018-09-11 19:48 | ECGEPIP ---
[facility] - ED Test Date: 2018-09-11 Pat Name: USKHDEV HADDAD Department: Room: - Gender: Male Edi Manager: KCJ : 1930 Requested By: GILBERT HENNESSY PA-C Order Number: [id number] Reading MD: Ben Troncoso Measurements Intervals [place] Rate: 76 P: 78 [place]: 172 QRS: 49 QRSD: 82 T: 69 QT: 378 QTc: 427 Interpretive Statements SINUS RHYTHM POSSIBLE LEFT ATRIAL ENLARGEMENT SIMILAR TO 06/07/18 Electronically Signed on 09-11-2018 19:48:17 EDT by Ben Troncoso
== END 2018-09-11 08:32 | disposition home or self-care (01) ==
LOC: M ED 22:17 → M SDC 22:18
PROVIDERS: ATTEND Internal Medicine Gastroenterology
DX: T18.128A Food in esophagus causing other injury, initial encounter (principal); R13.10 Dysphagia, unspecified; K22.2 Esophageal obstruction; K21.0 Gastro-esophageal reflux disease with esophagitis; K31.819 Angiodysplasia of stomach and duodenum without bleeding; I12.9 Hypertensive chronic kidney disease with stage 1 through stage 4 chronic kidney disease, or unspecified chronic kidney disease; E78.5 Hyperlipidemia, unspecified; J44.9 Chronic obstructive pulmonary disease, unspecified; N18.4 Chronic kidney disease, stage 4 (severe); G47.30 Sleep apnea, unspecified; Z86.711 Personal history of pulmonary embolism; Z86.73 Personal history of transient ischemic attack (TIA), and cerebral infarction without residual deficits; Z72.0 Tobacco use; Z96.1 Presence of intraocular lens; Z79.01 Long term (current) use of anticoagulants
CPT/HCPCS: 43247; 70490; 71046; 80048; 80076; 85027; 93005; 99284; J0330; J1100; J1610; J2250; J2405; J3010

== ENCOUNTER → 2018-10-06 | Outpatient (CLI) | payer MEDICARE, OTHER ==
[~2018-10-06] MED LIST changes: +AMLO10TA5 PO; +CHOL100029 PO; +VITA100016 PO; -VITAD1000T PO
--- NOTE | 2018-10-09 10:20 | REP ---
MRI LUMBAR SPINE WITHOUT CONTRAST: HISTORY: Chronic kidney disease. Low back pain. Right leg pain. Comparison is made with imaging from CT study of the abdomen and pelvis dated April 27, 2016. TECHNIQUE: Sagittal and axial T1- and T2-weighted scans are acquired in the usual fashion with and without fat saturation. Sequences include spin echo, turbo spin-echo, and STIR imaging sequences. MRI FINDINGS: There is straightening of the normal lumbar lordosis. Lumbar vertebral body heights are preserved. Alignment is otherwise normal. There are advanced degenerative disc disease changes at L3-4. There is marrow edema on either side of the 3-4 disc. The disc shows decreased height of any increased T2 signal intensity consistent with atypical degenerative disc disease. These changes are chronic when comparison is made with the April 27, 2016 CT study. There is a fairly large Schmorl's node at the inferior endplate of L3. There is mild diffuse disc bulging at L3-4 and mild central canal stenosis is present due to these features along with facet hypertrophy and ligamentum flavum hypertrophy. At L4-5, there is loss of height in the 4-5 disc and minimal diffuse disc bulging indenting the ventral margin of the thecal sac. No central canal stenosis is noted. No foraminal stenosis is seen. At L5-S1, there is degenerative disc narrowing. Mild facet hypertrophy is present. No central canal stenosis is noted. There is right-sided neural foraminal narrowing mild in degree from discogenic spurring and disc bulging. The L2-3 level shows degenerative disc disease. There is no abnormality noted at L1-2. IMPRESSION: Advanced and somewhat atypical degenerative disc disease changes at L3-4 stable from the April 27, 2016 study. Mild central canal stenosis at L3-4. Degenerative disc changes are also noted at the L2-3, L4-5 end L5-S1. There is mild right-sided L5-S1 neural foraminal narrowing. Electronically Signed by Sheng Harry MD 10/09/2018 01:43 P
== END ==
LOC: M RAD 12:29
PROVIDERS: ATTEND Internal Medicine Nephrology
DX: N18.4 Chronic kidney disease, stage 4 (severe) (principal); M54.5 Low back pain; I12.9 Hypertensive chronic kidney disease with stage 1 through stage 4 chronic kidney disease, or unspecified chronic kidney disease

== ENCOUNTER 2018-12-25 11:15 | Day surgery (SDC) | payer MEDICARE, OTHER ==
[~2018-12-25] VITALS: Ht 166.4 cm; Wt 54.9 kg
[~2018-12-25 11:15] MED LIST changes: +ALBU83IN INH; +NS 1,000 ML IV ONE; +PANT40TA3 PO
[2018-12-25] MEDS ORDERED: PROPOFOL 200 MG/20 ML VIAL As Ordered ONE (11:42)
[2018-12-25] MEDS ORDERED: LIDOCAINE 2% INJ 100 MG/5 ML SDV (FOR ANES.) As Ordered ONE (11:42)
[2018-12-25] MEDS ORDERED: fentaNYL 100 MCG/2 ML INJECTION (J3010) As Ordered ONE (13:27)
--- NOTE | 2018-12-25 14:02 | ROOR ---
Patient Name: Pardeep Stanley Procedure Date: 12/25/2018 1:24 PM Date of : 1930 Age: 88 Room: [facility] Gender: Male Note Status: Finalized Procedure: Upper GI endoscopy Indications: Dysphagia, For therapy of esophageal stenosis Providers: Cedric Gomez MD Referring MD: Michael Jeronimo MD Requesting Provider: Medicines: Monitored Anesthesia Care Complications: No immediate complications. Procedure: Pre-Anesthesia Assessment: - Prior to the procedure, a History and Physical was performed, and patient medications and allergies were reviewed. The patient is competent. The risks and benefits of the procedure and the sedation options and risks were discussed with the patient. All questions were answered and informed consent was obtained. Patient identification and proposed procedure were verified by the physician, the nurse and the anesthesiologist in the procedure room. Mental Status Examination: alert and oriented. Airway Examination: normal oropharyngeal airway and neck mobility. Respiratory Examination: clear to auscultation. CV Examination: normal. Prophylactic Antibiotics: The patient does not require prophylactic antibiotics. Prior Anticoagulants: The patient has taken no previous anticoagulant or antiplatelet agents. ASA Grade Assessment: III - A patient with severe systemic disease. After reviewing the risks and benefits, the patient was deemed in satisfactory condition to undergo the procedure. The anesthesia plan was to use monitored anesthesia care (MAC). Immediately prior to administration of medications, the patient was re-assessed for adequacy to receive sedatives. The heart rate, respiratory rate, oxygen saturations, blood pressure, adequacy of pulmonary ventilation, and response to care were monitored throughout the procedure. The physical status of the patient was re-assessed after the procedure. The Endoscope was introduced through the mouth, and advanced to the second part of duodenum. The upper GI endoscopy was accomplished without difficulty. The patient tolerated the procedure well. Findings: One benign-appearing, intrinsic moderate stenosis was found 18 cm from the incisors. This stenosis measured 1.2 cm (inner diameter). The stenosis was traversed. Biopsies were taken with a cold forceps for histology. Verification of patient identification for the specimen was done by the physician and nurse using the patient's name, date and medical record number. Estimated blood loss was minimal. Localized severely congested mucosa was found in the gastric antrum. Biopsies were taken with a cold forceps for histology. The duodenal bulb and second portion of the duodenum were normal. Impression: - Benign-appearing esophageal stenosis. Biopsied. - Congestive gastropathy. Biopsied. - Normal duodenal bulb and second portion of the duodenum. Recommendation: - Patient has a contact number available for emergencies. The signs and symptoms of potential delayed complications were discussed with the patient. Return to normal activities tomorrow. Written discharge instructions were provided to the patient. - Chopped diet and mechanical soft diet. - Continue present medications. - Use Protonix (pantoprazole) 40 mg PO daily - to be taken search engine optimizer 1/2 hour before breakfast for 8 weeks. - Follow an antireflux regimen. - Await pathology results. - Repeat upper endoscopy in 3 months to check healing, to evaluate the response to therapy and depending on the symptoms and clinical response. - Return to GI clinic in [facility] (address [address], [address], [place] [address]) in 4 -- 6 weeks. Please call GI clinic @ [phone] for apppointment date and time. - Return to primary care physician. Cedric Gomez MD Cedric Gomez MD 12/25/2018 2:02:01 PM Electronically signed by Cedric Gomez MD Number of Addenda: 0 Note Initiated On: 12/25/2018 1:24 PM Estimated Blood Loss: Estimated blood loss was minimal.
[2018-12-25 14:05] VITALS: BP 115/58
== END 2018-12-25 14:25 | disposition home or self-care (01) ==
LOC: M OPP 11:15
PROVIDERS: ATTEND Internal Medicine Gastroenterology
DX: K22.2 Esophageal obstruction (principal); K31.89 Other diseases of stomach and duodenum; R13.10 Dysphagia, unspecified; G47.30 Sleep apnea, unspecified; J44.9 Chronic obstructive pulmonary disease, unspecified; I35.9 Nonrheumatic aortic valve disorder, unspecified; Z79.899 Other long term (current) drug therapy; Z88.8 Allergy status to other drugs, medicaments and biological substances; Z88.1 Allergy status to other antibiotic agents
CPT/HCPCS: 43239; 88305; J3010

== ENCOUNTER → 2019-01-25 | Outpatient (REF) | payer MEDICARE, OTHER ==
[~2019-01-25] MED LIST changes: -NS 1,000 ML IV ONE; -SIMV20TA2 PO; +SIMV20TA22 PO
[2019-01-25 18:29] LABS: PERCENT SATURATION 35.3 % (19.7-50.0)
== END ==
LOC: M LAB REF 17:05
PROVIDERS: ATTEND Internal Medicine Nephrology
DX: D64.9 Anemia, unspecified (principal); N18.9 Chronic kidney disease, unspecified

== ENCOUNTER 2019-01-26 11:12 | Outpatient (CLI) | payer MEDICARE, OTHER ==
[2019-01-26] VITALS (12 sets, daily range): BP systolic 110–130; BP diastolic 52–65
[~2019-01-26] VITALS: Ht 165.1 cm; Wt 55.3 kg
[2019-01-26] MEDS ORDERED: diphenhydrAMINE 25 MG CAP PO ONE (11:45)
[2019-01-26] MEDS ORDERED: FUROSEMIDE 20 MG/2 ML VIAL (J1940) IV ONE (15:00)
== END 2019-01-26 20:38 | disposition home or self-care (01) ==
LOC: M OPCLI4PV 11:12 → M MSPAV 11:12 → M OPCLI4PV 20:38
PROVIDERS: ATTEND Internal Medicine Nephrology
DX: D64.9 Anemia, unspecified (principal); Z88.0 Allergy status to penicillin; Z88.8 Allergy status to other drugs, medicaments and biological substances
CPT/HCPCS: 36430; 96374; J1940; P9016

== ENCOUNTER 2019-02-22 11:56 | Day surgery (SDC) | payer MEDICARE, OTHER ==
[~2019-02-22] VITALS: Ht 165.1 cm; Wt 55.2 kg
[~2019-02-22 11:56] MED LIST changes: +NS 1,000 ML IV ONE; +VITA100066 PO
[2019-02-22] MEDS ORDERED: propofoL 200 MG/20 ML VIAL As Ordered ONE (12:23)
[2019-02-22] MEDS ORDERED: LIDOCAINE 2% INJ 100 MG/5 ML SDV (FOR ANES.) As Ordered ONE (12:23)
--- NOTE | 2019-02-22 14:36 | ROOR ---
Patient Name: Pardeep Stanley Procedure Date: 02/22/2019 1:29 PM Date of : 1930 Age: 88 Room: [facility] Gender: Male Note Status: Finalized Procedure: Upper GI endoscopy Indications: Treatment of bleeding vascular abnormality in the stomach, For therapy of angioectasia of the stomach, For therapy of gastrointestinal bleeding Providers: Cedric Gomez MD Referring MD: Michael Jeronimo MD Requesting Provider: Medicines: Monitored Anesthesia Care Complications: No immediate complications. Procedure: Pre-Anesthesia Assessment: - Prior to the procedure, a History and Physical was performed, and patient medications and allergies were reviewed. The patient is competent. The risks and benefits of the procedure and the sedation options and risks were discussed with the patient. All questions were answered and informed consent was obtained. Patient identification and proposed procedure were verified by the physician, the nurse and the anesthesiologist in the procedure room. Mental Status Examination: alert and oriented. Airway Examination: normal oropharyngeal airway and neck mobility. Respiratory Examination: clear to auscultation. CV Examination: normal. Prophylactic Antibiotics: The patient does not require prophylactic antibiotics. Prior Anticoagulants: The patient has taken no previous anticoagulant or antiplatelet agents. ASA Grade Assessment: III - A patient with severe systemic disease. After reviewing the risks and benefits, the patient was deemed in satisfactory condition to undergo the procedure. The anesthesia plan was to use monitored anesthesia care (MAC). Immediately prior to administration of medications, the patient was re-assessed for adequacy to receive sedatives. The heart rate, respiratory rate, oxygen saturations, blood pressure, adequacy of pulmonary ventilation, and response to care were monitored throughout the procedure. The physical status of the patient was re-assessed after the procedure. The Endoscope was introduced through the mouth, and advanced to the second part of duodenum. The upper GI endoscopy was accomplished without difficulty. The patient tolerated the procedure well. Findings: No gross lesions were noted in the entire esophagus. 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 Focal radiofrequency ablation of gastric antral vascular ectasia in the stomach was performed. With the endoscope in place, the position and extent of the abnormal mucosa and appropriate anatomic landmarks were noted. The abnormal mucosa was irrigated with water. Gastric contents were suctioned. The radiofrequency channel ablation catheter was introduced through the endoscope working channel. The endoscope with the ablation catheter was advanced to the areas of abnormal mucosa. The endoscope with the channel ablation catheter was positioned under direct visualization so that the catheter was placed in contact with the surface of the abnormal mucosa. Energy was applied twice at 12 J/cm2. Ablation was repeated in a likewise fashion to all visible abnormal mucosa. The ablation catheter was removed through the endoscope working channel. The areas where abnormal mucosa had been ablated were examined. There was no unablated abnormal mucosa present. The endoscope was then removed. The second portion of the duodenum was normal. Impression: - No gross lesions in esophagus. - Gastric antral vascular ectasia with bleeding. Treated with radiofrequency ablation. - Normal second portion of the duodenum. - No specimens collected. Recommendation: - Patient has a contact number available for emergencies. The signs and symptoms of potential delayed complications were discussed with the patient. Return to normal activities tomorrow. Written discharge instructions were provided to the patient. - Clear liquid diet for 1 day, then advance as tolerated to high fiber diet. - Continue present medications. - Resume Plavix (clopidogrel) at prior dose tomorrow. Refer to primary physician for further adjustment of therapy. - Use Protonix (pantoprazole) 40 mg PO twice daily - to be taken in morning (1/2 hour before breakfast) and at bedtime ( atleast 3 hours after last meal) for 6 weeks. - Repeat upper endoscopy in 3 months for retreatment and depending on the symptoms and clinical response. - Return to GI clinic in [facility] (address [address], [address], [place], [facility] [place]) in 4 -- 6 weeks. Please call GI clinic @ [phone] for apppointment date and time. - Return to primary care physician. Cedric Gomez MD Cedric Gomez MD 02/22/2019 2:35:47 PM Electronically signed by Cedric Gomez MD Number of Addenda: 0 Note Initiated On: 02/22/2019 1:29 PM Estimated Blood Loss: Estimated blood loss was minimal.
[2019-02-22 16:15] VITALS: BP 133/67
== END 2019-02-22 16:29 | disposition home or self-care (01) ==
LOC: M OPP 11:56
PROVIDERS: ATTEND Internal Medicine Gastroenterology
DX: K31.811 Angiodysplasia of stomach and duodenum with bleeding (principal); Z79.899 Other long term (current) drug therapy; Z88.0 Allergy status to penicillin; Z88.8 Allergy status to other drugs, medicaments and biological substances; Z87.891 Personal history of nicotine dependence

== ENCOUNTER 2019-02-25 10:58 | Emergency (ER) | payer MEDICARE, OTHER ==
[~2019-02-25] VITALS: Ht 165.1 cm; Wt 56.2 kg
[~2019-02-25 10:58] MED LIST changes: -NS 1,000 ML IV ONE
--- NOTE | 2019-02-25 12:35 | REP ---
Chest x-ray: Two views. History: Shortness of breath. Comparison study: September 11, 2018. Findings: There is calcific pleural plaquing bilaterally unchanged consistent with previous asbestos exposure. The lungs are somewhat hyperinflated but remain clear. Pleural angles are sharp. The heart is mildly enlarged. Cardiothoracic ratio is 51.5%. The aorta is tortuous and calcific. Pulmonary vasculature is not increased. Impression: Mild cardiomegaly. Hyperinflation. Otherwise no acute disease. Electronically Signed by Sheng Harry MD 02/25/2019 12:28 P
[2019-02-25 13:04] LABS: BASO % 0.5 % (0.0-1.0); EOS # 0.5 10^3/uL (0.0-0.5); EOS % 8.6 % (0.0-3.0); HEMATOCRIT 31.5 % (42.0-52.0); HEMOGLOBIN 10.2 g/dl (13.5-17.5); LYMPH # 0.6 10^3/uL (1.5-5.0); LYMPH % 11.2 % (24.0-44.0); MEAN CORPUSCULAR HEMOGLOBIN 31.7 pg (27.0-33.0); MEAN CORPUSCULAR HGB CONC 32.4 g/dl (32.0-36.5); MEAN CORPUSCULAR VOLUME 97.8 fl (80.0-96.0); MONO # 0.7 10^3/uL (0.0-0.8); MONO % 12.4 % (0.0-5.0); NEUTROPHILS # 3.8 10^3/uL (1.5-8.5); PLATELET COUNT, AUTOMATED 168 10^3/uL (150-450); RED BLOOD COUNT 3.22 10^6/uL (4.30-6.10); WHITE BLOOD COUNT 5.7 10^3/uL (4.0-10.0)
[2019-02-25 13:15] LABS: INR 1.12; PARTIAL THROMBOPLASTIN TIME 35.5 SECONDS (25.0-38.4); PROTHROMBIN TIME 14.1 SECONDS (11.8-14.0)
[2019-02-25 13:28] LABS: CALCIUM LEVEL 8.5 MG/DL (8.8-10.2); CREATININE FOR GFR 2.24 MG/DL (0.70-1.30); GLOMERULAR FILTRATION RATE 29.6 (>35); PERCENT SATURATION 5.4 % (19.7-50.0); POTASSIUM SERUM 4.9 MEQ/L (3.5-5.1)
[2019-02-25 13:31] LABS: INFLUENZA A AMPLIFICATION NEGATIVE (NEGATIVE); INFLUENZA B AMPLIFICATION NEGATIVE (NEGATIVE)
[2019-02-25] MEDS ORDERED: ALBU83IN NEB (13:46)
[2019-02-25] MEDS ORDERED: PRED10TA2 PO (13:46)
[2019-02-25 13:56] VITALS: BP 155/72
== END 2019-02-25 14:14 | disposition home or self-care (01) ==
LOC: M ED 10:58
DX: J44.1 Chronic obstructive pulmonary disease with (acute) exacerbation (principal); R91.8 Other nonspecific abnormal finding of lung field; K21.9 Gastro-esophageal reflux disease without esophagitis; J20.9 Acute bronchitis, unspecified; Z87.891 Personal history of nicotine dependence; Z79.899 Other long term (current) drug therapy; Z88.0 Allergy status to penicillin; Z88.8 Allergy status to other drugs, medicaments and biological substances; Z92.89 Personal history of other medical treatment; Z87.19 Personal history of other diseases of the digestive system

== ENCOUNTER 2019-02-27 07:52 | Outpatient (CLI) | payer MEDICARE, OTHER ==
[~2019-02-27] VITALS: Ht 165.1 cm; Wt 56.4 kg
[~2019-02-27 07:52] MED LIST changes: +ALBU83IN NEB; +PRED10TA2 PO
[2019-02-27 08:10] VITALS: BP 141/63
[2019-02-27] MEDS ORDERED: FUROSEMIDE 20 MG/2 ML VIAL (J1940) IV ONE (08:15)
[2019-02-27] MEDS ORDERED: ALBUTEROL SULFATE 2.5 MG/0.5 ML INH NEB SOLN INH PRN (08:15)
[2019-02-27] MEDS ORDERED: methylPREDNISolone INJ 125 MG/2 ML VIAL (J2930) IV PRN (08:15)
[2019-02-27] MEDS ORDERED: NS 1,000 ML IV SCH (08:15)
[2019-02-27] MEDS ORDERED: EPINEPHrine INJ 1 MG/ML 1ML VIAL IM PRN (08:15)
[2019-02-27] MEDS ORDERED: diphenhydrAMINE INJ 50MG/ML VIAL (J1200) IV PRN (08:15)
[2019-02-27] MEDS ORDERED: FERRIC CARBOXYMALTOSE INJ 750 MG in NS 250 ML IV ONE (08:15)
[2019-02-27 08:40] VITALS: BP 133/61
[2019-02-27 09:30] VITALS: BP 128/58
[2019-02-27 10:10] VITALS: BP 151/67
== END 2019-02-27 10:10 | disposition home or self-care (01) ==
LOC: M INFU 07:52
PROVIDERS: ATTEND Internal Medicine Nephrology
DX: D50.9 Iron deficiency anemia, unspecified (principal); Z88.0 Allergy status to penicillin; Z88.8 Allergy status to other drugs, medicaments and biological substances
CPT/HCPCS: 96365; J1439; J1940

== ENCOUNTER 2019-03-06 13:09 | Outpatient (CLI) | payer MEDICARE, OTHER ==
[~2019-03-06] VITALS: Ht 165.1 cm; Wt 56.4 kg
[2019-03-06 13:30] VITALS: BP 129/58
[2019-03-06] MEDS ORDERED: EPINEPHrine INJ 1 MG/ML 1ML VIAL IM PRN (13:30)
[2019-03-06] MEDS ORDERED: diphenhydrAMINE INJ 50MG/ML VIAL (J1200) IV PRN (13:30)
[2019-03-06] MEDS ORDERED: methylPREDNISolone INJ 125 MG/2 ML VIAL (J2930) IV PRN (13:30)
[2019-03-06] MEDS ORDERED: ALBUTEROL SULFATE 2.5 MG/0.5 ML INH NEB SOLN INH PRN (13:30)
[2019-03-06] MEDS ORDERED: NS 1,000 ML IV SCH (14:00)
[2019-03-06] MEDS ORDERED: FERRIC CARBOXYMALTOSE INJ 750 MG in NS 250 ML IV ONE (14:00)
[2019-03-06 15:10] VITALS: BP 125/59
[2019-03-06] MEDS ORDERED: FUROSEMIDE 20 MG/2 ML VIAL (J1940) IV ONE (15:30)
[2019-03-06 15:45] VITALS: BP 117/55
== END 2019-03-06 15:45 | disposition home or self-care (01) ==
LOC: M INFU 13:09
PROVIDERS: ATTEND Internal Medicine Nephrology
DX: D50.9 Iron deficiency anemia, unspecified (principal); Z88.0 Allergy status to penicillin; Z88.1 Allergy status to other antibiotic agents; Z88.9 Allergy status to unspecified drugs, medicaments and biological substances
CPT/HCPCS: 96365; 96375; J1439; J1940

== ENCOUNTER → 2019-04-08 | Outpatient (CLI) | payer MEDICARE, OTHER ==
[2019-04-08 18:08] LABS: CREATININE FOR GFR 2.53 MG/DL (0.70-1.30); GLOMERULAR FILTRATION RATE 25.7 (>35)
[2019-04-08 18:09] LABS: BASO % 0.3 % (0.0-1.0); EOS # 0.2 10^3/uL (0.0-0.5); EOS % 2.6 % (0.0-3.0); HEMATOCRIT 29.6 % (42.0-52.0); HEMOGLOBIN 9.5 g/dl (13.5-17.5); LYMPH # 1.3 10^3/uL (1.5-5.0); LYMPH % 22.1 % (24.0-44.0); MEAN CORPUSCULAR HEMOGLOBIN 33.8 pg (27.0-33.0); MEAN CORPUSCULAR HGB CONC 32.1 g/dl (32.0-36.5); MEAN CORPUSCULAR VOLUME 105.3 fl (80.0-96.0); MONO # 0.6 10^3/uL (0.0-0.8); MONO % 9.7 % (0.0-5.0); NEUTROPHILS # 3.8 10^3/uL (1.5-8.5); NEUTROPHILS % 64.8 % (36.0-66.0); PLATELET COUNT, AUTOMATED 222 10^3/uL (150-450); RED BLOOD COUNT 2.81 10^6/uL (4.30-6.10); WHITE BLOOD COUNT 5.8 10^3/uL (4.0-10.0)
== END ==
LOC: M PLALAB 14:05
PROVIDERS: ATTEND Internal Medicine Gastroenterology
DX: K31.811 Angiodysplasia of stomach and duodenum with bleeding (principal)

== ENCOUNTER → 2019-06-27 | Outpatient (REF) | payer MEDICARE, OTHER ==
[2019-06-27 18:30] LABS: PERCENT SATURATION 12.1 % (19.7-50.0)
[2019-06-27 18:42] LABS: BASO % 0.3 % (0.0-1.0); EOS # 0.5 10^3/uL (0.0-0.5); EOS % 7.1 % (0.0-3.0); HEMATOCRIT 33.6 % (42.0-52.0); HEMOGLOBIN 10.6 g/dl (13.5-17.5); LYMPH # 1.4 10^3/uL (1.5-5.0); LYMPH % 21.8 % (24.0-44.0); MEAN CORPUSCULAR HEMOGLOBIN 31.7 pg (27.0-33.0); MEAN CORPUSCULAR HGB CONC 31.5 g/dl (32.0-36.5); MEAN CORPUSCULAR VOLUME 100.6 fl (80.0-96.0); MONO # 0.5 10^3/uL (0.0-0.8); MONO % 7.9 % (0.0-5.0); NEUTROPHILS % 62.7 % (36.0-66.0); PLATELET COUNT, AUTOMATED 229 10^3/uL (150-450); RED BLOOD COUNT 3.34 10^6/uL (4.30-6.10); WHITE BLOOD COUNT 6.3 10^3/uL (4.0-10.0)
== END ==
LOC: M LAB REF 16:38
PROVIDERS: ATTEND Internal Medicine Nephrology
DX: D50.9 Iron deficiency anemia, unspecified (principal); I12.9 Hypertensive chronic kidney disease with stage 1 through stage 4 chronic kidney disease, or unspecified chronic kidney disease; N18.4 Chronic kidney disease, stage 4 (severe)

== ENCOUNTER 2019-07-04 12:50 | Outpatient (CLI) | payer MEDICARE, OTHER ==
[~2019-07-04] VITALS: Ht 166.4 cm; Wt 55.9 kg
[2019-07-04 12:55] VITALS: BP 150/65
[2019-07-04] MEDS ORDERED: NS 1,000 ML IV SCH (13:15)
[2019-07-04] MEDS ORDERED: EPINEPHrine INJ 1 MG/ML 1ML AMP IM PRN (13:15)
[2019-07-04] MEDS ORDERED: methylPREDNISolone INJ 125 MG/2 ML VIAL (J2930) IV PRN (13:15)
[2019-07-04] MEDS ORDERED: FERRIC CARBOXYMALTOSE INJ 750 MG in NS 250 ML IV ONE (13:15)
[2019-07-04] MEDS ORDERED: ALBUTEROL SULFATE 2.5 MG/0.5 ML INH NEB SOLN INH PRN (13:15)
[2019-07-04] MEDS ORDERED: diphenhydrAMINE 50MG/ML VIAL (J1200) IV PRN (13:15)
[2019-07-04 14:35] VITALS: BP 136/63
== END 2019-07-04 14:50 | disposition home or self-care (01) ==
LOC: M INFU 12:50
PROVIDERS: ATTEND Internal Medicine Nephrology
DX: D50.9 Iron deficiency anemia, unspecified (principal); Z88.0 Allergy status to penicillin; Z88.8 Allergy status to other drugs, medicaments and biological substances
CPT/HCPCS: 96365; J1439

== ENCOUNTER 2019-07-11 13:22 | Outpatient (CLI) | payer MEDICARE, OTHER ==
[~2019-07-11] VITALS: Ht 166.4 cm; Wt 55.8 kg
[2019-07-11] MEDS ORDERED: ALBUTEROL SULFATE 2.5 MG/0.5 ML INH NEB SOLN INH PRN (13:30)
[2019-07-11] MEDS ORDERED: FERRIC CARBOXYMALTOSE INJ 750 MG in NS 250 ML IV ONE (13:30)
[2019-07-11] MEDS ORDERED: EPINEPHrine INJ 1 MG/ML 1ML AMP IM PRN (13:30)
[2019-07-11] MEDS ORDERED: methylPREDNISolone INJ 125 MG/2 ML VIAL (J2930) IV PRN (13:30)
[2019-07-11] MEDS ORDERED: diphenhydrAMINE 50MG/ML VIAL (J1200) IV PRN (13:30)
[2019-07-11] MEDS ORDERED: NS 1,000 ML IV SCH (13:30)
[2019-07-11 14:01] VITALS: BP 130/63
[2019-07-11 15:05] VITALS: BP 139/63
== END 2019-07-11 15:05 | disposition home or self-care (01) ==
LOC: M INFU 13:22
PROVIDERS: ATTEND Internal Medicine Nephrology
DX: D50.9 Iron deficiency anemia, unspecified (principal); Z88.8 Allergy status to other drugs, medicaments and biological substances
CPT/HCPCS: 96365; J1439

== ENCOUNTER → 2019-11-18 | Outpatient (REF) | payer MEDICARE, OTHER ==
[~2019-11-18] MED LIST changes: -AMLO10TA5 PO; +AMLO1TAB24 PO; +AMLO1TAB25 PO; -AMLO5TAB6 PO; +PANT40TA29 PO; -PANT40TA3 PO
[2019-11-18 18:12] LABS: PERCENT SATURATION 16.3 % (19.7-50.0)
== END ==
LOC: M LAB REF 16:57
PROVIDERS: ATTEND Internal Medicine Nephrology
DX: D50.9 Iron deficiency anemia, unspecified (principal)

== ENCOUNTER → 2020-04-28 | Outpatient (CLI) | payer MEDICARE, OTHER ==
[~2020-04-28] MED LIST changes: +LIQUID POLIBAR PLUS 105% w/v 1900ML BTL As Ordered ONE
--- NOTE | 2020-04-28 18:15 | REP ---
INDICATION: HEMORRHAGE ANUS/RECTUM, (+) OCCULT BLOOD. COMPARISON: None. TECHNIQUE: The procedure was performed under the direct supervision of Dr. Fry. The images were reviewed with Dr. Fry. Liquid barium and air were instilled into the colon in a retrograde flow of the barium and air mixture. FINDINGS: The undercar specialist film shows no organomegaly or pathological mass is. The intestinal gas pattern is nonspecific. There are vascular calcifications identified. There are surgical clips noted in the right upper quadrant. The colon is normal in position and contour. There are innumerable diverticula in the sigmoid and descending colon. This limits evaluation for polyps. There is residual fecal material in the colon. There is free flow of contrast to the cecum. There are no annular constricting lesions. There are no polypoid masses identified. 1.1 minutes of fluoroscopy time was utilized for this procedure. IMPRESSION: There is diverticulosis without evidence of diverticulitis. Otherwise unremarkable double-contrast barium enema. <Electronically signed by Ric Vela > 04/28/20 1720 <Electronically signed by Drew Fry > 04/28/20 1811
== END ==
LOC: M RAD 09:40
PROVIDERS: ATTEND Internal Medicine Gastroenterology
DX: K62.5 Hemorrhage of anus and rectum (principal)

== ENCOUNTER → 2020-06-05 | Outpatient (REF) | payer MEDICARE, OTHER ==
[~2020-06-05] MED LIST changes: -LIQUID POLIBAR PLUS 105% w/v 1900ML BTL As Ordered ONE
== END ==
LOC: M LAB REF 16:41
PROVIDERS: ATTEND Family Medicine
DX: D64.9 Anemia, unspecified (principal)

== ENCOUNTER → 2020-08-31 | Outpatient (CLI) | payer MEDICARE, OTHER ==
--- NOTE | 2020-09-04 14:13 | REP ---
INDICATION: ABN FINDING OF LUNG COMPARISON: None. TECHNIQUE: Standard helical technique without intravenous contrast administration FINDINGS: Limited evaluation of the mediastinum and pulmonary manohar show no evidence of a mass or adenopathy. There are no pleural or pericardial effusions. The imaged upper abdomen shows a partially imaged round 1.7 cm sized low-density structure arising from the superior pole the right kidney the imaged portion of which has water density Hounsfield unit readings. There is left renal atrophy and a partially imaged irregular density arising from the imaged portion of the left kidney. Bone window technique throughout the examination shows the bones to be demineralized with spinal degenerative changes. Evaluation of the lung carter shows bilateral areas of calcific and noncalcific pleural plaquing. There is heavy appearing biapical pleuroparenchymal scarring some of which has calcification within it left greater than right. The lung carter are hyperexpanded. Biapical emphysematous changes are noted. There is a calcifying nodule in the right middle lobe which measures 6 mm. There is a 6 mm size nodule in the right major fissure mid lung zone region. IMPRESSION: 1. 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 There is no revised Fleischner society criteria recommending follow-up for such abnormalities. Follow-up should be based on clinical assessment, however, since I have no priors comparison short interval 3 month follow-up is suggested. 2. Calcific and noncalcific pleural plaquing. 3. Bilateral renal findings and representing a change from the latest prior abdominal and pelvic CT of 04/27/2016. Further evaluation with contrast-enhanced CT is recommended. 4. Other findings as described above. <Electronically signed by Jose Alberto Fish > 09/04/20 4630
== END ==
LOC: M PLAIMG 13:03
PROVIDERS: ATTEND Internal Medicine Pulmonary Disease
DX: R91.8 Other nonspecific abnormal finding of lung field (principal); N26.1 Atrophy of kidney (terminal); N28.89 Other specified disorders of kidney and ureter; J43.9 Emphysema, unspecified

== ENCOUNTER → 2020-09-01 | Outpatient (REF) | payer MEDICARE, OTHER | LOC: M LAB REF 19:08 | PROVIDERS: ATTEND Internal Medicine Nephrology | DX: N20.0 Calculus of kidney (principal) ==